=== PATIENT | female | born 1990 | race Caucasian/White ===

== ENCOUNTER 2021-10-12 09:59 | Outpatient (CLI) | payer OTHER, SELFPAY ==
[2021-10-12 11:13] LABS: Hematocrit 37.7 % (37.0-47.0); Hemoglobin 12.8 g/dL (12.0-15.0); Mean Corpuscular Hemoglobin 32.7 pg (26-34); Mean Corpuscular Volume 96.2 fl (80-100); Mean Platelet Volume 9.7 fl (7.4-10.4); Platelet Count Result 154 k/mm3 (150-375); Red Blood Count 3.92 M/mm3 (4.2-5.4); Red Cell Distribution Width 12.6 % (11.5-14.5); White Blood Count 10.6 K/mm3 (4.5-10.0)
[2021-10-12 11:22] LABS: Glucose 1 Hour PP 50gm Dose 87 mg/dL
[2021-10-12 12:03] LABS: HIV 1/2 Ab P24 Ag Result Negative (Negative)
== END 2021-10-12 10:00 | disposition home or self-care (01) ==
LOC: ANHLAB 10:01
PROVIDERS: Visit Provider Obstetrics & Gynecology
DX: Z34.90 Encounter for supervision of normal pregnancy, unspecified, unspecified trimester (principal); Z3A.00 Weeks of gestation of pregnancy not specified
CPT/HCPCS: 36415; 82947; 85027; 86703; G0432

== ENCOUNTER 2021-11-11 14:39 | Observation (INO) | payer OTHER, SELFPAY ==
--- NOTE | 2021-11-11 15:07 | OBADM ---
This patient, Alicia Ochoa, admitted to the OB room OB Post 116 for observation. Patient/family oriented to hospital policies and general routines including ID bracelet, bed and alarms, visiting hours, pain management, procedures, bathroom and other care routines, personal items, smoking policy, room service/diet, and visiting hours. Patient/Family are encouraged to report perceived risks to care and to ask questions if they do not understand what they are told or what they should do.
[2021-11-11 15:16] VITALS: BP 112/82; PULSE 81
[2021-11-11 15:31] VITALS: BP 114/76; PULSE 83
--- NOTE | 2021-11-11 15:47 | PM.OBTRLD ---
OB - Triage/Final Diagnosis Visit Information Reason for evaluation: other ( vaginal spotting yesterday. This has resolved.) Comments/Additional reasons for admission: I have assessed the risk for this patient, Aliciarodrigo Ochoa, and determined that she would benefit from observation care. Evaluation Vital signs: Vital Signs - 24 hr 11/11/21 15:16 11/11/21 15:31 Pulse Rate 81 83 Blood Pressure 112/82 114/76
--- NOTE | 2021-11-11 16:51 | PC.NURSE ---
1536- Spoke with DONNA Tamayo and symptoms reviewed. Orders to discharge to home.
== END 2021-11-11 16:05 | disposition home or self-care (01) ==
PROVIDERS: Admitting Provider Obstetrics & Gynecology; PCP Internal Medicine; Visit Provider Obstetrics & Gynecology
DX: O26.853 Spotting complicating pregnancy, third trimester (principal); Z3A.32 32 weeks gestation of pregnancy
CPT/HCPCS: G0378; G0379

== ENCOUNTER 2021-11-20 21:07 | Observation (INO) | payer OTHER, SELFPAY ==
[2021-11-20 21:31] VITALS: BP 125/86; PULSE 92
[2021-11-20 22:00] VITALS: BMI 25.2
[2021-11-20 22:02] LABS: Add Urine Microscopic? NO; Appearance Urine Clear (Clear); Bilirubin Urine Negative (Negative); Blood Urine Negative (Negative); Color Urine Colorless (Yellow); Glucose Urine UA Negative (Negative); Ketones Urine Negative (Negative); Leukocyte Esterase Ur Negative LEU/UL (NEGATIVE); Nitrate Urine Negative (Negative); Protein Urine Negative (Negative); Urobilinogen Urine Negative mg/dL (<2.0)
--- NOTE | 2021-11-21 12:21 | PM.OBTRLD ---
OB - Triage/Final Diagnosis Visit Information Comments/Additional reasons for admission: I have assessed the risk for this patient, Alicia Ochoa, and determined that she would benefit from observation care. Evaluation Laboratory results: Laboratory Tests 11/20/21 21:37 Urine Color Colorless Urine Appearance Clear Urine pH 7.0 Ur Specific [place] 1.000 L Urine Protein Negative Urine Glucose (UA) Negative Urine Ketones Negative Ur Blood (Man) Negative Urine Nitrate Negative Urine Bilirubin Negative Urine Urobilinogen Negative Ur Leukocyte Esterase Negative Vital signs: Vital Signs - 24 hr 11/20/21 21:31 Pulse Rate 92 Blood Pressure 125/86 Final Diagnosis (1) Abdominal pain affecting : Code(s): O26.899 - Other specified related conditions, unspecified trimester; R10.9 - Unspecified abdominal pain Status: Acute
== END 2021-11-20 22:55 | disposition home or self-care (01) ==
PROVIDERS: Admitting Provider Obstetrics & Gynecology; PCP Internal Medicine; Visit Provider Obstetrics & Gynecology
DX: O26.893 Other specified pregnancy related conditions, third trimester (principal); R10.9 Unspecified abdominal pain; Z3A.33 33 weeks gestation of pregnancy
CPT/HCPCS: 81003; 87086; G0378; G0379

== ENCOUNTER → 2021-11-25 13:18 | Outpatient (CLI) | payer OTHER, SELFPAY ==
--- NOTE | ~2021-11-25 | US_ITS ---
US OB follow up DATE: 11/25/2021 14:02 INDICATION: Vaginal bleeding, spotting 2 weeks ago TECHNIQUE: Real-time imaging via transabdominal approach COMPARISON: None FINDINGS: Live cordero intrauterine gestation with fetus in vertex presentation. heart rate of 125 bpm. Anterior placenta, no evidence of previa. OR[place]O measures 7.9 cm, slightly below 5th percentile ORLANOD of 8.1 cm. 95th percentile [place] is 24.8 cm. Biparietal diameter measures 8.53 cm; 34 weeks 3 days Head circumference 31.11 centimeters; 34 weeks 6 days Abdominal circumference 29.76 cm; 33 weeks 5 days Femur length 6.47 cm; 33 weeks 3 days Composite age by Hadlock formula is 34 weeks 1 day +/- 2 weeks 3 days with NESOTR of 01/05/2022, same as d etermined by LMP. Estimated weight is 2279 +/- 341.9 g. Estimated weight-GP: 33.6% Femur length/BPD 75.84, within normal range of 71.0-87.0 Head circumference/abdominal circumference 1.05, within normal range of 0.94-1.11 Femur length/abdominal circumference 21.73, within normal range of 20.00-24.00 Femur length/head circumference 20.79, within normal range of 19.50-21.87 IMPRESSION: Borderline oligohydramnios, with OR[place]O of 7.9 (5th percentile [place]O: 8.1 cm Estimated gestational age of 34 weeks 1 day +/- 2 weeks 3 days with NESTOR of 01/05/2022 Estimated weight is 2279 +/- 341.9 g Reviewed, dictated and finalized at [facility]. Reviewed, dictated and finalized at location A. IMPRESSION: Borderline oligohydramnios, with OR[place]O of 7.9 (5th percentile OLRANDO: 8. 1 cm Estimated gestational age of 34 weeks 1 day +/- 2 weeks 3 days with NESTOR of 2021 Estimated weight is 2279 +/- 341.9 g
== END ==
PROVIDERS: Visit Provider Obstetrics & Gynecology
DX: O26.853 Spotting complicating pregnancy, third trimester (principal); Z3A.34 34 weeks gestation of pregnancy
CPT/HCPCS: 76816

== ENCOUNTER 2021-12-04 18:20 | Observation (INO) | payer OTHER, SELFPAY ==
--- NOTE | 2021-12-04 18:20 | OBADM ---
This patient, Alicia Ochoa, admitted to the OB room OB Post 115 for observation. Patient/family oriented to hospital policies and general routines including ID bracelet, bed and alarms, visiting hours, pain management, procedures, bathroom and other care routines, personal items, smoking policy, room service/diet, and visiting hours. Patient/Family are encouraged to report perceived risks to care and to ask questions if they do not understand what they are told or what they should do.
[2021-12-04 18:30] VITALS: BMI 25.2
[2021-12-04 18:32] VITALS: BP 149/75; PULSE 78
[2021-12-04 18:45] VITALS: BP 137/77; PULSE 75
[2021-12-04 19:00] VITALS: BP 136/86; PULSE 73
[2021-12-04 19:15] VITALS: BP 128/78; PULSE 71
--- NOTE | 2021-12-04 21:49 | PM.OBTRLD ---
OB - Triage/Final Diagnosis Visit Information Comments/Additional reasons for admission: I have assessed the risk for this patient, Alicia Ochoa, and determined that she would benefit from observation care. Evaluation Vital signs: Vital Signs - 24 hr 12/04/21 18:32 12/04/21 18:45 12/04/21 19:00 Pulse Rate 78 75 73 Blood Pressure 149/75 H 137/77 136/86 12/04/21 19:15 Pulse Rate 71 Blood Pressure 128/78 Final Diagnosis (1) Vaginal bleeding during : Code(s): O46.90 - Antepartum hemorrhage, unspecified, unspecified trimester Status: Acute Plan: after in office cervical exam no further bleeding and reassuring heart tones noted; pt discharged home with strict return precautions
== END 2021-12-04 20:55 | disposition home or self-care (01) ==
PROVIDERS: Admitting Provider Obstetrics & Gynecology; Visit Provider Obstetrics & Gynecology
DX: O46.93 Antepartum hemorrhage, unspecified, third trimester (principal); Z3A.35 35 weeks gestation of pregnancy
CPT/HCPCS: G0378; G0379

== ENCOUNTER 2021-12-21 20:49 | Outpatient (CLI) | payer OTHER, SELFPAY | END 2021-12-21 21:45 | disposition home or self-care (01) | PROVIDERS: Visit Provider Obstetrics & Gynecology | DX: O41.8X90 Other specified disorders of amniotic fluid and membranes, unspecified trimester, not applicable or unspecified (principal) | CPT/HCPCS: 59025; 84112 ==

== ENCOUNTER 2022-01-02 07:54 | Outpatient (RCR) | payer OTHER, SELFPAY ==
--- NOTE | 2021-12-02 17:03 | PC.NURSE ---
BPP 04/07. labor precautions reviewed with patient. NST faxed to Dr. Flores.
[2021-12-05 16:24] VITALS: BP 120/72; PULSE 72
[2021-12-09 16:34] VITALS: BP 124/79; PULSE 95
[2021-12-12 17:00] VITALS: BP 119/72; PULSE 67
[2021-12-16 17:25] VITALS: BP 136/71; PULSE 80
[2021-12-19 16:54] VITALS: BP 125/79; PULSE 79
[2021-12-23 17:25] VITALS: BP 120/77; PULSE 80
[2021-12-26 16:21] VITALS: BP 129/75; PULSE 75
[2021-12-30 18:30] VITALS: BP 126/77; PULSE 79
--- NOTE | ~2022-01-02 | US_ITS ---
EXAMINATION: US OB limited w BPP DATE: 12/23/2021 17:10 INDICATION: History of oligohydramnios TECHNIQUE: Real-time pelvic ultrasound was performed. The interpreting radiologist was not present fo r the study. COMPARISON: 12/16/2021 FINDINGS: There is a single living fetus in vertex presentation. The placenta is anterior. heart rate is 113 beats per minute (bpm). The amniotic fluid index is 13.4 cm which is normal (normal range: 7.3 cm to 23.9 cm). Biophysical profile performed by the technologist: breathing (30 sec sustained breathing in 30 minutes): 2 out of 2 movement (3 gross body movements in 30 minutes): 2 out of 2 tone (one episode of thrrvea-emlhcinfm-worgotp limb movement): 2 out of 2 Amniotic fluid pocket (2 cm): 2 out of 2 Total score: 8 out of 8 IMPRESSION: 1. Single living fetus in vertex presentation. 2. Biophysical profile 8 out of 8. Reviewed, dictated and finalized at location F.
--- NOTE | ~2022-01-02 | US_ITS ---
EXAMINATION: US OB limited w BPP DATE: 12/02/2021 16:53 INDICATION: Oligohydramnios. TECHNIQUE: Real-time ultrasound of the pelvis was performed. COMPARISON: 11/27/2021. FINDINGS: There is a single living fetus in vertex presentation. The placenta is anterior. heart rate is 154 beats per minute (bpm). The amniotic fluid index is [7.92 cm, which is borderline low.] macro biometrics Biophysical profile performed by the technologist: breathing (30 sec sustained breathing in 30 minutes): 2 out of 2 movement (3 gross body movements in 30 minutes: 2 out of 2 tone (one episode of jtuxcyg-rtpznxckb-yudhfcc limb movement): 2 out of 2 Amniotic fluid pocket (2 cm): 2 out of 2 Total score: 8 out of 8 IMPRESSION: 1. Single living fetus in [vertex presentation.] 2. Borderline low [place]O (7.92 cm). 3. Biophysical profile 8 out of 8. Reviewed, dictated and finalized at location K.
--- NOTE | ~2022-01-02 | US_ITS ---
EXAMINATION: US OB limited w BPP DATE: 12/16/2021 17:11 INDICATION: Assess biophysical profile and amniotic fluid index during third trimester . TECHNIQUE: Real-time pelvic ultrasound was performed. The interpreting radiologist was not present fo r the study. COMPARISON: 12/09/2021 FINDINGS: There is a single living fetus in vertex presentation. The placenta is anterior. heart rate is 136 beats per minute (bpm). Normal amniotic fluid index of 11.4 cm (5th%-95%: 7.5-24.4 cm at 37 week s estimated gestational age) Biophysical profile performed by the technologist: breathing (30 sec sustained breathing in 30 minutes): 2 out of 2 movement (3 gross body movements in 30 minutes): 2 out of 2 tone (one episode of eskfmgv-zxjakzqsg-owroxnw limb movement): 2 out of 2 Amniotic fluid pocket (2 cm): 2 out of 2 Total score: 8 out of 8 IMPRESSION: 1. Single living fetus in vertex presentation with heart rate of 136 bpm. 2. Biophysical profile 8 out of 8. 3. Normal amniotic fluid index of 11.4 cm. Reviewed, dictated and finalized at location A.
--- NOTE | ~2022-01-02 | US_ITS ---
EXAMINATION: US OB BPP wo non-stress DATE: 11/27/2021 16:47 INDICATION: Oligohydramnios. Third trimester. TECHNIQUE: Real-time pelvic ultrasound was performed. COMPARISON: Ultrasound 11/25/2021 FINDINGS: There is a single living fetus in vertex presentation. The placenta is anterior. heart rate is 111 beats per minute (bpm). Biophysical profile performed by the technologist: breathing (30 sec sustained breathing in 30 minutes): 2 out of 2 movement (3 gross body movements in 30 minutes): 2 out of 2 tone (one episode of hdmvekc-necqysjsf-zgosyol limb movement): 2 out of 2 Amniotic fluid pocket (2 cm): 2 out of 2 Total score: 8 out of 8 IMPRESSION: 1. Single living fetus in vertex presentation. 2. Biophysical profile 8 out of 8. Reviewed, dictated and finalized at location A.
--- NOTE | ~2022-01-02 | US_ITS ---
EXAMINATION: US OB limited w BPP DATE: 12/09/2021 17:55 INDICATION: Small for gestational age, evaluate of physical profile and OR[place]O. TECHNIQUE: Real-time ultrasound of the pelvis was performed. COMPARISON: 12/02/2021 FINDINGS: There is a single living fetus in vertex presentation. The placenta is anterior. heart rate is 132 beats per minute (bpm). The amniotic fluid index is 8.97[ cm, which is low-normal. (5th to 95th percentile is 7.7 cm 24.9 cm)] Biophysical profile performed by the technologist: breathing (30 sec sustained breathing in 30 minutes): 2 out of 2 movement (3 gross body movements in 30 minutes: 2 out of 2 tone (one episode of zkcahgn-ozplaqkhp-jazbras limb movement): 2 out of 2 Amniotic fluid pocket (2 cm): 2 out of 2 Total score: 8 out of 8 IMPRESSION: 1. Single living fetus in vertex[ presentation.] 2. Normal placenta. 3. Biophysical profile 8 out of 8. 4. Calculated [place] of 8.97 cm, at the lower end of the normal range. Reviewed, dictated and finalized at location K.
--- NOTE | ~2022-01-02 | US_ITS ---
EXAMINATION: US OB BPP wo non-stress DATE: 12/30/2021 17:58 INDICATION: BPP and OR[place]O TECHNIQUE: Real-time ultrasound of the pelvis was performed. COMPARISON: 12/23/21. FINDINGS: There is a single living fetus in vertex presentation. The placenta is anterior . heart rate i s 125 beats per minute (bpm). The amniotic fluid index is 11.6 cm, which is normal (normal range 7.2 - 22.6). Biophysical profile performed by the technologist: breathing (30 sec sustained breathing in 30 minutes): 2 out of 2 movement (3 gross body movements in 30 minutes: 2 out of 2 tone (one episode of acytzji-mvoahgjaq-uomwahq limb movement): 2 out of 2 Amniotic fluid pocket (2 cm): 2 out of 2 Total score: 8 out of 8 IMPRESSION: 1. Single living fetus in [vertex presentation.] 2. [place]O 11.6 cm. 3. Biophysical profile 8 out of 8. Reviewed, dictated and finalized at location K. IMPRESSION: 1. Single living fetus in [vertex presentation.] 2. ORLANOD 11.6 cm. 3. Biophysical profile 8 out of 8.
== END 2022-01-08 02:47 | disposition home or self-care (01) ==
LOC: ANHOBOP 07:54
PROVIDERS: Visit Provider Obstetrics & Gynecology
DX: O41.03X0 Oligohydramnios, third trimester, not applicable or unspecified (principal); Z3A.34 34 weeks gestation of pregnancy; Z3A.35 35 weeks gestation of pregnancy; Z3A.36 36 weeks gestation of pregnancy; Z3A.37 37 weeks gestation of pregnancy; Z3A.38 38 weeks gestation of pregnancy; O36.8130 Decreased fetal movements, third trimester, not applicable or unspecified; Z3A.39 39 weeks gestation of pregnancy
CPT/HCPCS: 59025; 76815; 76819

== ENCOUNTER 2022-01-04 18:08 | Inpatient (IN) | payer OTHER, SELFPAY ==
[2022-01-04] VITALS (57 sets, daily range): BP systolic 103–162; BP diastolic 51–110; PULSE 54–132; TEMP 37.2–37.3; O2SAT 97–99; BMI 26.3
--- NOTE | 2022-01-04 18:08 | LDADM ---
This patient, Alicia Ochoa, was admitted to Labor/Delivery/Recovery 106 on 01/04/22 at 18:08. Plans for labor, pain management and were discussed with patient. Patient/family oriented to hospital policies and general routines including ID bracelet, bed and alarms, visiting hours, pain management, procedures, bathroom and other care routines, personal items, smoking policy, room service/diet and guest tray routines, infant security routines, and visiting hours. Patient/Family are encouraged to report perceived risks to care and to ask questions if they do not understand what they are told or what they should do. See OBIX for further documentation.
[2022-01-04 18:53] LABS: Basophils Percent Auto 0.3 % (0.2-1.2); Eosinophils Percent Auto 0.2 % (0-4.4); Hematocrit 42.6 % (37.0-47.0); Hemoglobin 14.4 g/dL (12.0-15.0); Immature Granulocyte Absolute 0.06 K/mm3 (0.00-0.031); Immature Granulocyte Percent A 0.4 % (0-0.5); Lymphocytes Absolute Auto 1.79 K/mm3 (0.9-3.2); Lymphocytes Percent Auto 11.8 % (18.3-44.2); Mean Corpuscular HGB Conc 33.8 g/dl (32-36); Mean Corpuscular Hemoglobin 31.6 pg (26-34); Mean Corpuscular Volume 93.6 fl (80-100); Mean Platelet Volume 10.3 fl (7.4-10.4); Monocytes Absolute Auto 0.7 K/mm3 (0.1-0.6); Monocytes Percent Auto 4.6 % (2.6-8.5); Neutrophils Absolute Auto 12.5 K/mm3 (1.3-6.7); Neutrophils Percent Auto 82.7 % (45.5-73.1); Platelet Count Result 158 k/mm3 (150-375); Red Blood Count 4.55 M/mm3 (4.2-5.4); Red Cell Distribution Width 12.9 % (11.5-14.5); White Blood Count 15.1 K/mm3 (4.5-10.0)
[2022-01-04] MEDS: OXYTOCIN 30 UNITS/NS 500 ML 30 UNITS/500 ML BAG 125 UNITS IV CONT (19:33)
[2022-01-04] MEDS: LACTATED RINGERS 1,000 ML 125 ML IV CONT ×2 (19:33→21:34)
--- NOTE | 2022-01-04 20:13 | PM.IMHP ---
H&P: HPI History of Present Illness Date/Time: 01/04/22 20:13 Alicia is a 31yo @ 38.6wks (NESTOR 01/05/22) who presented for induction but was found to be russ and was 3cm dilated (was closed on 01/01/22). She has had some bloody show/spotting on and off. No LOF. Good movement. 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 - possible connective tissue disorder Chief Complaint: contractions Review of Systems Review of Systems: All systems reviewed & are unremarkable except as noted in HPI and below (HPI) [facility] Past Medical History Medical History Anxiety Surgical History Surgical History H/O nasal septoplasty Family History Family History Grandparent Diabetes mellitus Grandparent Dementia Grandparent Heart disease Grandparent Family history of cancer Grandparent Carcinoma of colon Father Hypertension Grandparent Leukemia Glaucoma Social History Social History Smoking status: Never smoker Alcohol intake: never Substance use: never Gender identity (if verbalized by the patient): Female Sexual Orientation (if Verbalized by the Patient): Straight or Heterosexual Spiritual care concerns: No Meds Home Medications and Allergies Home Medications Medication Instructions Recorded Confirmed Type prenat.vits,zaki,nau-stlv-qvjgy 1 tablet PO DAILY 09/11/21 01/04/22 History Allergies Allergy/AdvReac Type Severity Reaction Status Date / Time formaldehyde Allergy Intermediate Rash Verified 01/04/22 18:21 nickel Allergy Intermediate Rash Verified 01/04/22 18:21 Vital Signs Vital Signs - 24 hr 01/04/22 19:00 01/04/22 19:25 01/04/22 19:33 Temperature 99.1 F 99.1 F Pulse Rate 77 Blood Pressure 137/81 01/04/22 19:46 01/04/22 20:01 Temperature Pulse Rate 84 85 Blood Pressure 131/84 143/85 H Exam Const: General: cooperative, healthy appearing, comfortable and no acute distress Resp: Effort & Inspection: normal respiratory effort Cardio: Rate: regular rate : Other: FHT's:130's/ mod indra/ + accels/ no decels - cat 1 TOCO: ctx's q 2-3min Cervix: 4/70/-1 Membranes: AROM, clear 2024 Presentation: cephalic Skin: General skin exam: normal color Neuro: General: patient oriented x3 Extrem: General: normal to inspection Psych: Appearance: grossly normal Affect: normal affect Attitude: cooperative H&P: Results Labs Labs: Short CBC 01/04/22 Range/Units 18:48 WBC 15.1 H (4.5-10.0) K/mm3 Hgb 14.4 (12.0-15.0) g/dL Hct 42.6 (37.0-47.0) % Plt Count 158 (150-375) k/mm3 Assessment and Plan Assessment and plan (1) : Qualifiers: Weeks of gestation: 39 weeks Qualified Code(s): Z3A.39 - 39 weeks gestation of Code(s): Z34.90 - Encounter for supervision of normal , unspecified, unspecified trimester Status: Acute Additional Plan - Admitted to L&D and found to be russ with favorable cervix - Will augment with pitocin; s/p AROM, clear - Continuous monitoring; currently reassuring - GBS negative - Anesthesia consult PRN pain
--- NOTE | 2022-01-04 20:28 | WPDANESEPP ---
Anes - Eval Pre Procedure Date/Time: 01/04/22 20:28 Pre Op Diagnosis: IOL Patient Data Age: 31 Gender: F Height: 1.83 m Weight: 88 kg Last Vital Signs Temp 37.3 C 01/04/22 19:25 Pulse 83 01/04/22 20:27 BP 138/94 H 01/04/22 20:27 Allergies Allergy/AdvReac Type Severity Reaction Status Date / Time formaldehyde Allergy Intermediate Rash Verified 01/04/22 18:21 nickel Allergy Intermediate Rash Verified 01/04/22 18:21 Home Medications Medication Instructions Recorded Confirmed Type prenat.vits,zaki,zun-ehzl-jjbyl 1 tablet PO DAILY 09/11/21 01/04/22 History Laboratory Tests 01/04/22 01/04/22 01/04/22 18:48 18:48 18:48 WBC 15.1 K/mm3 H K/mm3 (4.5-10.0) RBC 4.55 M/mm3 M/mm3 (4.2-5.4) Hgb 14.4 g/dL g/dL (12.0-15.0) Hct 42.6 % % (37.0-47.0) MCV 93.6 fl fl (80-100) MCH 31.6 pg pg (26-34) MCHC 33.8 g/dl g/dl (32-36) RDW 12.9 % % (11.5-14.5) Plt Count 158 k/mm3 k/mm3 (150-375) MPV 10.3 fl fl (7.4-10.4) Immature Gran % (Auto) 0.4 % % (0-0.5) Neut % (Auto) 82.7 % H % (45.5-73.1) Lymph % (Auto) 11.8 % L % (18.3-44.2) [place] % (Auto) 4.6 % % (2.6-8.5) Eos % (Auto) 0.2 % % (0-4.4) Baso % (Auto) 0.3 % % (0.2-1.2) Lymph # (Auto) 1.79 K/mm3 K/mm3 (0.9-3.2) [place] # (Auto) 0.7 K/mm3 H K/mm3 (0.1-0.6) Eos # (Auto) 0.0 K/mm3 K/mm3 (0-0.3) Baso # (Auto) 0.0 K/mm3 K/mm3 (0.0-0.1) Abs Immat Gran (auto) 0.06 K/mm3 H K/mm3 (0.00-0.031) Absolute Neuts (auto) 12.5 K/mm3 H K/mm3 (1.3-6.7) Absolute Nucleated RBC 0.0 K/mm3 K/mm3 (0.0-0.012) Nucleated RBC % 0.0 % % (0.0-0.2) RPR Pending Blood Type A Positive Antibody Screen Negative Patient hx anesthesia problems: none Family hx anesthesia problems: none Results Review: All pre-operative results and documents have been reviewed as part of the pre-operative evaluation. [facility] Past Medical History Medical History Anxiety Surgical History Surgical History H/O nasal septoplasty Family History Family History Grandparent Diabetes mellitus Grandparent Dementia Grandparent Heart disease Grandparent Family history of cancer Grandparent Carcinoma of colon Father Hypertension Grandparent Leukemia Glaucoma Social History Social History Smoking status: Never smoker Alcohol intake: never Substance use: never Gender identity (if verbalized by the patient): Female Sexual Orientation (if Verbalized by the Patient): Straight or Heterosexual Spiritual care concerns: No Exam Day of Procedure 01/04/22 20:28 Patient weight: normal Heart: regular rate and rhythm Lungs: normal air movement Airway: Mallampati scale class II Neurological: alert and oriented
[2022-01-05] VITALS (27 sets, daily range): BP systolic 104–144; BP diastolic 49–96; PULSE 54–219; RESP 16–18; TEMP 36.2–37.3; O2SAT 98
--- NOTE | 2022-01-05 03:19 | PM.OBPRVD ---
OB - Delivery Note Procedure Delivery date: 01/05/22 Events: Other (Labor augmentation) Delivery augmentation: Rupture of Membranes and Pitocin Delivery monitor: External FHT and External Uterine Route of delivery: Laceration Description: Labial (right) Delivery repair: vicryl Specimen: No Quantitative Blood Loss (ml): 100 Anesthesia type: Epidural Disposition: Floor [place] Baby Date of : 01/05/22 Time of : 02:54 Weeks of gestation at delivery: 40 gender: Female presentation: vertex position: Right Occiput Anterior Placenta delivery description: Expressed Cord Vessel Description: 3 Vessels, Nuchal Cord, Loose and Clamped/Cut score one minute: 9 score five minutes: 9 Narrative: Alicia progressed to complete dilation with strong desire to push. She pushed for approximately 40 minutes with good maternal effort. She delivered the head over intact perineum. Nuchal cord was noted but loose and delivered through. She easily delivered the infant's shoulders and body without complication. The was immediately placed skin to skin and had spontaneous cry. Delayed cord clamping was performed. The umbilical cord was then clamped and cut. A segment of the cord was collected for cord gases. The remaining cord blood was collected for typing. With Pitocin running and gentle downward traction on the cord, the placenta delivered without complications. Minimal bleeding and the fundus was found to be firm. Patient was examined and a right labial laceration was noted. It was repaired using 3-0 Vicryl in the normal fashion. Good hemostasis was noted. Uterus remained firm. Sponge, lap, instrument, and needle counts were correct at the end the procedure. Mom and baby were left bonding in the birthing suite in a stable condition. [facility] Delivery Billing Delivery Delivery: Delivery Charge
[2022-01-05] MEDS: OXYTOCIN 30 UNITS/NS 500 ML 30 UNITS/500 ML BAG 125 UNITS IV CONT (03:20)
[2022-01-05] MEDS: WITCH HAZEL 40 PADS 1 PAD TOPICAL (05:51)
[2022-01-05] MEDS: BENZOCAINE 20% AER SPR (*SP) 56 GM CAN 1 SPRAY TOPICAL (05:51)
[2022-01-05] MEDS: DOCUSATE SODIUM 100 MG CAPSULE PO ×2 (09:02→17:17)
[2022-01-05] MEDS: MULTIVIT/MIN/PREN/FOL AC/IRON TABLET 1 TAB PO (09:02)
--- NOTE | 2022-01-05 09:12 | OBPPTRN ---
0641-Patient transferred to post room #290 via wheelchair. Support person present. Oriented to unit, room, information board, rooming in, admission packet and security measures. Patient verbalizes understanding.
[2022-01-05] MEDS: LANOLIN (LANSINOH) 7.5 GM CREAM 1 APPLIC TOPICAL (10:17)
[2022-01-05] MEDS: IBUPROFEN 600 MG TABLET PO ×3 (10:17→23:32)
[2022-01-06] VITALS: BP 124/79; PULSE 65; RESP 16; TEMP 36.6
--- NOTE | 2022-01-06 07:33 | P.PNOB_ITS ---
OB - PN: Subj Subjective Date/time seen: 01/06/22 07:09 Narrative: PPD#1 Alicia reports doing well today. 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 Her pain is controlled. She is tolerating regular diet, voiding, passing gas, and ambulating without issues. She is breast feeding w/o issue. She would like to go home. OB - PN: Obj Data Labs CBC & Chem 7: 01/06/22 04:56 Labs: Laboratory Results - last 24 hr 01/06/22 04:56 Hgb 12.0 Hct 37.0 OB - PN A/P Assessment and Plan (1) Normal vaginal delivery of first : Code(s): O80 - Encounter for full-term uncomplicated delivery Status: Acute Plan day: 1 Plan: routine care and discharge home Comments: - Pelvic rest; take meds as prescribed - ER return precautions: fever, n/v/abd pain, bleeding, HTN Time Spent With Patient Time: Total time spent is greater than 50% in coordination of care (as documented) at patient's floor/unit and/or counseling patient: Review of Systems Constitutional: Constitutional: Denies chills, Denies fever(s) and Denies headache(s) Eyes: Eyes: Denies change in vision ENT: Denies dizziness and Denies headache(s) Cardiovascular: Cardiovascular: Denies chest pain, Denies palpitations and Denies dyspnea Respiratory: Respiratory: Denies cough and Denies dyspnea Gastrointestinal: Gastrointestinal: Denies nausea and Denies vomiting Neurologic: Denies dizziness and Denies headache(s) Endocrine: Endocrine: Denies palpitations Exam Const: General: cooperative, comfortable and no acute distress Orientation/consciousness: patient oriented x3 Resp: Effort & Inspection: normal respiratory effort Auscultation: clear to auscultation bilaterally Cardio: Rate: regular rate GI: Inspection: non-distended GI Palp: No abdominal tenderness and Yes Soft to palpation Auscultation: normal bowel sounds : Other: fundus firm Skin: General skin exam: normal color Neuro: General: patient oriented x3 Extrem: General: normal to inspection Psych: Appearance: grossly normal Affect: normal affect Attitude: cooperative
[2022-01-06 08:10] VITALS: BP 120/76; PULSE 59; RESP 18; TEMP 37.6; O2SAT 98
[2022-01-06] MEDS: MULTIVIT/MIN/PREN/FOL AC/IRON TABLET 1 TAB PO (08:12)
[2022-01-06] MEDS: BENZOCAINE 20% AER SPR (*SP) 56 GM CAN 1 SPRAY TOPICAL (08:12)
[2022-01-06] MEDS: DOCUSATE SODIUM 100 MG CAPSULE PO (08:12)
[2022-01-06] MEDS: IBUPROFEN 600 MG TABLET PO (08:12)
[2022-01-06] MEDS: LANOLIN (LANSINOH) 7.5 GM CREAM 1 APPLIC TOPICAL (08:12)
[2022-01-06] MEDS: WITCH HAZEL 40 PADS 1 PAD TOPICAL (08:13)
[2022-01-06 08:20] LABS: Rapid Plasma Reagin Non-Reactive (NonReactive)
[2022-01-06 08:29] VITALS: PULSE 65; RESP 16; O2SAT 98
--- NOTE | 2022-01-06 08:56 | WPDANLDPN2 ---
Anes-Prog Note L&D Date/Time: 01/06/22 08:56 Comfortable throughout: labor and delivery Neuraxial method: epidural Epidural/Spinal procedure site: clean & non-tender Neuro status: Neuro function grossly intact. Cardiovascular status: normal Respiratory status: normal Airway patency: baseline Mental status: baseline Post-Op hydration status: normal Vital Signs: Last Vital Signs Temp 37.6 C 01/06/22 08:10 Pulse 65 01/06/22 08:29 Resp 16 01/06/22 08:29 BP 120/76 01/06/22 08:10 Pulse Ox 98 01/06/22 08:29 Pain score (VAS): 0 I/O: Intake & Output 01/05/22 01/06/22 01/06/22 23:59 07:59 15:59 Intake Total 500 240 Balance 500 240 Post-procedural complaints: none Patient feedback: Patient satisfied with anesthetic care.
--- NOTE | 2022-01-06 12:10 | PC.NURSE ---
Teaching and assessment done at 1205. Mother led conversation with her experience with feeding baby so far. Patient had latched to right breast in side lying position. Mother works well with her with encouragement. Primary RN states mom had blistering on nipples. Mom had previously connected with Sherry Jordan a medical social consultant and had watched videos and got info from her on improving latch. While assessing the feeding was in good alignment, in close to the breast, lips flanged out, good jaw movement was noted and was sucking and swallowing. Mom states she is sore so it is hard to tell if she is getting a better latch. Mom states this feeding was less painful than previous feedings. Discussed ways to get a deep latch each time. Reviewed working with , breast, nipples and how to protect the nipples with an optimal deep latch, good positioning, and good hand washing. Encouraged understanding the benefits of skin to skin, responding to feeding cues, frequencies of feeding 8-12 times in 24 hours, duration of feedings, milk production, intake/output feeding sheet and signs of adequate intake encouraging swallowing at the breast. Reviewed positioning and alignment, supporting breast, off-centered (asymmetrical latch) and leading with the chin with big open wide gape.Education given to mother of how to visualize suck/swallow ratios and drinking at the breast. Infant was able to maintain latch with some discomfort to mother. Nipple care reviewed with optimal latch and good positioning, comfort, then leave open to air-dry, colostrum may be left on nipples to dry but have clean hands when touching the nipple/breast as needed. Mother voiced understanding of the education shared, calling for assistance if the infant does not latch or if there is discomfort with . Post feeding right nipple was noted to have blisters across center. Nipple shape was noted to be normal post feed. Left nipple noted to have an abrasion across the center. No bleeding noted on either breast. Mother states she had spoke with Sherry the healthcare risk control consultant about hand expressing for next feed. Mother encouraged to call out for help if needed and to pump for stimulation if not putting infant to breast. Encouraged patient to keep in touch with provider. Reported to the primary RN.
[2022-01-06] MEDS: MEASLES,MUMPS,RUBELLA VACCINE 0.5 ML VIAL SUB-Q (16:31)
[2022-01-07 10:43] VITALS: BP 133/75; PULSE 75; RESP 16; TEMP 37.2; O2SAT 99
--- NOTE | 2022-01-13 14:14 | PM.OBDSVD ---
DS: Admitting Diagnosis Discharge Date 01/06/22 Admitting Diagnosis Labor augmentation DS: Discharge Diagnosis Discharge Diagnosis (1) Normal vaginal delivery of first : Code(s): O80 - Encounter for full-term uncomplicated delivery Status: Acute OB - DS: Summary OB Procedures : NST and Ultrasound OB Procedures Intrapartum: Spontaneous Vag Delivery OB Procedures: : None Peripartum Data Infant Delivery Method: Natural Vaginal Laceration Description: Labial complications: none 1: Gender: Female Disposition of : home Status at Discharge Functional status at discharge: independent ambulation Overall status at discharge: patient is back to baseline Time Spent with Patient Time attestation: Total time spent providing and/or coordinating discharge services: Time spent: Less than 30 minutes Exam Const: General: cooperative, comfortable and no acute distress Orientation/consciousness: patient oriented x3 Resp: Effort & Inspection: normal respiratory effort Auscultation: clear to auscultation bilaterally Cardio: Rate: regular rate GI: Inspection: non-distended GI Palp: No abdominal tenderness and Yes Soft to palpation Auscultation: normal bowel sounds : Other: fundus firm Skin: General skin exam: normal color Neuro: General: patient oriented x3 Extrem: General: normal to inspection Psych: Appearance: grossly normal Affect: normal affect Attitude: cooperative Discharge Plan Discharge Attending physician on discharge: Sade Flores Consulting providers: Ayesha Ybarra ; Yane Sung Discharging Clinician: Sade Flores Anticipated Discharge Date/Time: 01/06/22 16:00 Patient Disposition: Home, Self-Care Activity: may shower and pelvic rest Diet: regular Discharge Instructions: Education: Mom and Baby Guide Given to: Mother Follow-Up: Call your delivering provider's office for an appointment to be seen in: 1 Week Mom and baby should come to the [facility] for the follow-up appointment. Appointment Date/Time: January 07, 2022 at 10:00 am What to expect at your follow-up visit: Blood Pressure Check Physical Assessment Call [phone] if you are unable to keep your appointment time. BREAST CARE: * Wear a snug supportive bra. * For engorgement discomfort: Breast Feeding: * Apply warm moist washcloths * Express milk as needed to relieve engorgement * Wear loose clothing * For sore nipples: * Identify correct latch-on * Apply warm moist washcloths before and after nursing * Air dry nipples after nursing * May apply Lansinoh cream to nipples EPISIOTOMY/PERINEAL CARE: * Until bleeding stops, use your sergio bottle after urinating * Change your pad frequently throughout the day * You may take sitz baths several times a day (fill your bathtub with warm water and soak for 20 minutes.) Do NOT bathe in the water * No tub baths until seen by your physician - You may shower ACTIVITY: * Rest as much as possible. * Do not exercise or lift anything heavier than your baby (such as laundry or other children.) * Avoid stairs or driving as much as possible. * Do not put anything into the vagina. No douching, tampons, or sexual activity until seen by physician. NOTIFY PHYSICIAN IF YOU HAVE ANY QUESTIONS OR IF ANY OF THE FOLLOWING SYMPTOMS OCCUR: * If your vaginal area becomes red, swollen, or more painful than what you have experienced in the hospital. * If your vaginal bleeding becomes foul smelling. * If your vaginal bleeding becomes more heavy than a period or if your bleeding changes from the color it is now to bright red. However, you may pass an occasional walnut-sized clot once or twice for the first week . * If you experience a sharp, shooting pain in your calves. * If you discover a hard, reddened ar
== END 2022-01-06 17:24 | disposition home or self-care (01) | DRG 807 ==
LOC: ANHLDR 18:13 → ANHOB2 01-05 07:21
PROVIDERS: Admitting Provider Obstetrics & Gynecology; Visit Provider Obstetrics & Gynecology
DX: O99.344 Other mental disorders complicating childbirth (principal); Z37.0 Single live birth; F41.9 Anxiety disorder, unspecified; O70.0 First degree perineal laceration during delivery; Z3A.40 40 weeks gestation of pregnancy
CPT/HCPCS: 36415; 85014; 85018; 85025; 86592; 86850; 86900; 86901; 90710; A9270; J2590; J2795; J7120

== ENCOUNTER 2022-10-01 15:24 | Outpatient (CLI) | payer OTHER, SELFPAY ==
[2022-10-01 19:50] LABS: Alanine Aminotransferase 17 U/L (6-35); Albumin Level 4.4 g/dL (3.5-5.1); Alkaline Phosphatase 66 U/L (38-126); Anion Gap 5 mmol/L (8-16); Aspartate Amino Transferase 35 U/L (14-36); Bilirubin,Total 0.5 mg/dL (0.2-1.3); Blood Urea Nitrogen 9 mg/dL (7-17); Calcium 8.6 mg/dL (8.4-10.2); Carbon Dioxide 29 mmol/L (22-30); Chloride 105 mmol/L (98-107); Cholesterol 140 mg/dL (0-200); Estimated Glomerular Filt Rate > 60; Glucose 95 mg/dL (65-110); HDL Direct 74 mg/dL; Potassium 3.8 mmol/L (3.4-5.0); Sodium 139 mmol/L (137-145); Triglycerides 62 mg/dL (<150)
[2022-10-01 20:02] LABS: LDL Cholesterol Direct 43 mg/dL
[2022-10-01 20:42] LABS: Basophils Absolute Auto 0.1 K/mm3 (0.0-0.1); Basophils Percent Auto 0.6 % (0.2-1.2); Eosinophils Absolute Auto 0.1 K/mm3 (0-0.3); Eosinophils Percent Auto 1.3 % (0-4.4); Hematocrit 42.9 % (37.0-47.0); Hemoglobin 14.3 g/dL (12.0-15.0); Immature Granulocyte Absolute 0.02 K/mm3 (0.00-0.031); Immature Granulocyte Percent A 0.3 % (0-0.5); Lymphocytes Absolute Auto 1.91 K/mm3 (0.9-3.2); Lymphocytes Percent Auto 24.1 % (18.3-44.2); Mean Corpuscular HGB Conc 33.3 g/dl (32-36); Mean Corpuscular Hemoglobin 30.8 pg (26-34); Mean Corpuscular Volume 92.5 fl (80-100); Mean Platelet Volume 10.7 fl (7.4-10.4); Monocytes Absolute Auto 0.5 K/mm3 (0.1-0.6); Monocytes Percent Auto 5.8 % (2.6-8.5); Neutrophils Absolute Auto 5.4 K/mm3 (1.3-6.7); Neutrophils Percent Auto 67.9 % (45.5-73.1); Platelet Count Result 217 k/mm3 (150-375); Red Blood Count 4.64 M/mm3 (4.2-5.4); Red Cell Distribution Width 12.4 % (11.5-14.5); White Blood Count 7.9 K/mm3 (4.5-10.0)
[2022-10-01 21:11] LABS: Ferritin 9.67 ng/mL (6.24-137)
== END 2022-10-01 15:25 | disposition home or self-care (01) ==
LOC: ANHGOSHLAB 15:26
PROVIDERS: PCP Family Medicine; Visit Provider Family Medicine
DX: R53.83 Other fatigue (principal)
CPT/HCPCS: 36415; 80053; 80061; 82607; 82728; 84443; 85025

== ENCOUNTER 2023-08-13 11:14 | Outpatient (CLI) | payer OTHER, SELFPAY ==
[2023-08-13 20:00] LABS: Basophils Percent Auto 0.4 % (0.2-1.2); Eosinophils Absolute Auto 0.1 K/mm3 (0-0.3); Eosinophils Percent Auto 0.9 % (0-4.4); Hematocrit 41.1 % (37.0-47.0); Hemoglobin 13.8 g/dL (12.0-15.0); Immature Granulocyte Absolute 0.02 K/mm3 (0.00-0.031); Immature Granulocyte Percent A 0.2 % (0-0.5); Lymphocytes Absolute Auto 1.49 K/mm3 (0.9-3.2); Lymphocytes Percent Auto 18.6 % (18.3-44.2); Mean Corpuscular HGB Conc 33.6 g/dl (32-36); Mean Corpuscular Hemoglobin 30.2 pg (26-34); Mean Corpuscular Volume 89.9 fl (80-100); Monocytes Absolute Auto 0.5 K/mm3 (0.1-0.6); Monocytes Percent Auto 6.6 % (2.6-8.5); Neutrophils Absolute Auto 5.9 K/mm3 (1.3-6.7); Neutrophils Percent Auto 73.3 % (45.5-73.1); Platelet Count Result 176 k/mm3 (150-375); Red Blood Count 4.57 M/mm3 (4.2-5.4); Red Cell Distribution Width 12.2 % (11.5-14.5)
[2023-08-13 21:19] LABS: Iron 152 ug/dL (37-170)
[2023-08-13 21:29] LABS: Percent Iron Saturation 41 % (20-50)
[2023-08-13 21:56] LABS: Ferritin 6.23 ng/mL (6.24-137)
[2023-08-18 14:52] LABS: Prolactin 2.3 ng/mL (***)
== END 2023-08-13 11:15 | disposition home or self-care (01) ==
LOC: ANHGOSHLAB 11:15
PROVIDERS: PCP Family Medicine; Visit Provider Obstetrics & Gynecology
DX: N92.0 Excessive and frequent menstruation with regular cycle (principal)
CPT/HCPCS: 36415; 82728; 83540; 83550; 84146; 84443; 85025

== ENCOUNTER 2024-03-23 12:47 | Outpatient (CLI) | payer OTHER, SELFPAY ==
--- NOTE | ~2024-03-23 | US_ITS ---
EXAMINATION: US OB <=14 wk fetus w TV DATE: 03/23/2024 13:28 INDICATION: Antepartum hemorrhage during first trimester TECHNIQUE: Real-time pelvic ultrasound utilizing both a transvaginal and transabdominal probe was pe rformed. The interpreting radiologist was not present for the study. COMPARISON: None. FINDINGS: The uterus measures 12.4 x 6.6 x 8.9 cm. There is an intrauterine gestational sac. A yolk sac and fe latoya pole are identified. The crown rump length measures 3.5 cm, which correlates with an estimated ge stational age of 10 weeks and 3 days. heart motion is identified measuring 177 beats per minute (bpm) by M-mode Doppler. No evident subchorionic hematoma. The right ovary measures 2.3 x 1.6 x 2.4 cm. The left ovary measures 3.1 x 3.2 x 3.0 cm. 2.2 cm hypoe choic likely corpus luteum cyst in the left ovary. There is no free fluid in the pelvis. IMPRESSION: 1. Single living fetus with heart rate of 177 bpm. No evident subchorionic hematoma. 2. Gestational age by ultrasound of 10 weeks 3 day(s) +/- 7 day(s) with ultrasound estimated date of delivery ([facility]) of 10/16/2024. Reviewed, dictated and finalized at location A. IMPRESSION: 1. Single living fetus with heart rate of 177 bpm. No evident subchorioni c hematoma. 2. Gestational age by ultrasound of 10 weeks 3 day(s) +/- 7 day(s) with ultras ound estimated date of delivery ([facility]) of 10/16/2024.
== END 2024-03-23 12:48 ==
PROVIDERS: PCP Family Medicine; Visit Provider Obstetrics & Gynecology
DX: O46.91 Antepartum hemorrhage, unspecified, first trimester (principal); Z3A.10 10 weeks gestation of pregnancy
CPT/HCPCS: 76801; 76817

== ENCOUNTER 2024-03-29 15:26 | Outpatient (CLI) | payer OTHER, SELFPAY ==
[2024-03-29 18:38] LABS: Basophils Percent Auto 0.2 % (0.2-1.2); Eosinophils Absolute Auto 0.1 K/mm3 (0-0.3); Hematocrit 41.6 % (37.0-47.0); Hemoglobin 15.3 g/dL (12.0-15.0); Immature Granulocyte Absolute 0.04 K/mm3 (0.00-0.031); Immature Granulocyte Percent A 0.4 % (0-0.5); Lymphocytes Absolute Auto 1.74 K/mm3 (0.9-3.2); Lymphocytes Percent Auto 17.8 % (18.3-44.2); Mean Corpuscular HGB Conc 36.8 g/dl (32-36); Mean Corpuscular Hemoglobin 33.1 pg (26-34); Mean Platelet Volume 10.3 fl (7.4-10.4); Monocytes Absolute Auto 0.4 K/mm3 (0.1-0.6); Monocytes Percent Auto 3.6 % (2.6-8.5); Neutrophils Absolute Auto 7.5 K/mm3 (1.3-6.7); Platelet Count Result 200 k/mm3 (150-375); Red Blood Count 4.62 M/mm3 (4.2-5.4); Red Cell Distribution Width 13.1 % (11.5-14.5); White Blood Count 9.8 K/mm3 (4.5-10.0)
[2024-03-29 19:24] LABS: HIV 1/2 Ab P24 Ag Result Negative (Negative)
[2024-03-29 19:54] LABS: Hepatitis B Surface Antigen Negative (Negative); Rubella IgG Antibody 52.4 IU/ML
[2024-03-30 06:16] LABS: Rapid Plasma Reagin Non-Reactive (NonReactive)
[2024-03-30 12:52] LABS: CMV IgG Antibody <0.60 U/mL
[2024-04-07 13:38] LABS: SMA 2.0 RISK VARIANT NOT DETECTED
[2024-04-11 15:26] LABS: CF Result NEGATIVE (NEGATIVE)
== END 2024-03-29 15:27 | disposition home or self-care (01) ==
LOC: ANHGOSHLAB 15:28
PROVIDERS: PCP Family Medicine; Visit Provider Obstetrics & Gynecology
DX: Z34.90 Encounter for supervision of normal pregnancy, unspecified, unspecified trimester (principal); Z3A.00 Weeks of gestation of pregnancy not specified
CPT/HCPCS: 36415; 81220; 81329; 84702; 85025; 86592; 86644; 86703; 86747; 86762; 86787; 86850; 86900; 86901; 87086; 87088; 87340; G0432

== ENCOUNTER 2024-05-18 16:02 | Outpatient (CLI) | payer OTHER, SELFPAY | END 2024-05-18 16:03 | disposition home or self-care (01) | LOC: ANHGOSHLAB 16:03 | PROVIDERS: PCP Family Medicine; Visit Provider Obstetrics & Gynecology | DX: R32 Unspecified urinary incontinence (principal) | CPT/HCPCS: 87086 ==

== ENCOUNTER 2024-06-20 16:04 | Emergency (ER) | payer OTHER, SELFPAY ==
[2024-06-20 16:11] VITALS: BP 124/74; PULSE 82; RESP 16; TEMP 36.8; O2SAT 99
--- NOTE | 2024-06-20 16:27 | ED.EAR ---
HPI - Ear Problem General Chief complaint: Ear Stated complaint: Ear Pain Time Seen by Provider: 06/20/24 16:27 Source: patient Mode of arrival: ambulatory Limitations: no limitations History of Present Illness HPI Narrative: 34-year-old female presents with complaint bilateral ear pressure, worse to left ear for the past 2 days. Patient reports that her seasonal allergies have been acting, has had a lot congestion, sinus pressure. Patient is 22 weeks and does not want to take any antihistamines or nasal sprays to treat those symptoms. Afebrile. Concern for infection today. All Systems reviewed and negative except as noted above. Related Data Home Medications Medication Instructions Recorded Confirmed aspirin 81 mg chewable tablet 81 mg PO DAILY 05/17/24 06/20/24 Allergies Allergy/AdvReac Type Severity Reaction Status Date / Time formaldehyde Allergy Intermediate Rash Verified 06/20/24 16:15 nickel Allergy Intermediate Rash Verified 06/20/24 16:15 Review of Systems Review of Systems: CONSTITUTIONAL: Denies fever, chills, or sweats. EYES: Denies visual changes, redness, or discharge. ENT: Reports rhinorrhea, congestion. Denies sore throat. Reports bilateral ear pressure. CARDIOVASCULAR: Denies chest pain, palpitations, or edema. RESPIRATORY: Denies cough or dyspnea. GASTROINTESTINAL: Denies abdominal pain, nausea, vomiting, or diarrhea. GENITOURINARY: Denies dysuria or hematuria. SKIN: Denies rash or itching. MUSCULOSKELETAL: Denies back pain, joint pain, or myalgia. NEUROLOGIC: Denies headache, numbness, or weakness. PSYCHIATRIC: Denies anxiety or depression. All other systems reviewed are negative, except as documented in HPI. [facility] Past Medical History Medical History Anxiety Encounter for removal of skin lesion Headache, migraine Surgical History Surgical History H/O nasal septoplasty 2019 Family History Family History Grandparent Diabetes mellitus Grandparent Dementia Grandparent Heart disease Grandparent Family history of cancer Grandparent Carcinoma of colon Father Hypertension Grandparent Leukemia Glaucoma Mother Retinal disease Social History Social History Smoking status: Never smoker Alcohol intake: current Alcohol use details: minimal Substance use: never Substance use type: does not use Lack of Transportation: No Lack of Food: Never True Current Housing: I Have Housing Concerned About Future Housing: No Difficulty Paying Gas/Electric Bills: No Difficulty Paying for Meds: No Currently Unemployed: No Education: Master's Degree or Higher Difficulty w/ Childcare or Family Care: No Living arrangements: with family 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 There is no relevant family history pertinent to the presenting complaint. Exam Narrative: GENERAL: This is a well-nourished, well-developed patient, in no apparent distress. HEAD: normocephalic, atraumatic. EYES: PERRL. Sclera clear/white. Vision is grossly intact. EARS: External ears normal, auditory canals clear and without drainage, yellow fluid bilateral TMs, opaque, dull light reflex without perforation. Hearing grossly intact. NOSE: External nose normal with clear nasal drainage, mild congestion, THROAT: Mucous membranes moist, clear postnasal drainage NECK: Neck supple, non-tender wi
== END 2024-06-20 16:39 | disposition home or self-care (01) ==
PROVIDERS: Emergency Provider Nurse Practitioner Family
DX: O99.891 Other specified diseases and conditions complicating pregnancy (principal); Z3A.22 22 weeks gestation of pregnancy; H65.03 Acute serous otitis media, bilateral; Z79.82 Long term (current) use of aspirin
CPT/HCPCS: 99213; G0463

== ENCOUNTER 2024-07-25 09:02 | Emergency (ER) | payer OTHER, SELFPAY ==
[2024-07-25 09:39] VITALS: BP 146/83; PULSE 110; RESP 16; TEMP 37.6; O2SAT 100
--- NOTE | 2024-07-25 10:00 | ED_ITS ---
HPI - URI/Sore Throat General Chief Complaint: Upper Respiratory Infection Stated Complaint: [place]/COUGH/VOMITING Time Seen by Provider: 07/25/24 09:45 Source: patient Mode of arrival: ambulatory Limitations: no limitations History of Present Illness HPI Narrative: 34-year-old female presents with complaint of nasal congestion, cough, sore throat, fatigue, body aches, chills for 2-3 days. Patient is approximately 27 weeks . Taking any [id number] medications to treat her symptoms. Has had low-grade fever. All systems reviewed and negative except as noted above. Related Data Home Medications Medication Instructions Recorded Confirmed aspirin 81 mg chewable tablet 81 mg PO DAILY 05/17/24 07/25/24 loratadine 5 mg/5 mL oral solution 5 ml PO ONCE 07/13/24 07/25/24 (Claritin) Allergies Allergy/AdvReac Type Severity Reaction Status Date / Time formaldehyde Allergy Intermediate Rash Verified 07/25/24 09:50 nickel Allergy Intermediate Rash Verified 07/25/24 09:50 Review of Systems Review of Systems: CONSTITUTIONAL: Reports fever, chills, or sweats. EYES: Denies visual changes, redness, or discharge. ENT: Reports rhinorrhea, congestion, sore throat. Denies otalgia. CARDIOVASCULAR: Denies chest pain, palpitations, or edema. RESPIRATORY: Reports cough. Denies dyspnea. GASTROINTESTINAL: Denies abdominal pain, nausea, vomiting, or diarrhea. GENITOURINARY: Denies dysuria or hematuria. SKIN: Denies rash or itching. MUSCULOSKELETAL: Denies back pain, joint pain, or myalgia. NEUROLOGIC: Denies headache, numbness, or weakness. PSYCHIATRIC: Denies anxiety or depression. All other systems reviewed are negative, except as documented in HPI. [facility] Past Medical History Medical History Anxiety Encounter for removal of skin lesion Headache, migraine Surgical History Surgical History H/O nasal septoplasty 2019 Family History Family History Grandparent Diabetes mellitus Grandparent Dementia Grandparent Heart disease Grandparent Family history of cancer Grandparent Carcinoma of colon Father Hypertension Grandparent Leukemia Glaucoma Mother Retinal disease Social History Social History Smoking status: Never smoker Alcohol intake: current Alcohol use details: minimal Substance use: never Substance use type: does not use Lack of Transportation: No Lack of Food: Never True Current Housing: Decline to Answer Concerned About Future Housing: Decline to Answer Difficulty Paying Gas/Electric Bills: Decline to Answer Difficulty Paying for Meds: Decline to Answer Currently Unemployed: Decline to Answer Education: Decline to Answer Difficulty w/ Childcare or Family Care: Decline to Answer Living arrangements: with family 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 There is no relevant family history pertinent to the presenting complaint. Exam Narrative: GENERAL: This is a well-nourished, well-developed patient, in no apparent distress. HEAD: normocephalic, atraumatic. EYES: PERRL. Sclera clear/white. Vision is grossly intact. EARS: External ears normal, auditory canals clear and without drainage, TMs normal without perforation. Hearing grossly intact. NOSE: External nose normal with mild congestion, clear nasal drainage THROAT: Mucous membranes moist, mild erythema postnasal drainage NECK: Neck supple, non-tender without lymphadenopathy, masses or thyromegaly. CARDIOVASCULAR: Regular rate and rhythm without murmurs, gallops, or rubs. RESPIRATORY: Clear to auscultation. Breath sounds equal bilaterally. No wheezes, rales, or rhonchi. SKIN: warm, Dry, intact with no suspicious lesions or rash, good texture and turgor. NEURO: awake, alert, and oriented to person, place and time. There were no obvious focal neurologic abnormalities. EXTREMITIES: No joint tenderness, effusion, or edema noted. Course Course Level of Care: Express Care Visit Vital Signs Vital signs: Vital Signs Temperature 37.6 C H 07/25/24 09:39 Pulse Rate 110 H 07/25/24 09:39 Respiratory Rate 16 07/25/24 09:39 Blood Pressure 146/83 H 07/25/24 09:39 Pulse Oximetry 100 07/25/24 09:39 Oxygen Delivery Room Air 07/25/24 09:39 Temperature 37.6 C H 07/25/24 09:39 Pulse Rate 110 H 07/25/24 09:39 Respiratory Rate 16 07/25/24 09:39 Blood Pressure 146/83 H 07/25/24 09:39 Pulse Oximetry 100 07/25/24 09:39 Oxygen Delivery Room Air 07/25/24 09:39 Reviewed MDM - URI/Sore Throat MDM Narrative Medical decision making narrative: Positive influenza A. Discuss results with patient. Discussed medications are safe to take when . Patient is well-appearing, nontoxic. Patient is aware of diagnosis, understands and agrees to treatment plan. Anticipatory guidance given. Patient agrees to follow-up as directed and is aware of reasons to seek care at the emergency department. Portions of this record may have been created with voice recognition software Differential Diagnosis Differential diagnosis: Likely upper respiratory infection, sinusitis, viral infection, influenza and pharyngitis Discharge Plan Discharge Clinical Impression: Influenza A Patient Disposition: Home, Self-Care Condition: Stable Instructions: Influenza (ED) Additional Instructions: You were positive for influenza A, Influenza is a virus and symptoms may last 10-14 days. Take [id number] medications to treat her symptoms such as Flonase, Tylenol, Robitussin. These medications are safe with . Drink at least 64 oz of water a day. Follow-up with your primary care physician as needed. Prescriptions: No Action fluticasone propionate [Flonase Allergy Relief] 50 mcg/actuation spray,susp ension 1 spray intranasal BID Qty: 16 0RF Rx Instructions: administer into each nostril loratadine [Claritin] 5 mg/5 mL solution 5 ml PO ONCE aspirin 81 mg tablet,chewable 81 mg PO DAILY prenat.vits,zaki,nam-cptv-rqkkg Tablet 1 tablet PO DAILY 90 Days Qty: 90 3RF Follow-up/Referrals: Sade Flores MD [Primary Care Provider] - Time of Disposition: 09:58
[2024-07-25 10:21] LABS: EDINFLUASCREEN Positive (Negative); EDINFLUBSCREEN Negative (Negative); EDSTREPNEGPOS1 Negative (Negative)
== END 2024-07-25 10:00 | disposition home or self-care (01) ==
PROVIDERS: Emergency Provider Nurse Practitioner Family; PCP Obstetrics & Gynecology
DX: O99.512 Diseases of the respiratory system complicating pregnancy, second trimester (principal); Z3A.27 27 weeks gestation of pregnancy; J10.1 Influenza due to other identified influenza virus with other respiratory manifestations; Z79.82 Long term (current) use of aspirin
CPT/HCPCS: 87081; 87804; 87880; 99213; G0463

== ENCOUNTER 2024-08-02 08:58 | Observation (INO) | payer OTHER, SELFPAY ==
[2024-08-02] VITALS (9 sets, daily range): BP systolic 128–132; BP diastolic 72–80; PULSE 90–107; RESP 18; O2SAT 97–99
--- NOTE | ~2024-08-02 | XR_ITS ---
Clinical Indication: Shortness of breath PA and lateral views of the chest: Comparison: None Findings: The lungs are clear, without evidence of focal consolidation or pleural effusion. Cardiome diastinal silhouette is within normal limits. Bones and soft tissues are unremarkable. Impression: Normal chest. Reviewed, dictated and finalized at [facility]. [employer]GER Impression: Normal chest.
--- NOTE | 2024-08-02 08:58 | OBADM ---
This patient, Alicia Ochoa, admitted to the OB room OB Post 113 for observation. Patient/family oriented to hospital policies and general routines including ID bracelet, bed and alarms, visiting hours, pain management, procedures, bathroom and other care routines, personal items, smoking policy, room service/diet, and visiting hours. Patient/Family are encouraged to report perceived risks to care and to ask questions if they do not understand what they are told or what they should do.
--- NOTE | 2024-08-02 09:28 | PC.NURSE ---
pt report feeling over all crummy since 07/23/24. Pt states she had body aches, chills and fever. Pt went to urgent care on 07/25/24 and tested positive for influenze A. Pt states she continues to have nausea, cough and states she feels like she cant get a full breath. Pt concerned that her belly is smaller than normal and is concerned about baby. Pt does feel baby movement.
[2024-08-02] MEDS: IPRATROPIUM 0.5 MG/ALBUTEROL SULFATE 2.5 MG AMPUL.NEB 3 ML INHALATION (10:00)
[2024-08-02] MEDS: DEXTROSE 5%/LACTATED RINGERS 1,000 ML 999 ML XX (10:21)
--- NOTE | 2024-08-02 10:27 | PC.NURSE ---
pt does not feel she needs the zofran and pepcid at this time. Pt states she wants to wait and see how she feels after the bolus.
[2024-08-02 10:31] LABS: Basophils Percent Auto 0.3 % (0.2-1.2); Eosinophils Percent Auto 0.2 % (0-4.4); Hemoglobin 13.3 g/dL (12.0-15.0); Immature Granulocyte Absolute 0.11 K/mm3 (0.00-0.031); Immature Granulocyte Percent A 0.9 % (0-0.5); Lymphocytes Absolute Auto 0.86 K/mm3 (0.9-3.2); Lymphocytes Percent Auto 7.2 % (18.3-44.2); Mean Corpuscular Volume 91.6 fl (80-100); Mean Platelet Volume 9.9 fl (7.4-10.4); Monocytes Absolute Auto 0.6 K/mm3 (0.1-0.6); Monocytes Percent Auto 4.9 % (2.6-8.5); Neutrophils Absolute Auto 10.4 K/mm3 (1.3-6.7); Neutrophils Percent Auto 86.5 % (45.5-73.1); Platelet Count Result 145 k/mm3 (150-375); Red Blood Count 4.15 M/mm3 (4.2-5.4); Red Cell Distribution Width 12.7 % (11.5-14.5)
[2024-08-02 10:41] LABS: Alanine Aminotransferase 30 U/L (6-35); Alkaline Phosphatase 98 U/L (38-126); Anion Gap 6 mmol/L (4-12); Aspartate Amino Transferase 27 U/L (14-36); Bilirubin,Total 0.9 mg/dL (0.2-1.3); Blood Urea Nitrogen 5 mg/dL (7-17); Carbon Dioxide 22 mmol/L (22-30); Chloride 107 mmol/L (98-107); Estimated Glomerular Filt Rate > 60; Glucose 103 mg/dL (65-110); Magnesium 1.9 mg/dL (1.6-2.3); Potassium 3.7 mmol/L (3.4-5.0); Sodium 135 mmol/L (137-145)
[2024-08-02] MEDS: ONDANSETRON INJ 4 MG/2 ML VIAL IV PUSH (11:06)
[2024-08-02] MEDS: DEXTROSE 5%/LACTATED RINGERS 1,000 ML 125 ML IV CONT (11:35)
--- NOTE | 2024-08-02 12:01 | PC.NURSE ---
Dr. Flores updated with labs, chest xray and pt condition. Pt states she is feeling better since she had the breathing treatment. Pt okay with going home. Dr. Flores okay with pt discharging.
--- NOTE | 2024-08-02 12:42 | PM.OBTRLD ---
OB - Triage/Final Diagnosis Visit Information Comments/Additional reasons for admission: I have assessed the risk for this patient, Alicia Ochoa, and determined that she would benefit from observation care. Evaluation Laboratory results: Laboratory Tests 08/02/24 09:45 WBC 12.0 H RBC 4.15 L Hgb 13.3 Hct 38.0 MCV 91.6 MCH 32.0 MCHC 35.0 RDW 12.7 Plt Count 145 L MPV 9.9 Immature Gran % (Auto) 0.9 H Neut % (Auto) 86.5 H Lymph % (Auto) 7.2 L [place] % (Auto) 4.9 Eos % (Auto) 0.2 Baso % (Auto) 0.3 Lymph # (Auto) 0.86 L [place] # (Auto) 0.6 Eos # (Auto) 0.0 Baso # (Auto) 0.0 Abs Immat Gran (auto) 0.11 H Absolute Neuts (auto) 10.4 H Absolute Nucleated RBC 0.000 Nucleated RBC % 0.0 Sodium 135 L Potassium 3.7 Chloride 107 Carbon Dioxide 22 Anion Gap 6 BUN 5 L Creatinine 0.30 L Estim Creat Clear Calc Not Reportable Estimated GFR > 60 Glucose 103 Calcium 9.0 Magnesium 1.9 Total Bilirubin 0.9 AST 27 ALT 30 Alkaline Phosphatase 98 Total Protein 8.0 Albumin 4.0 Vital signs: Vital Signs - 24 hr 08/02/24 09:20 08/02/24 09:25 08/02/24 09:28 Pulse Rate 104 H Respiratory Rate Blood Pressure 132/77 Blood Pressure [Right Arm] Pulse Oximetry 97 99 Oxygen Delivery 08/02/24 09:30 08/02/24 09:35 08/02/24 09:40 Pulse Rate 96 Respiratory Rate Blood Pressure 128/72 Blood Pressure [Right Arm] Pulse Oximetry 98 98 97 Oxygen Delivery 08/02/24 09:45 08/02/24 10:00 08/02/24 10:10 Pulse Rate 90 96 94 Respiratory Rate 18 18 Blood Pressure 129/80 Blood Pressure [Right Arm] Pulse Oximetry 98 Oxygen Delivery 08/02/24 09:28 08/02/24 10:40 08/02/24 10:00 Pulse Rate 93 Respiratory Rate Blood Pressure Blood Pressure [Right Arm] 129/80 Pulse Oximetry Oxygen Delivery Room Air Room Air Final Diagnosis (1) Cough: Code(s): R05.9 - Cough, unspecified Status: Acute (2) Nausea and vomiting: Code(s): R11.2 - Nausea with vomiting, unspecified Status: Acute
== END 2024-08-02 12:29 | disposition home or self-care (01) ==
PROVIDERS: Admitting Provider Obstetrics & Gynecology; Visit Provider Obstetrics & Gynecology
DX: O99.891 Other specified diseases and conditions complicating pregnancy (principal); R05.9 Cough, unspecified; O21.9 Vomiting of pregnancy, unspecified; Z3A.29 29 weeks gestation of pregnancy
CPT/HCPCS: 36415; 59025; 71046; 80053; 83735; 85025; 94640; 96374; G0378; G0379; J2405; J7121

== ENCOUNTER 2024-08-17 09:45 | Outpatient (CLI) | payer OTHER, SELFPAY ==
[2024-08-17 11:00] LABS: Basophils Percent Auto 0.2 % (0.2-1.2); Eosinophils Absolute Auto 0.1 K/mm3 (0-0.3); Eosinophils Percent Auto 0.5 % (0-4.4); Hematocrit 39.6 % (37.0-47.0); Hemoglobin 13.3 g/dL (12.0-15.0); Immature Granulocyte Absolute 0.21 K/mm3 (0.00-0.031); Immature Granulocyte Percent A 1.3 % (0-0.5); Lymphocytes Absolute Auto 1.32 K/mm3 (0.9-3.2); Lymphocytes Percent Auto 8.5 % (18.3-44.2); Mean Corpuscular HGB Conc 33.6 g/dl (32-36); Mean Corpuscular Volume 95.4 fl (80-100); Monocytes Absolute Auto 0.6 K/mm3 (0.1-0.6); Monocytes Percent Auto 3.7 % (2.6-8.5); Neutrophils Absolute Auto 13.4 K/mm3 (1.3-6.7); Neutrophils Percent Auto 85.8 % (45.5-73.1); Platelet Count Result 211 k/mm3 (150-375); Red Blood Count 4.15 M/mm3 (4.2-5.4); Red Cell Distribution Width 13.1 % (11.5-14.5); White Blood Count 15.6 K/mm3 (4.5-10.0)
[2024-08-17 11:09] LABS: Glucose 1 Hour PP 50gm Dose 110 mg/dL
[2024-08-17 12:35] LABS: HIV 1/2 Ab P24 Ag Result Negative (Negative)
[2024-08-17 14:09] LABS: Rapid Plasma Reagin Non-Reactive (NonReactive)
== END 2024-08-17 09:46 | disposition home or self-care (01) ==
LOC: ANHLAB 09:46
PROVIDERS: PCP Family Medicine; Visit Provider Obstetrics & Gynecology
DX: Z34.90 Encounter for supervision of normal pregnancy, unspecified, unspecified trimester (principal); Z3A.00 Weeks of gestation of pregnancy not specified
CPT/HCPCS: 36415; 82947; 85025; 86592; 86703; G0432

== ENCOUNTER 2024-09-14 14:44 | Outpatient (CLI) | payer OTHER, SELFPAY | END 2024-09-14 14:45 | disposition home or self-care (01) | LOC: ANHGOSHLAB 14:45 | PROVIDERS: PCP Family Medicine; Visit Provider Obstetrics & Gynecology | DX: R10.9 Unspecified abdominal pain (principal) | CPT/HCPCS: 87086 ==

== ENCOUNTER 2024-09-28 12:59 | Outpatient (CLI) | payer OTHER, SELFPAY ==
[2024-09-28 13:48] VITALS: BP 128/83; PULSE 90
[2024-09-28 14:20] LABS: OBXCEM ROM Plus Negative (Negative)
--- OUTSIDE RECORDS SUMMARY | 2024-09-28 14:53 | XMS_ITS | Encounter Summary ---
Author Organization [facility] Address [address] [place] [address] Care Team Providers Care Moving Worker Name Role Phone Unknown, Provider Primary Care Provider Unavaila ble Reason for Referral * (Routine) - Open Specialty Diagnoses / Procedures Referred By Contac t Referred To Contact Diagnoses Encounter for ultrasound to assess growth (HCC) 36 weeks gestation of (HCC) Amniotic fluid index borderline low Procedures SONOGRAM - COMPLETE Sade Flores MD [address] [place] [address] Referral ID Status Reason Start Date Expiration Date Visits Re quested Visits Authorized [id number] Open 09/20/2024 09/20/2025 1 1 GER RESTAURANT * (Routine) - Open Specialty Diagnoses / Procedures Referred By Contac t Referred To Contact Diagnoses Encounter for ultrasound to assess growth (HCC) 36 weeks gestation of (HCC) Amniotic fluid index borderline low Procedures SONOGRAM - COMPLETE Sade Flores MD [address] [place] [address] Referral ID Status Reason Start Date Expiration Date Visits Re quested Visits Authorized [id number] Open 09/20/2024 09/20/2025 1 1 GER RESTAURANT Reason for Visit * Reason Comments Ultrasound Encounter Details Date Type Department Care Team (Latest Contact Info) Description 09/26/2024 3:15 PM MANAGER RESTAURANT - 09/26/2024 11:59 PM MANAGER RESTAURANT Hospital Encounter [facility] [address] [place] [phone] Javier Simpson MD [address] [facility] [address] [place] [address] Discharge Disposition: Home or Self Care Social History Tobacco Use Types Packs/Day Years Used Date Smoking Tobacco: Never Smokeless Tobacco: Never Alcohol Use Standard Drinks/Week Comments Yes 0 (1 standard drink = 0.6 oz pur e alcohol) 2 drinks per month Estimated Date of Delivery Comme nts Yes 10/18/2024 Based on last me nstrual period of 01/12/2024 Sex and Gender Information Value Date Recorded Sex Assigned at Not on file Gender Identity Not on file Sexual Orientation Not on file documented as of this encounter Medications at Time of Discharge Medication Sig Dispensed Refills Start Date End Date cetirizine (ZYRTEC) 10 MG chew tablet Take 10 mg by mouth once daily hyoscyamine 0.125 MG tabletIndications:Genera lized abdominal pain,Bloating,Fatigue associated with anemia Take 1 tablet by mouth every 6 hours as needed for Spasms 60 tablet 2 05/06/2018 triamcinolone acetonide (KENALOG) 0.1 % ointmentIndications:Rash Apply to affected areas on face twice daily as needed. 30 days supply. 15 g 1 01/14/2018 documented as of this encounter Plan of Treatment Upcoming Encounters Date Type Department Care Team (Late st Contact Info) Description 10/03/2024 3:15 PM MANAGER RESTAURANT Hospital Encounter [facility] [address] [place] [address] 10/10/2024 3:15 PM MANAGER RESTAURANT Hospital Encounter [facility] [address] [place] [address] 10/17/2024 3:15 PM MANAGER RESTAURANT Appointment [facility] [address] [place] [phone] documented as of this encounter Goals Goal Patient Goal Type Associated Problems Recent Progress Patient-Stated? Author Medication Management General On track( 018 2:56 PM CDT) Jimena Jaramillo RN Note: Expected end date: ongoing Interventions: Take all medications as prescribed Let your doctor know right away about any changes in your medications Make sure to request a refill of your medication at least one week prior to your last dose documented as of this encounter Procedures Procedure Name Priority Date/Time Associated Diagnosis Comments SONOGRAM - COMPLETE Routine 09/26/2024 3 :25 PM MANAGER RESTAURANT Encounter for ultrasound to assess growth (HCC) 36 weeks gestation of (HCC) Amniotic fluid index borderline low documented in this encounter Results * SONOGRAM - COMPLETE (09/26/2024 3:25 PM MANAGER RESTAURANT) Linked Results Indication ======== Small for gestational age fetus on outside ultrasound - normal growth on 09/19/24 Subjectively low amniotic fluid Incomplete anatomy survey History of oligohydramnios in G1 History ====== OB History ? 2. Para 1 Maternal Assessment Physical Exam ??Height 191 cm, 6 ft 3 in. Weight 91 kg, 200 lb. Initial weight 75 kg, 166 lb. BMI 25.00 kg/m?. Initial BMI 20.75 kg/m?. Weight gain 15 ? kg, 34 lb Method ====== Transabdominal ultrasound. View: Sufficient ========= [place] . Number of fetuses: 1 Dating ====== ? Date ?Details ? Gest. age ? NESTOR LMP ?01/12/2024 ? 36 w + 6 d ?10/18/2024 Stated NESTOR ? 36 w + 6 d ?10/18/2024 Assigned dating based on the LMP, selected on 08/29/2024 ?36 w + 6 d ? 10/18/2024 General Evaluation Cardiac activity present. FHR 153 bpm. Presentation: cephalic Placenta: Placental site: anterior Amniotic fluid: Amount of AF: subjectively low. MVP 3.5 cm. ORLANDO 9.4 cm. Q1 3.5 cm, Q2 1.8 cm, Q3 3.3 cm, Q4 0.9 cm. one 2 x 3 cm pocket visualized Anatomy The following structures appear normal: Abdomen ?Stomach. Bladder. Impression ========= Single, live, intrauterine at 36w 6d Amniotic fluid volume: 9.4 cm - subjectively low, there is a 2 x 3 cm pocket Follow-up ======== Follow up ultrasound in 1 week for serial ORLANDO checks / BPP due to subjectively low fluid and history of oligohydramnios Coding ====== Procedures ? 64762: US Uterus Limited TriPlay PACS Anatomical Region Laterality Modality Other 09/26/2024 3:25 PM MANAGER RESTAURANT Sade Flores MD [facility] ORDERABLES documented in this encounter Visit Diagnoses Diagnosis SGA (small for gestational age) (HCC)- Primary Wqrwo-dsn-lhgio without mention of malnutrition, unspecified (weight) Encounter for ultrasound to assess growth (HCC) 36 weeks gestation of (HCC) state, incidental Amniotic fluid index borderline low Nonspecific abnormal finding in amniotic fluid SGA (small for gestational age) ([facility])- Primary Hivkx-nfa-sqisg without mention of malnutrition, unspecified (weight) Encounter for ultrasound to assess growth ([facility]) 37 weeks gestation of ([facility]) state, incidental Amniotic fluid index borderline low Nonspecific abnormal finding in amniotic fluid SGA (small for gestational age) ([facility])- Primary Hkbss-vzi-gohkm without mention of malnutrition, unspecified (weight) 38 weeks gestation of ([facility]) state, incidental Encounter for ultrasound to assess growth ([facility]) Amniotic fluid index borderline low Nonspecific abnormal finding in amniotic fluid documented in this encounter Care Teams Moving Worker Relationship Specialty Start Date End Date Unknown, Provider PCP - General 01/12/18 documented as of this encounter
--- OUTSIDE RECORDS SUMMARY | 2024-09-28 14:53 | XMS_ITS | Patient Health Summary ---
Author Organization [facility] Address [address] [facility] [place] [address] Care Team Providers Care Cold Food Packer Name Role Phone Unknown, Provider Primary Care Provider Unavaila ble Note from [facility],non-owned Affiliates and Associated Physician Practices is amultiple site organization consisting of ambulatory clinics and hospital sitesin [place], [place], [place] and [place]. This disclosure is being madepursuant to the Care Everywhere program and may not contain all information available regarding this patient. Last updated 18.[facility] Allergies * Formaldehyde(Unknown) * Nickel(Unknown) * Silicone(Eye Itching) Medications * Be aware that medications may not be up to date on this document. Alwaysverify current medications with the patient. * triamcinolone acetonide (KENALOG) 0.1 % ointment(Started 01/14/2018) Apply to affected areas on face twice daily as needed. 30 days supply. 1 refill remaining * cetirizine (ZYRTEC) 10 MG chew tablet Take 10 mg by mouth once daily * hyoscyamine 0.125 MG tablet(Started 05/06/2018) Take 1 tablet by mouth every 6 hours as needed for Spasms 2 refills remaining Active Problems Problem Noted Date Diagnosed Date Generalized abdominal pain 05/06/2018 Acne vulgaris 05/19/2017 Social History Tobacco Use Types Packs/Day Years [...] on file Sexual Orientation Not on file Last Filed Vital Signs Vital Sign Reading Time Taken Comments Blood Pressure 130/82 05/06/2018 2:56 PM CDT Pulse 75 05/06/2018 2:56 PM CDT Temperature 36.7 ??C (98.1 ??F) 05/06/2018 2:56 PM CD T Respiratory Rate 18 05/06/2018 2:56 PM CDT Oxygen Saturation 99% 05/06/2018 2:56 PM CDT Inhaled Oxygen Concentration - - Weight 69.9 kg (154 lb) 05/06/2018 2:56 PM CDT Height 182.9 cm (6') 05/06/2018 2:56 PM CDT Body Mass Index 20.89 05/06/2018 2:56 PM CDT Procedures * SONOGRAM - COMPLETE(Performed 09/26/2024) Performed for Encounter for ultrasound to assess growth ([facility]), 36 weeks gestation of ([facility]), Amniotic fluid index borderline low * SONOGRAM - COMPLETE(Performed 09/19/2024) Performed for SGA (small for gestational age) ([facility]), Encounter for ultrasound to assess growth ([facility]), 36 weeks gestation of ([facility]) * SONOGRAM - COMPLETE(Performed 08/29/2024) Performed for SGA (small for gestational age) ([facility]), Encounter for anatomic survey ([facility]), Encounter for ultrasound to assess growth ([facility]), 32 weeks gestation of ([facility]) * LAB MISC TEST(Performed 08/30/2018) * TISSUE TRANSGLUTAMINASE AB IGA(Performed 08/27/2018) * VITAMIN B12(Performed 08/27/2018) * FOLATE(Performed 08/27/2018) * TSH(Performed 08/27/2018) * T4 FREE(Performed 08/27/2018) * CBC W AUTO DIFFERENTIAL(Performed 08/27/2018) * IRON + TRANSFERRIN PANEL(Performed 08/27/2018) Performed for Generalized abdominal pain, Bloating, Fatigue associated with anemia * SKIN TEST PPD - POINT OF CARE(Performed 11/16/2017) Performed for PPD screening test * SKIN TEST PPD - POINT OF CARE(Performed 11/10/2017) Performed for PPD screening test * PAP IG LB CT+NG+TV RFLX HPV ASCU(Performed 06/11/2017) Performed for Well female exam with routine gynecological exam, Screening examination for venereal disease * SKIN TEST PPD - POINT OF CARE(Performed 04/09/2017) Performed for Screening examination for pulmonary tuberculosis Results * SONOGRAM - COMPLETE (09/26/2024 3:25 PM DRYWALL INSTALLER) Only the most recent of3 resultswithin the time period is included. Linked Results Indication ======== Small for gestational [...] Method ====== Transabdominal ultrasound. View: Sufficient ========= [place] . Number of fetuses: 1 Dating ====== [...] history of oligohydramnios Coding ====== Procedures ? 67596: US Uterus Limited Asurvest PACS Anatomical Region Laterality Modality Other 09/26/2024 3:25 PM DRYWALL INSTALLER Sade Flores MD [facility] ORDERABLES * LAB MISC TEST (08/30/2018) Blood BLOOD SPECIMEN / Unknown Erasmo Doherty MD LAB SEND OUT * TISSUE TRANSGLUTAMINASE AB IGA (08/27/2018 3:47 PM DRYWALL INSTALLER) TTG Antibody IgA <2 0 - 3 U/mL [facility] INSURANCE BILL Comment: ? Negative ?0 - ??3 ? Weak Positive ?? 4 - 10 ? Positive ? >10 ?. ?Tissue Transglutaminase (tTG) has been identified ?as the endomysial antigen. ??Studies have demonstr- ?ated that endomysial IgA antibodies have over 99% ?specificity for gluten sensitive enteropathy. 08/27/2018 3:47 PM DRYWALL INSTALLER 08/27/2018 Narrative Resulting Agency Comment [facility] [address] ??Formerly [facility] [phone] Erasmo Doherty MD LAB - SEROLOGY ORDER EDWIN [facility] INSURANCE BILL [address] [place] [address] * CBC WITH DIFFERENTIAL (08/27/2018 3:47 PM DRYWALL INSTALLER) WBC 5.5 3.4 - 10.8 x10E3/uL [facility] INSURANCE BILL RBC 4.64 3.77 - 5.28 x10E6/uL [facility] INSURANCE BILL Hemoglobin 12.5 11.1 - 15.9 g/dL [facility] INSURANCE BILL Hematocrit 36.8 34.0 - 46.6 % [facility] INSURANCE BILL MCV 79 79 - 97 fL [facility] INSURANCE BILL MCH 26.9 26.6 - 33.0 pg [facility] INSURANCE BILL MCHC 34.0 31.5 - 35.7 g/dL [facility] INSURANCE BILL RDW 14.8 12.3 - 15.4 % [facility] INSURANCE BILL Platelet Count 180 150 - 379 x10E3/uL [facility] INSURANCE BILL Granulocytes % 60 Not Estab. % [facility] INSURANCE BILL Lymphocytes % 32 Not Estab. % [facility] INSURANCE BILL Monocytes % 6 Not Estab. % [facility] INSURANCE BILL Eosinophils % 1 Not Estab. % [facility] INSURANCE BILL Basophils % 1 Not Estab. % [facility] INSURANCE BILL Immature Cells NOT NEEDED [facility] INSURANCE BILL Comment:Ancillary determined the test is not needed Granulocytes Absolute 3.3 1.4 - 7.0 x10E3/uL [facility] INSURANCE BILL Lymphocytes Absolute 1.8 0.7 - 3.1 x10E3/uL [facility] INSURANCE BILL Monocytes Absolute 0.3 0.1 - 0.9 x10E3/uL [facility] INSURANCE BILL Eosinophils Absolute 0.1 0.0 - 0.4 x10E3/uL [facility] INSURANCE BILL Basophils Absolute 0.0 0.0 - 0.2 x10E3/uL [facility] INSURANCE BILL Immature Granulocytes 0 Not Estab. % [facility] INSURANCE BILL Immature Granulocytes Absolute 0.0 0.0 - 0.1 x10E3/uL [facility] INSURANCE BILL nRBC NOT NEEDED [facility] INSURANCE BILL Comment:Ancillary determined the test is not needed Comment Hematology NOT NEEDED [facility] INSURANCE BILL Comment:Ancillary determined the test is not needed 08/27/2018 3:47 PM DRYWALL INSTALLER 08/27/2018 Narrative Resulting Agency Comment [facility] [address] [facility] ??Formerly [facility] [phone] Erasmo Doherty MD LAB - HEMATOLOGY ORD ERABLES [facility] INSURANCE BILL [address] [place] [address] * FOLATE (08/27/2018 3:47 PM DRYWALL INSTALLER) [facility] Folate 8.2 >3.0 ng/mL [facility] INSURANCE BILL Comment: A serum folate concentration of less than 3.1 ng/mL is considered to represent clinical deficiency. 08/27/2018 3:47 PM DRYWALL INSTALLER 08/27/2018 Narrative Resulting Agency Comment [facility] [address] ??[facility]ly [facility] [phone] Erasmo Doherty MD LAB - CHEMISTRY SHANNAN CABRERA [facility] INSURANCE BILL [address] [place] [address] * VITAMIN B12 (08/27/2018 3:47 PM DRYWALL INSTALLER) Vitamin B12 608 232 - 1,245 pg/mL [facility] INSURANCE BILL 08/27/2018 3:47 PM DRYWALL INSTALLER 08/27/2018 Narrative Resulting Agency Comment [facility] [address] ??[facility]ly [facility] [phone] Erasmo Doherty MD LAB - CHEMISTRY SHANNAN CABRERA Performing Organization Address City/[facility]/ZIP Co de Phone Number [facility] INSURANCE BILL [address] [place] [address] * TSH (08/27/2018 3:47 PM DRYWALL INSTALLER) TSH 1.370 0.450 - 4.500 uIU/mL [facility] INSURANCE BILL 08/27/2018 3:47 PM DRYWALL INSTALLER 08/27/2018 Narrative Resulting Agency Comment [facility] [address] ??[facility]ly [facility] [phone] Erasmo Doherty MD LAB - CHEMISTRY SHANNAN CABRERA [facility] INSURANCE BILL [address] [place] [address] * T4 FREE (08/27/2018 3:47 PM DRYWALL INSTALLER) T4 Free 1.31 0.82 - 1.77 ng/dL [facility] INSURANCE BILL 08/27/2018 3:47 PM DRYWALL INSTALLER 08/27/2018 Narrative Resulting Agency Comment [facility] [address] ??[facility]ly [facility] [phone] Erasmo Doherty MD LAB - CHEMISTRY SHANNAN CABRERA [facility] INSURANCE BILL [address] [place] [address] * IRON + TRANSFERRIN PANEL (08/27/2018 3:47 PM DRYWALL INSTALLER) Iron 92 27 - 159 ug/dL [facility] INSURANCE BILL Transferrin 328 200 - 370 mg/dL [facility] INSURANCE BILL Blood BLOOD SPECIMEN / Unknown 08/27/2018 3:47 PM DRYWALL INSTALLER 08/27/2018 Narrative Resulting Agency Comment [facility] [address] ??[facility]ly [facility] [phone] Erasmo Doherty MD LAB - CHEMISTRY SHANNAN CABRERA [facility] INSURANCE BILL [address] [place] [address] * SKIN TEST PPD - POINT OF CARE (11/16/2017) Only the most recent of3 resultswithin the time period is included. PPD 0 induration Other MISCELLANEOUS SAMPLE S / Unknown 11/16/2017 Inna Rivera ADJUSTER AND INSPECTOR-VENEER STOCK GRADER LAB - POINT O F CARE ORDERABLES * PAP IG LB CT+NG+TV RFLX HPV ASCU (06/11/2017 5:04 PM CDT) Diagnosis [facility] ACCOUNT BILL Comment:NEGATIVE FOR INTRAEP ITHELIAL LESION AND MALIGNANCY. Specimen Adequacy [facility] ACCOUNT BILL Comment: Satisfactory for evaluation. ??Endocervical and/or squamous metaplastic cells (endocervical component) are present. Clinician Provided ICD10 [facility] ACCOUNT BILL Comment: Z01.419 Z11.3 Performed by [facility] ACCOUNT BILL Comment:Connie Neal chnologist (ASCP) Comment . [facility] ACCOUNT BILL Note [facility] ACCOUNT BILL Comment: The Pap smear is a screening test designed to aid in the detection of premalignant and malignant conditions of the uterine cervix. ??It is not a diagnostic procedure and should not be used as the sole means of detecting cervical cancer. ??Both false-positive and false-negative reports do occur. ? . IGLBP CPT Code Automation [facility] ACCOUNT BILL Comment: This liquid based ThinPrep(R) pap test was screened with the use of an image guided system. Note [facility] ACCOUNT BILL Comment: The HPV DNA reflex criteria were not met with this specimen result therefore, no HPV testing was performed. ? . Chlamydia trachomatis BLAYNE Negative Negative [facility] ACCOUNT BILL GC BLAYNE Negative Negative [facility] ACCOUNT BILL Trichomonas vaginalis by BLAYNE Negative Negative [facility] ACCOUNT BILL PART OF UTERINE CERVIX / Unknown 06/11/2017 5:04 PM CDT 06/11/2017 Narrative [facility] ACCOUNT BILL - 06/16/2017 11:15 AM CDT Source.............Cervix;Endocervix LMP / Prev Treat...[id number] No. of containers..01 ThinPrep Vial Resulting Agency Comment [facility] [address] [facility] [place] [phone] Marlyn Sam MD LAB - PATHOLOGY/CYTO LOGY ORDERABLES [facility] ACCOUNT BILL [address] [place] [address] Care Teams Cold Food Packer Relationship Specialty Start Date End Date Unknown, Provider PCP - General 01/12/18
--- OUTSIDE RECORDS SUMMARY | 2024-09-28 14:53 | XMS_ITS | Referral Summary ---
Author Organization [facility] Address [address] [facility] [place] [address] Care Team Providers Care Paper Finisher Name Role Phone Unknown, Provider Primary Care Provider Unavaila ble Source Comments [facility],non-owned Affiliates and Associated Physician Practices is amultiple site organization consisting of ambulatory clinics and hospital sitesin [place], [place], [place] and [place]. This disclosure is being madepursuant to the Care Everywhere program and may not contain all information available regarding this patient. Last updated 18.[facility] Encounters Date Type Department Care Team Description 09/26/2024 3:15 PM METALLOGRAPHY TEACHER - 09/26/2024 11:59 PM METALLOGRAPHY TEACHER Hospital Encounter [facility] [address] [place] [address] Javier Simpson MD Discharge Disposition: Home or Self Care 09/19/2024 11:15 AM METALLOGRAPHY TEACHER - 09/19/2024 11:59 PM METALLOGRAPHY TEACHER Hospital Encounter [facility] [address] [place] [address] Head, Hollie Gibbs MD Discharge Disposition: Home or Self Care 08/29/2024 7:30 AM METALLOGRAPHY TEACHER - 08/29/2024 11:59 PM METALLOGRAPHY TEACHER Hospital Encounter [facility] [address] [place] [address] Mohini, Delphine A, MD Forte, Corenthian J, MD Discharge Disposition: Home or Self Care from Last 3 Months Allergies Active Allergy Reactions Criticality Noted Date Comments Formaldehyde Unknown 08/22/2024 Nickel Unknown 08/22/2024 Silicone Eye Itching 04/09/2017 Eye swelling, eye pain Medications * Be aware that medications may not be up to date on this document. Alwaysverify current medications with the patient. Medication Sig Dispensed Refills Start Date End Date Status triamcinolone acetonide (KENALOG) 0.1 % ointmentIndications: Rash Apply to affected areas on face twice daily as needed. 30 days supply. 15 g 1 01/14/2018 Active cetirizine (ZYRTEC) 10 MG chew tablet Take 10 mg by mouth once daily Active hyoscyamine 0.125 MG tabletIndications:Ge neralized abdominal pain,Bloating,Fatigu e associated with anemia Take 1 tablet by mouth every 6 hours as needed for Spasms 60 tablet 2 05/06/2018 Active Active Problems Problem Noted Date Diagnosed Date Generalized abdominal pain 05/06/2018 Acne vulgaris 05/19/2017 Estimated Date of Delivery Comme nts Yes 10/18/2024 Based on last me nstrual period of 01/12/2024 Social History Tobacco Use Types Packs/Day Years [...] Mass Index 20.89 05/06/2018 2:56 PM CDT Plan of Treatment Upcoming Encounters Date Type Department Care Team (Late st Contact Info) Description 10/03/2024 3:15 PM METALLOGRAPHY TEACHER Hospital Encounter [facility] [address] [place] [address] 10/10/2024 3:15 PM METALLOGRAPHY TEACHER Hospital Encounter [facility] [address] [place] [address] 10/17/2024 3:15 PM METALLOGRAPHY TEACHER Appointment [facility] [address] [place] [address] Goals Goal Patient Goal Type Associated Problems Recent Progress Patient-Stated? Author Medication Management General On track( 018 2:56 PM CDT) Jimena Jaramillo, RN Note: Expected end date: ongoing Interventions: Take all medications as prescribed Let your doctor know right away about any changes in your medications Make sure to request a refill of your medication at least one week prior to your last dose Procedures Procedure Name Priority Date/Time Associated Diagnosis Comments SONOGRAM - COMPLETE Routine 09/26/2024 3:25 PM METALLOGRAPHY TEACHER Encounter for ultrasound to assess growth (HCC) 36 weeks gestation of (HCC) Amniotic fluid index borderline low SONOGRAM - COMPLETE Routine 09/19/2024 11:20 AM METALLOGRAPHY TEACHER SGA (small for gestational age) (HCC) Encounter for ultrasound to assess growth (HCC) 36 weeks gestation of (HCC) SONOGRAM - COMPLETE Routine 08/29/2024 7:40 AM METALLOGRAPHY TEACHER SGA (small for gestational age) (HCC) Encounter for anatomic survey ([facility]) Encounter for ultrasound to assess growth (HCC) 32 weeks gestation of (HCC) PAP IG LB CT+NG+TV RFLX HPV ASCU Routine 06/11/2017 5:04 PM CDT Well female exam with routine gynecological exam Screening examination for venereal disease from Last 3 Months or Most Recently Relevant to Health Maintenance Results * SONOGRAM - COMPLETE (09/26/2024 3:25 PM METALLOGRAPHY TEACHER) Only the most recent of3 resultswithin the [...] history of oligohydramnios Coding ====== Procedures ? 73711: US Uterus Limited Tehchnosolutions PACS Anatomical Region Laterality Modality Other 09/26/2024 3:25 PM METALLOGRAPHY TEACHER Sade Flores MD [facility] ORDERABLES * PAP IG LB CT+NG+TV RFLX [...] 11:15 AM CDT Source.............Cervix;Endocervix LMP / Prev Treat...[id number] No. of containers..01 ThinPrep Vial Resulting Agency Comment [facility] [address] [facility] ??[place] [phone] Marlyn Sam MD LAB - PATHOLOGY/CYTO LOGY ORDERABLES [facility] ACCOUNT BILL [address] [place] [address] from Last 3 Months or Most Recently Relevant to Health Maintenance Administered Medications Care Teams Paper Finisher Relationship Specialty Start Date End Date Unknown, Provider PCP - General 01/12/18
--- OUTSIDE RECORDS SUMMARY | 2024-09-28 14:53 | XMS_ITS | Clinical Summary ---
Author Organization [facility] Address [address] [place] [address] Care Team Providers Care Bus Or Truck Garage Mechanic Name Role Phone Unknown, Provider Primary Care Provider Unavaila ble Source Comments [facility],non-owned Affiliates and Associated Physician Practices is amultiple site organization consisting of ambulatory clinics and hospital sitesin [place], [place], [place] and [place]. This disclosure is being madepursuant to the Care Everywhere program and may not contain all information available regarding this patient. Last updated 18.[facility] Paddle8 Allergies Active Allergy Reactions Criticality Noted Date [...] Comme nts Yes 10/18/2024 Based on last ny nstrual period of 01/12/2024 Encounters Date Type Department Care Team Description 09/26/2024 3:15 PM ELECTRONICS SUPERVISOR - 09/26/2024 11:59 PM ELECTRONICS SUPERVISOR Hospital Encounter [facility] [address] [place] [phone] Javier Simpson MD Discharge Disposition: Home or Self Care 09/19/2024 11:15 AM ELECTRONICS SUPERVISOR - 09/19/2024 11:59 PM ELECTRONICS SUPERVISOR Hospital Encounter [facility] [address] [place] [address] Head, Hollie Gibbs MD Discharge Disposition: Home or Self Care 08/29/2024 7:30 AM ELECTRONICS SUPERVISOR - 08/29/2024 11:59 PM ELECTRONICS SUPERVISOR Hospital Encounter [facility] [address] [place] [address] eDlphine Rajan MD Forte, Lacey Gibbons MD Discharge Disposition: Home or Self Care from Last 3 Months Family History Medical History Relation Name Comments Glaucoma Father Hyperlipidemia Father Diabetes - Type 2 Maternal Grandmother Cancer - Breast Paternal Aunt CAD (Coronary Artery Disease) Paternal Grandfather Relation Name Status Comments Father Maternal Grandmother Mother retinal problem Paternal Aunt Paternal Grandfather Social History Tobacco Use Types Packs/Day Years [...] st Contact Info) Description 10/03/2024 3:15 PM ELECTRONICS SUPERVISOR Hospital Encounter [facility] [address] [place] [phone] 10/10/2024 3:15 PM ELECTRONICS SUPERVISOR Hospital Encounter [facility] [address] [place] [address] 10/17/2024 3:15 PM ELECTRONICS SUPERVISOR Appointment [facility] [address] [place] [address] Health Maintenance Due Date Last Done Comments HIV SCREENING 02/27/2007 HEPATITIS C SCREENING 02/23/2010 DTAP/TDAP/TD VACCINES (1 - Tdap) 02/27/2011 HEPATITIS B VACCINE (1 of 3 - 19+ 3-dose series) 02/27/2011 PAP SMEAR 03/28/2023 03/28/2020, 06/11/2017 COVID-19 VACCINE ( season) 2024 07/01/2023, 05/21/2022, 07/21/2021, Additional history exists INFLUENZA VACCINE (#1) 2024 , 05/21/2022, 06/13/2021, Additional history exists OB-ONE HOUR GLUCOSE 07/12/2024 OB-TDAP CURRENT 07/19/2024 OB-RHOGAM INJECTION 07/26/2024 DEPRESSION SCREENING 08/31/2024 OB-GROUP B STREP SCREEN 09/13/2024 ZOSTER VACCINE (1 of 2) 02/27/2042 HIB VACCINE Aged Out No longer eligi ble based on patient's age to complete this topic HPV VACCINE Aged Out No longer eligi ble based on patient's age to complete this topic MENINGOCOCCAL (Group B) VACCINE Aged Out No longer eligible based on patient's age to complete this topic MENINGOCOCCAL VACCINE Aged Out No dallin sandi eligible based on patient's age to complete this topic PNEUMOCOCCAL VACCINE Aged Out No long er eligible based on patient's age to complete this topic Respiratory Syncytial Virus (RSV) Vaccine Pt: or over 60 yrs (No Doses Required) Completed Goals Goal Patient Goal Type Associated Problems [...] SONOGRAM - COMPLETE Routine 09/26/2024 3:25 PM ELECTRONICS SUPERVISOR Encounter for ultrasound to assess growth (HCC) 36 weeks gestation of (HCC) Amniotic fluid index borderline low SONOGRAM - COMPLETE Routine 09/19/2024 11:20 AM ELECTRONICS SUPERVISOR SGA (small for gestational age) (HCC) Encounter for ultrasound to assess growth (HCC) 36 weeks gestation of (HCC) SONOGRAM - COMPLETE Routine 08/29/2024 7:40 AM ELECTRONICS SUPERVISOR SGA (small for gestational age) (HCC) Encounter for anatomic survey (HCC) Encounter for ultrasound to assess growth (HCC) 32 weeks gestation of (HCC) PAP IG LB CT+NG+TV RFLX HPV ASCU Routine 06/11/2017 5:04 PM CDT Well female exam with routine gynecological exam Screening examination for venereal disease from Last 3 Months or Most Recently Relevant to Health Maintenance Results * SONOGRAM - COMPLETE (09/26/2024 3:25 PM ELECTRONICS SUPERVISOR) Only the most recent of3 resultswithin the [...] history of oligohydramnios Coding ====== Procedures ? [id number]: US Uterus Limited [facility] [employer] PACS Anatomical Region Laterality Modality Other 09/26/2024 3:25 PM ELECTRONICS SUPERVISOR Sade Flores MD [facility] ORDERABLES * PAP IG LB CT+NG+TV RFLX HPV ASCU (06/11/2017 5:04 PM CDT) Diagnosis [facility] ACCOUNT BILL Comment:NEGATIVE FOR INTRAEP ITHELIAL LESION AND MALIGNANCY. Specimen Adequacy [facility] ACCOUNT BILL Comment: Satisfactory for evaluation. ??Endocervical and/or squamous metaplastic cells (endocervical component) are present. Clinician Provided ICD10 [facility] ACCOUNT BILL Comment: Z01.419 Z11.3 Performed by [facility] ACCOUNT BILL Comment:Blane Soto Cytocolette chnologist [facility] Comment . [facility] ACCOUNT BILL Note [facility] [...] 11:15 AM CDT Source.............Cervix;Endocervix LMP / Prev Treat...THA=[id number] No. of containers..01 ThinPrep Vial Resulting Agency Comment [facility] [address] [place] [address] ??Fede Booth [id number] Marlyn Sam MD LAB - PATHOLOGY/CYTO LOGY ORDERABLES [facility] ACCOUNT BILL [address] [place] [address] from Last 3 Months or Most Recently Relevant to Health Maintenance Care Teams Bus Or Truck Garage Mechanic Relationship Specialty Start Date End Date Unknown, Provider PCP - General 01/12/18
--- OUTSIDE RECORDS SUMMARY | 2024-09-28 14:53 | XMS_ITS | Data Portability ---
Author Organization [place] [id number] Address [address] [place] [address] Care Team Providers Care Vertical Borer Name Role Phone LEIGH ANN KATZ Primary Care Provider Assessment No assessment recorded. Plan of Treatment Reminders Order Date Submit Date Provider Last Modified By Organization Details Last Modified Time Details Appointments None record ed. Lab None record ed. Referral None record ed. Procedures None record ed. Surgeries None record ed. Imaging None record ed. Medication Orders None record ed. Patient TargetsNo targets recorded. Patient Instructions Encounter Date Encounter Id Patient Instructions Last Modified By Organization Details Last Modified Time 11/16/2020 [id number] 1) Discussed difference between heritable and acquired connective tissue disorders. 2) Discussed lack of specific features to have diagnosis of Marfan, Salma-Danlos syndromes, etc. 3) May want to see rheumatology to rule out undifferentiated connective tissue disorder given the likely errant diagnosis in the past 4) Discussed any potential concerns for joint issues are addressed personally by better postural mechanics, activity, and may want to consult physical therapy to address particular areas of concerns (weakness in the upper back). 5) Discussed any concern for a child would be self-limited to joint and biomechanics. Best healthy practices apply such as good hydration and nutrition; activity; and good sleep. 6) Would not suggest any alterations in management for these non-specific concerns 7) Couple's concern about vaginal tearing should be addressed by OB 8) Discussed if so desired, couple can look at pre-conception genetic counseling for a myriad of genetic disorders. 9) Return to clinic as needed I spent 60 minutes with the patient, review of the medical chart, review of literature or databases as appropriate, and coordination of care. [email or web address] Not available 11/16/2020 09:28:34 Reason for Referral None Reported. Problems Name Problem SNOMED Code Status Onset Date Resolution Date Notes Provider Name and Address Organization Details Recorded Time Postural dizziness 502615255 Active 021 Barry Santiago MD [address], [place], [address], [place] - [facility] 1 09:19:38 Shoulder pain 45988939 Active 021 Barry Santiago MD [address], [address], [place], [address], [place] [facility] [place] 09:19:38 Problem Notes None recorded. Procedures Surgical History Date Name Laterality Status Provider Name and Address Organization Details Recorded Time Fall Risk Assessment ADULT completed Job Ellis LPN [facility] 11/16/2020 08:14:00 Imaging Results None recorded. Procedure Notes None recorded. Medical Equipment None Reported. Allergies No known drug allergies Medications Name Sig Start Date Stop Date Status Note LastModified by Organization Details LastModified Time trazodone 50 mg tablet 11/16 completed Not Available Not Available Not Available Claritin 10 mg tablet Take 1 tablet every day by oral route. active Not Available Not Available No t Available pimecrolimu s 1 % topical cream 11/16 completed Not Available Not Available Not Available doxycycline monohydrate 100 mg capsule 11/16 completed Not Available Not Available Not Available triamcinolo ne acetonide 0.1 % topical ointment PRN active Not Available Not Available Not Available fluticasone propionate 50 mcg/actuati on nasal spray,suspe nsion PRN active Not Available Not Available Not Available multivitami n active Not Available Not Available Not Available drospirenon e 3 mg-ethinyl estradiol 0.02 mg tablet 11/16 completed Not Available Not Available Not Available Lo Loestrin Fe 1 mg-10 mcg (24)/10 mcg (2) tablet 11/16 completed Not Available Not Available Not Available Lotemax 0.5 % eye gel drops PRN active Not Available Not Available Not Available Flucelvax Quad (PF) 60 mcg (15 mcg x 4)/0.5 mL IM syringe [facility] 11/16 completed Not Available Not Available Not Available Vitals Date Recorded Heart rate Provider Name an d Address Organization Details Last Updated DateTime 11/16/2020 76 /min Job Ellis LPN [facility] 11/16/2020 08:12:36 Date Recorded Body height Provider Name an d Address Organization Details Last Updated DateTime 11/16/2020 185.9 cm Job Ellis LPN [facility] 11/16/2020 08:12:43 Date Recorded Body mass index (BMI) Body weight Provider Name and Address Organization Details Last Updated DateTime 11/16/2020 21.5 kg/m2 83246 g Job Ellis LPN [facility] 11/16/2020 08:12:48 Date Recorded Systolic blood pressure Diastolic blood pressure Provider Name and Address Organization Details Last Updated DateTime 11/16/2020 138 mm[Hg] 82 mm[Hg] Job Ellis LPN [facility] 11/16/2020 08:12:32 Social History Question Answer Notes LastModified by Organizat ion Details LastModified Time Tobacco Smoking Status Never Smoker Job Ellis LPN null, [facility] 11/16/2020 08:09:15 Do You Or Have You Ever Used E-cigarettes Or Vape? Never Used Electronic Cigarettes Information not available 11/16/2020 Physical Therapy No Informat ion not available 11/16/2020 Speech Therapy No Informatio n not available 11/16/2020 Occupational Therapy No Information not available 11/16/2020 Special Diet Vegetarian Information not available 11/16/2020 Have You Had A Fever And/or Symptoms Of A Lower Respiratory Illness (cough, Difficulty Breathing, Etc)? No Information not available 11/16/2020 Have You Had Any Of These Symptoms: Chills ,Headache, Fatigue, Muscle Or Body Aches , Sore Throat, New Loss Of Taste Or Smell, Nausea Or Vomiting, Or Diarrhea? No Information not available 11/16/2020 How Much Tobacco Do You Smoke? No Information not available 11/16/2020 Sex: Female Functional Status None recorded. Mental Status None recorded. Family History Nothing Reported. Medical History No medical history recorded. Gynecological HistoryNo gynecological history recorded. Obstetrics History GPAL:G 0 P 0 0 0 0 Past Encounters Encounter ID Performer Location Encounter Start Date Encounter Closed Date Diagnosis/Indication Diagnosis SNOMED-CT Code Diagnosis ICD10 Code Diagnosis Note [id number] Barry Santiago MD IND_PED_D GH_DOC [address] [facility] [address] [place] [address] 11/16/2020 07:57:35 11/16/2020 08:57:07 Shoulder pain 71881732 M25.519 Postural dizziness 81467 7008 R42 Health Concerns Section Related Observation LastModified by Organization Detai ls LastModified Time None Recorded Concern Status LastModified by Organization Details LastModified Time None Recorded Advance Directives Directive None Recorded Payers Encounter Date Sequence Insurance Name Policy Number Policy Sarkar Covered Member ID Sarkar Member ID Guarantor Name 11/16/2020 1 [facility] [id number] Alicia Don [id number] Alicia Ochoa Notes Date Note Type Note Provider Name and Address Organization Details Recorded Time 11/16/2020 text/html Alicia is a 30yo with a previous diagnosis of undifferentiated connective tissue disorder who is seen to discuss concerns around family planning. She is accompanied by her .Alicia reports being seen by [facility] due to tall stature, myopia, and joint hypermobility. She underwent an echocardiogram which was reported as normal. Alicia reports she is followed by ophthalmology for her moderate to severe myopia but has no other ocular concerns such as retinal detachment or dislocated lenses. She reports no family history of Marfan syndrome but many relatives of tall stature. Apparently, she was not diagnosed with Marfan but felt to have a connective tissue disorder not specified which was translated into undifferentiated connective tissue disorder . Alicia reports no concerns for an autoimmune disease, no joint welling or redness, and has not seen a life skills educator. Alicia does report intermittent joint pain primarily affecting her shoulders and occasionally hands. 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 She does try to keep physically active. Alicia and her spouse are seen due to wanting to start a family and concerned if there is a disorder Alicia has, what is the chance of passing this down. Barry Santiago MD [address], [address], [place], [address], [place] [facility] [place] 11/16/2020 09:28:46 OBGyn Episode No OBEpisode recorded.
--- OUTSIDE RECORDS SUMMARY | 2024-09-28 14:53 | XMS_ITS | Clinical Summary ---
Author Organization [facility] Address [address] [place] [address] Care Team Providers Care Marketing Ambassador Name Role Phone No, Physician Primary Care Provider [phone] Allergies No known active allergies Medications multivitamin-Ca- iron-minerals tablet Take 1 tablet by mouth daily Active loratadine (CLARITIN) 10 mg tablet Take 10 mg by mouth daily Active Active Problems Problem Noted Date Diagnosed Date Refractive error 09/03/2020 Assessment & Plan (09/03/2020 4:19 PM AFTER SCHOOL TEACHER): New SRx PRN, released new CLRx. 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 Advised urgent evaluation with any new onset. Family History Medical History Relation Name Comments Glaucoma Father Retinal detachment Mother Partial R D Glaucoma Paternal Grandfather Cataracts Paternal Grandmother Glaucoma Paternal Grandmother Macular degeneration Neg Hx Strabismus Neg Hx Relation Name Status Comments Father Mother Paternal Grandfather Paternal Grandmother Social History Tobacco Use Types Packs/Day Years Used Date Smoking Tobacco: Never Smokeless Tobacco: Never Personal Safety Answer Date Recorded Getting School Help Needed Not on file 10/30 Comments Unknown Sex and Gender Information Value Date Recorded Sex Assigned at Not on file Legal Sex Female 3:14 PM AFTER SCHOOL TEACHER Gender Identity Not on file Sexual Orientation Not on file Obstetrics History Last Filed Vital Signs Vital Sign Reading Time Taken Comments Blood Pressure 123/81 11/06/2017 3:07 PM AFTER SCHOOL TEACHER Pulse 81 11/06/2017 3:07 PM AFTER SCHOOL TEACHER Temperature - - Respiratory Rate - - Oxygen Saturation - - Inhaled Oxygen Concentration - - Weight 71.7 kg (158 lb 0.1 oz) 11/06/2017 3:07 P M AFTER SCHOOL TEACHER Height - - Body Mass Index - - Plan of Treatment Health Maintenance Due Date Last Done Comments Cervical Cancer Screening 1992 Depression Screening 1992 Hepatitis C Screening 1992 Varicella Vaccines (1 of 2 - 13+ 2-dose series) 02/27/2005 Hepatitis B Screening 02/27/2010 Regular Well Visit/Exam 18-64 02/27/2010 Covid-19 Vaccine ( season) 2024 05/21/2022, 07/21/2021, 11/08/2020, Additional history exists Influenza Vaccine (#1) 2024 , 06/13/2021, 05/15/2020, Additional history exists DTaP/Tdap/Td Vaccine (2 - Td or Tdap) 11/15/2031 11/14/2021 HPV Vaccines Aged Out No longer eligi ble based on patient's age to complete this topic Pneumococcal vaccine <65 Aged Out No longer eligible based on patient's age to complete this topic Insurance [employer] COVENTRY HMO/POS Care Teams Marketing Ambassador Relationship Specialty Start Date End Date No, Physician PCP - General 08/22/20
--- OUTSIDE RECORDS SUMMARY | 2024-09-28 14:53 | XMS_ITS | Clinical Summary ---
Author Organization [facility] Address [address] [place] [address] Care Team Providers Care Nail Making Machine Setter Name Role Phone Mckenna Copeland MD Primary Care Provider + Allergies Active Allergy Reactions Criticality Noted Date Comments Formaldehyde Rash,Swelling Low 04/26/2019 Nickel Rash Low 04/26/2019 Silicones Swelling Low 07/29/2018 Medications loratadine (CLARITIN) 10 mg tabletIndication s:Chronic sinusitis, unspecified location Take 10 mg by mouth daily. Active multivit with calcium,iron,min (WOMEN'S MULTIPLE VITAMINS ORAL) Take 1 Tablet by mouth daily. Active fluticasone propionate (FLONASE) 50 mcg/spray [place], Suspension nasal inhalerIndicatio ns:Allergic rhinitis, unspecified seasonality, unspecified trigger Administer 2 Sprays in each nostril daily. 16 Gram 2 0 Active Active Problems Problem Noted Date Diagnosed Date Migraine without aura and wi thout status migrainosus, not intractable 03/28/2020 Allergic contact dermatitis due to metals 2018 Overview (01/06/2019): nickel, formaldehyde, formaldehyde resin Chronic allergic rhinitis due to animal hair and dander 12/23/2018 Allergic rhinitis due to house dust mite 019 Chronic seasonal allergic rhinitis due to pollen 12/23/2018 Allergic rhinitis due to mold 12/23/2018 Allergic contact dermatitis due to cosmetics Generalized anxiety disorder 07/29/2018 Immunizations Immunization Administration Dates Next Due INFLUENZA VACCINE QUADRIVALE NT 6 MOS UP CELL DERIVED IM 07/29/2018 INFLUENZA VACCINE QUADRIVALE NT 6 MOS UP CELL DERIVED PF IM 05/15/2020,08/28/2019 Family History Medical History Relation Name Comments Glaucoma Father Hypertension Father Cancer Maternal Grandfather Heart Disease Maternal Grandfather Arthritis-rheumatoid Maternal Grandmother Diabetes Maternal Grandmother Leukemia Maternal Grandmother No Known Problems Mother Cancer Paternal Grandfather Glaucoma Paternal Grandmother Hypertension Paternal Grandmother Allergic Rhinitis Sister Relation Name Status Comments Father Alive Maternal Grandfather Maternal Grandmother Alive Mother Alive Paternal Grandfather Paternal Grandmother Alive Sister Alive Social History Tobacco Use Types Packs/Day Years Used Date Smoking Tobacco: Never Smokeless Tobacco: Never Alcohol Use Standard Drinks/Week Comments Yes 0 (1 standard drink = 0.6 oz pur e alcohol) social - weekends Comments No Sex and Gender Information Value Date Recorded Sex Assigned at Not on file Legal Sex Female 9:37 AM GOLF COURSE LABORER Gender Identity Not on file Sexual Orientation Not on file Last Filed Vital Signs Vital Sign Reading Time Taken Comments Blood Pressure 129/83 01/04/2021 4:45 PM CDT Pulse 73 01/04/2021 4:45 PM CDT Temperature 36.7 ??C (98.1 ??F) 01/04/2021 4:45 PM CD T Respiratory Rate 18 07/09/2020 1:02 PM GOLF COURSE LABORER Oxygen Saturation 100% 01/04/2021 4:45 PM CDT Inhaled Oxygen Concentration - - Weight 76.2 kg (168 lb) 01/04/2021 4:45 PM CDT Height 182.9 cm (6') 01/04/2021 4:45 PM CDT Body Mass Index 22.78 01/04/2021 4:45 PM CDT Plan of Treatment Health Maintenance Due Date Last Done Comments DTAP/TDAP/TD VACCINES (1 - Tdap) 02/27/2011 HEPATITIS B VACCINES (1 of 3 - 19+ 3-dose series) 02/27/2011 CERVICAL CANCER SCREENING 03/28/2023 03/28/2020, 07/2019 INFLUENZA VACCINE (#1) 2024 0, 08/28/2019, 07/29/2018 Preventative Visit- Commercial 08/31/2024 06/18/2020, 03/28/2020, 11/08/2018, Additional history exists HPV VACCINES Aged Out No longer eligi ble based on patient's age to complete this topic Procedures Procedure Name Priority Date/Time Associated Diagnosis Comments CERV/VAG CYTO SCREEN PAP RLFX HPV Routine 03/28/2020 12:47 PM CDT Well woman exam with routine gynecological exam from Last 3 Months or Most Recently Relevant to Health Maintenance Results * CERV/VAG CYTO SCREEN PAP RLFX HPV (03/28/2020 12:47 PM CDT) CLINICAL INFORMATION Information not provided 03/31/2020 9:15 AM CDT [facility] LAST MENSTRUAL PERIOD INFORMATION NOT PROVIDED 03/31/2020 9:15 AM CDT [facility] PREV PAP: INFORMATION NOT PROVIDED 03/31/2020 9:15 AM CDT [facility] PREV BX: INFORMATION NOT PROVIDED 03/31/2020 9:15 AM CDT [facility] SOURCE Endocervix 03/31/2020 9:15 AM CDT [facility] ADEQUACY: SEE COMMENT 03/31/2020 9:15 AM CDT [facility] Comment: Satisfactory for evaluation. Endocervical/transformation zone component present. Age and/or menstrual status not provided PAP INTERP Negative for intraepithelial lesion or malignancy. 03/31/2020 9:15 AM CDT [facility] COMMENT This Pap test has been evaluated with computer assisted technology. 03/31/2020 9:15 AM CDT [facility] INTERNAL GRINDER TENDER: SEE COMMENT 2019 9:15 AM CDT [email or web address] Comment: DHARA CT(ASCP) CT screening location: [place] [address] [place] [address] EXPLANATORY NOTE SEE COMMENT 020 9:15 AM CDT [facility] Comment: EXPLANATORY NOTE: The Pap is a screening test for cervical cancer. It is not a diagnostic test and is subject to false negative and false positive results. It is most reliable when a satisfactory sample, regularly obtained, is submitted with relevant clinical findings and history, and when the Pap result is evaluated along with historic and current clinical information. Genital SWAB OF ENDOCERVIX / Unknown Collection / Unknown 03/28/2020 12:47 PM CDT 03/28/2020 12:47 PM CDT Narrative [facility] - 03/31/2020 9:15 AM CDT Performing Organization Information: ?Site ID: [id number] ?Name: [facility] ?Address: [facility] [address] [place] [address] ?Director: Sofia Munson Maite Manriquez HOUSEHOLD PERSONAL ASSISTANT PATHOLOGY/CYTOLOGY ORDERABLES Final Result [facility] [phone] from Last 3 Months or Most Recently Relevant to Health Maintenance Insurance [facility] [employer] [place] [phone] [place] [address] CHOICE Care Teams Nail Making Machine Setter Relationship Specialty Start Date End Date Mckenna Copeland MD [address] [place] [address] PCP - General Internal Medicine 07/29/18
--- OUTSIDE RECORDS SUMMARY | 2024-09-28 14:53 | XMS_ITS | Referral Summary ---
Author Organization [facility] Address [address] [place] [phone] Care Team Providers Care Sales Order Coordinator Name Role Phone No, Physician Primary Care Provider [phone] Allergies No known active allergies Medications multivitamin-Ca- iron-minerals tablet Take 1 tablet by mouth daily Active loratadine (CLARITIN) 10 mg tablet Take 10 mg by mouth daily Active Active Problems Problem Noted Date Diagnosed Date Refractive error 09/03/2020 Assessment & Plan (09/03/2020 4:19 PM STORE MANAGEMENT TRAINEE): New SRx PRN, released new CLRx. 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 Advised urgent evaluation with any new onset. Social History Tobacco Use Types Packs/Day Years Used Date Smoking Tobacco: Never Smokeless Tobacco: Never Personal Safety Answer Date Recorded Getting School Help Needed Not on file 10/30 Comments Unknown Sex and Gender Information Value Date Recorded Sex Assigned at Not on file Legal Sex Female 3:14 PM STORE MANAGEMENT TRAINEE Gender Identity Not on file Sexual Orientation Not on file Last Filed Vital Signs Vital Sign Reading Time Taken Comments Blood Pressure 123/81 11/06/2017 3:07 PM STORE MANAGEMENT TRAINEE Pulse 81 11/06/2017 3:07 PM STORE MANAGEMENT TRAINEE Temperature - - Respiratory Rate - - Oxygen Saturation - - Inhaled Oxygen Concentration - - Weight 71.7 kg (158 lb 0.1 oz) 11/06/2017 3:07 P M STORE MANAGEMENT TRAINEE Height - - Body Mass Index - - Plan of Treatment Not on file Insurance [employer] COVENTRY HMO/POS Care Teams Sales Order Coordinator Relationship Specialty Start Date End Date No, Physician PCP - General 08/22/20
== END 2024-09-28 14:05 | disposition home or self-care (01) ==
LOC: ANHOBOP 14:01 → ANHLDR 14:03
PROVIDERS: PCP Family Medicine; Visit Provider Obstetrics & Gynecology
DX: O41.8X90 Other specified disorders of amniotic fluid and membranes, unspecified trimester, not applicable or unspecified (principal); Z3A.00 Weeks of gestation of pregnancy not specified
CPT/HCPCS: 59025; 84112; 99199

== ENCOUNTER 2024-10-11 13:07 | Outpatient (CLI) | payer OTHER, SELFPAY ==
[2024-10-11 13:23] VITALS: BP 136/86; PULSE 80
[2024-10-11 13:24] VITALS: TEMP 36.5
[2024-10-11 13:29] VITALS: BP 128/79; PULSE 84
[2024-10-11 13:44] VITALS: BP 129/87; PULSE 84
[2024-10-11 13:57] VITALS: BP 129/87; PULSE 76
[2024-10-11 14:04] LABS: OBXCEM ROM Plus Negative (Negative)
--- OUTSIDE RECORDS SUMMARY | 2024-10-11 14:40 | XMS_ITS | Referral Summary ---
Author Organization [facility] Address [address] [place] [phone] Care Team Providers Care Checker Stocker Name Role Phone No, Physician Primary Care Provider [phone] Allergies No known active allergies Medications multivitamin-Ca- iron-minerals tablet Take 1 tablet by mouth daily Active loratadine (CLARITIN) 10 mg tablet Take 10 mg by mouth daily Active Active Problems Problem Noted Date Diagnosed Date Refractive error 09/03/2020 Assessment & Plan (09/03/2020 4:19 PM ANTITANK ASSAULT GUNNER): New SRx PRN, released new CLRx. OK to order PRN Dry eye syndrome of both eyes 09/03/2020 Assessment & Plan (09/03/2020 4:18 PM ANTITANK ASSAULT GUNNER): ATs PRN, consider changing to Oasys 1 day if continued issues Lattice degeneration of left retina 09/03/2020 Assessment & Plan (09/03/2020 4:19 PM ANTITANK ASSAULT GUNNER): No breaks noted 360, s/s of retinal [...] on file Legal Sex Female 3:14 PM ANTITANK ASSAULT GUNNER Gender Identity Not on file Sexual Orientation Not on file Last Filed Vital Signs Vital Sign Reading Time Taken Comments Blood Pressure 123/81 11/06/2017 3:07 PM ANTITANK ASSAULT GUNNER Pulse 81 11/06/2017 3:07 PM ANTITANK ASSAULT GUNNER Temperature - - Respiratory Rate - - Oxygen Saturation - - Inhaled Oxygen Concentration - - Weight 71.7 kg (158 lb 0.1 oz) 11/06/2017 3:07 P M ANTITANK ASSAULT GUNNER Height - - Body Mass Index - - Plan of Treatment Not on file Insurance [employer] COVENTRY HMO/POS Care Teams Checker Stocker Relationship Specialty Start Date End Date No, Physician PCP - General 08/22/20
--- OUTSIDE RECORDS SUMMARY | 2024-10-11 14:40 | XMS_ITS | Data Portability ---
Author Organization [place] [facility] [facility] [id number] Address [address] [place] [address] Care Team Providers Care Staff Radiation Therapist Name Role Phone LEIGH ANN KATZ Primary Care Provider [phone] Assessment No assessment recorded. Plan of Treatment [...] By Organization Details Last Modified Time 11/16/2020 [id number] 1) Discussed difference between heritable and acquired [...] Address Organization Details Recorded Time Postural dizziness [id number] Active 021 Barry Santiago MD [address], [place], [address], [place] - [facility] 1 09:19:38 Shoulder pain 71076039 Active 021 Barry Santiago MD [address], [address], [facility] [place], [address], [place] - [facility] [place] 09:19:38 Problem Notes None recorded. Procedures Surgical History Date Name Laterality Status Provider Name and Address Organization Details Recorded Time Fall Risk Assessment ADULT completed Job Ellis LPN [facility] 11/16/2020 08:14:00 Imaging Results None recorded. Procedure [...] x 4)/0.5 mL IM syringe PHARMACY ADMINISTE [facility] 11/16 completed Not Available Not Available Not Available Vitals Date Recorded Heart rate Body height Body mass index (BMI) Body weight Systolic blood pressure Diastolic blood pressure Provider Name and Address Organization Details Last Updated DateTime 76 /min 185.9 cm 21.5 kg/m2 95728 g 138 mm[Hg] 82 mm[Hg] Job Ellis LPN [facility] 08:12:32 Social History Question Answer Notes LastModified by Organizat ion Details LastModified Time Tobacco Smoking Status Never Smoker Job Ellis LPN null, [place] [facility] 11/16/2020 08:09:15 Do You Or Have You [...] SNOMED-CT Code Diagnosis ICD10 Code Diagnosis Note [id number] Barry Santiago MD IND_PED_D GH_DOC [address] [facility] [address] [place] [address] 11/16/2020 07:57:35 11/16/2020 08:57:07 Shoulder pain [id number] M25.519 Postural dizziness 49902 7008 R42 Health Concerns Section Related Observation LastModified by Organization Detai ls LastModified Time None Recorded Concern Status LastModified by Organization Details LastModified Time None Recorded Advance Directives Directive None Recorded Payers Encounter Date Sequence Insurance Name Policy Number Policy Sarkar Covered Member ID Sarkar Member ID Guarantor Name 11/16/2020 1 [facility] [id number] Alicia Ochoa [id number] Alicia Ochoa Notes Date Note Type Note Provider Name and Address Organization Details Recorded Time 11/16/2020 text/html Alicia is a 30yo with a previous diagnosis of undifferentiated connective tissue disorder who is seen to discuss concerns around family planning. She is accompanied by her .Alicia reports being seen by [facility] due to tall stature, myopia, and joint [...] or redness, and has not seen a leasing coordinator. Alicia does report intermittent joint pain primarily affecting her shoulders and occasionally hands. 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 She does try to keep physically active. Alicia and her spouse are seen due to wanting to start a family and concerned if there is a disorder Alicia has, what is the chance of passing this down. Barry Santiago MD [address], [address], [place], [address], [place] [facility] [facility] [place] 11/16/2020 09:28:46 OBGyn Episode No OBEpisode recorded.
--- OUTSIDE RECORDS SUMMARY | 2024-10-11 14:40 | XMS_ITS | Clinical Summary ---
Author Organization [facility] Address [address] [place] [address] Care Team Providers Care Media Reconciliation Specialist Name Role Phone Mckenna Copeland MD Primary [...] daily. Active fluticasone propionate (FLONASE) 50 mcg/spray [place], Suspension nasal inhalerIndicatio ns:Allergic rhinitis, unspecified seasonality, [...] on file Legal Sex Female 9:37 AM LOAN EXPEDITOR Gender Identity Not on file Sexual Orientation Not on file Last Filed Vital Signs Vital Sign Reading Time Taken Comments Blood Pressure 129/83 01/04/2021 4:45 PM CDT Pulse 73 01/04/2021 4:45 PM CDT Temperature 36.7 C (98.1 F) 01/04/2021 4:45 PM CDT Respiratory Rate 18 07/09/2020 1:02 PM LOAN EXPEDITOR Oxygen Saturation 100% 01/04/2021 4:45 PM CDT [...] 9:15 AM CDT [facility] POLICY ANALYST: SEE COMMENT 2019 9:15 AM CDT [facility] Comment: DHARA CT(ASCP) CT screening location: [place] [address] [place] [address] EXPLANATORY NOTE SEE COMMENT 020 9:15 AM CDT [facility] Comment: EXPLANATORY NOTE: The [...] 03/31/2020 9:15 AM CDT Performing Organization Information: Site ID: [facility] Address: [address] [place] [address] Director: Sofia Munson us Maite Manriquez PROSECUTING ATTORNEY PATHOLOGY/CYTOLOGY ORDERABLES Final Result [facility] [phone] from Last 3 Months or Most Recently Relevant to Health Maintenance Insurance [place] [id number] [facility] CHOICE Care Teams Media Reconciliation Specialist Relationship Specialty Start Date End Date Mckenna Copeland MD [address] [place] [phone] PCP - General Internal Medicine 07/29/18
--- OUTSIDE RECORDS SUMMARY | 2024-10-11 14:40 | XMS_ITS | Referral Summary ---
Author Organization [facility] Address [address] [place] [address] Care Team Providers Care Shotblaster Name Role Phone Unknown, Provider Primary Care Provider Unavaila ble Source Comments [facility],non-owned Affiliates and Associated Physician Practices is amultiple site organization consisting of ambulatory clinics and hospital sitesin [place], [place], [place] and [place]. This disclosure is being madepursuant to the Care Everywhere program and may not contain all information available regarding this patient. Last updated 18.[facility] Encounters Date Type Department Care Team Description 10/10/2024 3:12 PM VOCATIONAL TEACHER - 10/10/2024 11:59 PM VOCATIONAL TEACHER Hospital Encounter [facility] [address] [place] [phone] González, Hollie Gibbs MD Discharge Disposition: Home or Self Care 10/03/2024 3:15 PM VOCATIONAL TEACHER - 10/03/2024 11:59 PM VOCATIONAL TEACHER Hospital Encounter [facility] [address] [place] [phone] Delphine Rajan MD Grant, Jacqueline H, MD Discharge Disposition: Home or Self Care 09/26/2024 3:15 PM VOCATIONAL TEACHER - 09/26/2024 11:59 PM VOCATIONAL TEACHER Hospital Encounter [facility] [address] [place] [phone] Javier Simpson MD Discharge Disposition: Home or Self Care 09/19/2024 11:15 AM VOCATIONAL TEACHER - 09/19/2024 11:59 PM VOCATIONAL TEACHER Hospital Encounter [facility] [address] [place], [place] [phone] Hollie Claudio MD Discharge Disposition: Home or Self Care 08/29/2024 7:30 AM VOCATIONAL TEACHER - 08/29/2024 11:59 PM VOCATIONAL TEACHER Hospital Encounter [facility] [address] [place] [phone] Delphine Rajan MD Booker, Lacey Gibbons MD Discharge Disposition: Home or [...] 75 05/06/2018 2:56 PM CDT Temperature 36.7 C (98.1 F) 05/06/2018 2:56 PM CDT Respiratory Rate 18 05/06/2018 2:56 PM CDT Oxygen Saturation 99% 05/06/2018 2:56 PM CDT Inhaled Oxygen Concentration - - Weight 69.9 kg (154 lb) 05/06/2018 2:56 PM CDT Height 182.9 cm (6') 05/06/2018 2:56 PM CDT Body Mass Index 20.89 05/06/2018 2:56 PM CDT Plan of Treatment Not on file Goals Goal Patient Goal Type Associated Problems [...] Associated Diagnosis Comments SONOGRAM - COMPLETE Routine 10/10/2024 3 :14 PM VOCATIONAL TEACHER SGA (small for gestational age) (HCC) 38 weeks gestation of ([facility]) Amniotic fluid index borderline low BIOPHYSICAL PROFILE WO NST Routine 10/03/2024 3:20 PM VOCATIONAL TEACHER 37 weeks gestation of (HCC) Amniotic fluid index borderline low SONOGRAM - COMPLETE Routine 09/26/2024 3 :25 PM VOCATIONAL TEACHER Encounter for ultrasound to assess growth (HCC) 36 weeks gestation of ([facility]) Amniotic fluid index borderline low SONOGRAM - COMPLETE Routine 09/19/2024 1 1:20 AM VOCATIONAL TEACHER SGA (small for gestational age) ([facility]) Encounter for ultrasound to assess growth (HCC) 36 weeks gestation of ([facility]) SONOGRAM - COMPLETE Routine 08/29/2024 7 :40 AM VOCATIONAL TEACHER SGA (small for gestational age) ([facility]) Encounter for anatomic survey (HCC) Encounter for ultrasound to assess growth ([facility]) 32 weeks gestation of ([facility]) PAP IG LB CT+NG+TV RFLX HPV ASCU Routine 06/11/2017 5:04 PM CDT Well female exam with routine gynecological exam Screening examination for venereal disease from Last 3 Months or Most Recently Relevant to Health Maintenance Results * SONOGRAM - COMPLETE (10/10/2024 3:14 PM VOCATIONAL TEACHER) Only the most recent of4 resultswithin the time period is included. Linked Results Indication ======== Small for gestational age fetus on outside ultrasound - normal growth on 09/19/24 Subjectively low amniotic fluid Incomplete anatomy survey History of oligohydramnios in G1 History ====== OB History 2. Para 1 Maternal Assessment Physical Exam Height 191 cm, 6 ft 3 in. Weight 92 kg, 202 lb. Initial weight 75 kg, 166 lb. BMI 25.25 kg/m . Initial BMI 20.75 kg/m . Weight gain 16 kg, 36 lb Method ====== Transabdominal ultrasound examination. View: Sufficient ========= [place] . Number of fetuses: 1 Dating ====== Date Details Gest. age NESTOR LMP 01/12/2024 38 w + 6 d 10/18/2024 Stated NESTOR 38 w + 6 d 10/18/2024 Assigned dating based on the LMP, selected on 08/29/2024 38 w + 6 d 10/18/2024 General Evaluation Cardiac activity present. FHR 160 bpm. Presentation: cephalic Placenta: Placental site: anterior Amniotic Fluid Assessment === Amount of AF: normal MVP 3.5 cm. [place]O 11.8 cm. Q1 3.3 cm, Q2 3.2 cm, Q3 3.5 cm, Q4 1.8 cm Biophysical Profile 2: breathing movements 2: Gross body movements 2: tone 2: Amniotic fluid volume 04/07 Biophysical profile score Growth Overview Exam date GA BPD (mm) HC (mm) AC (mm) FL (mm) HL (mm) EFW (g) 08/29/2024 32w 6d 80.5 28% 305.3 42% 276 18% 63.2 33% 56.3 57% 1937 25% 09/19/2024 35w 6d 86.3 28% 324.1 38% 306.1 23% 69 33% 61 55% 2578 29% Anatomy The following structures appear normal: Abdomen Stomach. Kidneys. Bladder. Impression ========= Single, live, intrauterine at 38w 6d Amniotic fluid volume: normal 8 point Biophysical profile: Follow-up ======== Continue weekly 8 point biophysical profiles with ORLANDO until delivery IOL scheduled 10/17/24 Coding ====== Procedures [id number]: [place] Uterus Limited 67230: Biophysical Profile W/O NST [place] PACS Anatomical Region Laterality Modality Other 10/10/2024 3:14 PM VOCATIONAL TEACHER Sade Flores MD [facility] ORDERABLES * BIOPHYSICAL PROFILE WO NST (10/03/2024 3:20 PM VOCATIONAL TEACHER) Linked Results Indication ======== Small for gestational age fetus on outside ultrasound - normal growth on 09/19/24 Subjectively low amniotic fluid Incomplete anatomy survey History of oligohydramnios in G1 History ====== OB History 2. Para 1 Maternal Assessment Physical Exam Height 191 cm, 6 ft 3 in. Weight 91 kg, 200 lb. Initial weight 75 kg, 166 lb. BMI 25.00 kg/m . Initial BMI 20.75 kg/m . Weight gain 15 kg, 34 lb Method ====== Transabdominal ultrasound examination. View: Sufficient ========= [place] . Number of fetuses: 1 Dating ====== Date Details Gest. age NESTOR LMP 01/12/2024 37 w + 6 d 10/18/2024 Stated NESTOR 37 w + 6 d 10/18/2024 Assigned dating based on the LMP, selected on 08/29/2024 37 w + 6 d 10/18/2024 General Evaluation Cardiac activity present. FHR 144 bpm. Presentation: cephalic Placenta: Placental site: anterior Amniotic Fluid Assessment === Amount of AF: subjectively low MVP 3.0 cm. ORLANDO 8.6 cm. Q1 3.0 cm, Q2 1.6 cm, Q3 3.0 cm, Q4 1.1 cm Largest pocket of fluid measures 4.8 x 2.8 cm Biophysical Profile 2: breathing movements 2: Gross body movements 2: tone 2: Amniotic fluid volume 04/07 Biophysical profile score Growth Overview Exam date GA BPD (mm) HC (mm) AC (mm) FL (mm) HL (mm) EFW (g) 08/29/2024 32w 6d 80.5 28% 305.3 42% 276 18% 63.2 33% 56.3 57% 1937 25% 09/19/2024 35w 6d 86.3 28% 324.1 38% 306.1 23% 69 33% 61 55% 2578 29% Anatomy The following structures appear normal: Abdomen Stomach. Kidneys. Bladder. Impression ========= Single, live, intrauterine at 37w6d Amniotic fluid volume: subjectively low Biophysical profile: Follow-up ======== Continue weekly OR[place]O and BPP Coding ====== Procedures [id number]: [place] Uterus Limited 99932: Biophysical Profile W/O NST [facility] PACS Anatomical Region Laterality Modality Other 10/03/2024 3:20 PM VOCATIONAL TEACHER Delphine Rajan MD [facility] ORDERABLES * PAP IG LB CT+NG+TV RFLX HPV ASCU (06/11/2017 5:04 PM CDT) Diagnosis [facility] ACCOUNT BILL Comment:NEGATIVE FOR INTRAEP ITHELIAL LESION AND MALIGNANCY. Specimen Adequacy [facility] ACCOUNT BILL Comment: Satisfactory for evaluation. Endocervical and/or squamous metaplastic cells (endocervical component) are present. Clinician Provided ICD10 [facility] ACCOUNT BILL Comment: Z01.419 Z11.3 Performed by [facility] ACCOUNT BILL Comment:Connie Neal chnologist (ASCP) Comment . [facility] ACCOUNT BILL Note [facility] ACCOUNT BILL Comment: The Pap smear is a screening test designed to aid in the detection of premalignant and malignant conditions of the uterine cervix. It is not a diagnostic procedure and should not be used as the sole means of detecting cervical cancer. Both false-positive and false-negative reports do occur. . IGLBP CPT Code Automation [facility] ACCOUNT BILL Comment: This liquid based ThinPrep(R) pap test was screened with the use of an image guided system. Note [facility] ACCOUNT BILL Comment: The HPV DNA reflex criteria were not met with this specimen result therefore, no HPV testing was performed. . Chlamydia trachomatis BLAYNE Negative Negative [facility] ACCOUNT BILL GC BLAYNE Negative Negative [facility] ACCOUNT BILL Trichomonas vaginalis by BLAYNE Negative Negative [facility] ACCOUNT BILL PART OF UTERINE CERVIX / Unknown 06/11/2017 5:04 PM CDT 06/11/2017 Narrative [facility] ACCOUNT BILL - 06/16/2017 11:15 AM CDT Source.............Cervix;Endocervix LMP / Prev Treat...QZO=[id number] No. of containers..01 ThinPrep Vial Resulting Agency Comment [facility] [address] [id number] Marlyn Sam MD LAB - PATHOLOGY/CYTO LOGY ORDERABLES [facility] ACCOUNT BILL [address] [place] [address] from Last 3 Months or Most Recently Relevant to Health Maintenance Administered Medications Care Teams Shotblaster Relationship Specialty Start Date End Date Unknown, Provider PCP - General 01/12/18
--- OUTSIDE RECORDS SUMMARY | 2024-10-11 14:40 | XMS_ITS | Patient Health Summary ---
Author Organization [facility] Address [address] [place] [address] Care Team Providers Care Meteorology Professor Name Role Phone Unknown, Provider Primary Care Provider Unavaila ble Note from [facility],non-owned Affiliates and Associated Physician Practices is amultiple site organization consisting of ambulatory clinics and hospital sitesin [place], [place] and [place]. This disclosure is being madepursuant to the Care Everywhere program and may not contain all information available regarding this patient. Last updated 18.[facility] Allergies * Formaldehyde(Unknown) * Nickel(Unknown) * [...] Comme nts Yes 10/18/2024 Based on last ri nstrual period of 01/12/2024 Sex and Gender [...] PM CDT Procedures * SONOGRAM - COMPLETE(Performed 10/10/2024) Performed for SGA (small for gestational age) ([facility]), 38 weeks gestation of ([facility]), Amniotic fluid index borderline low * BIOPHYSICAL PROFILE WO NST(Performed 10/03/2024) Performed for 37 weeks gestation of ([facility]), Amniotic fluid index borderline low * SONOGRAM - COMPLETE(Performed 09/26/2024) Performed for Encounter for ultrasound to assess growth ([facility]), 36 weeks gestation of ([facility]), Amniotic fluid index borderline low * SONOGRAM - COMPLETE(Performed 09/19/2024) Performed for SGA (small for gestational age) ([facility]), Encounter for ultrasound to assess growth ([facility]), 36 weeks gestation of ([facility]) * SONOGRAM - COMPLETE(Performed 08/29/2024) Performed for SGA (small for gestational age) ([facility]), Encounter for anatomic survey ([facility]), Encounter for ultrasound to assess growth ([facility]), 32 weeks gestation of ([facility]) * LAB MISC TEST(Performed 08/30/2018) * TISSUE [...] pulmonary tuberculosis Results * SONOGRAM - COMPLETE (10/10/2024 3:14 PM READING TEACHER) Only the most recent of4 resultswithin [...] delivery IOL scheduled 10/17/24 Coding ====== Procedures [id number]: US Uterus Limited 09657: Biophysical Profile W/O NST [facility] [place] PACS Anatomical Region Laterality Modality Other 10/10/2024 3:14 PM READING TEACHER Sade Flores MD [facility] ORDERABLES * BIOPHYSICAL PROFILE WO NST (10/03/2024 3:20 PM READING TEACHER) Linked Results Indication ======== Small for [...] weekly [place] and BPP Coding ====== Procedures [id number]: US Uterus Limited 57129: Biophysical Profile W/O NST [place] PACS Anatomical Region Laterality Modality Other 10/03/2024 3:20 PM READING TEACHER Delphine Rajan MD [facility] ORDERABLES * LAB MISC TEST (08/30/2018) Blood BLOOD SPECIMEN / Unknown Erasmo Doherty MD LAB SEND OUT * TISSUE TRANSGLUTAMINASE AB IGA (08/27/2018 3:47 PM READING TEACHER) TTG Antibody IgA <2 0 - 3 U/mL [facility] INSURANCE BILL Comment: Negative 0 - 3 Weak Positive 4 - 10 Positive >10 . Tissue Transglutaminase (tTG) has been identified as the endomysial antigen. Studies have demonstr- ated that endomysial IgA antibodies have over 99% specificity for gluten sensitive enteropathy. 08/27/2018 3:47 PM READING TEACHER 08/27/2018 Narrative Resulting Agency Comment [facility] [place] [address] [facility] [id number] Erasmo Doherty MD LAB - SEROLOGY ORDER EDWIN [facility] INSURANCE BILL [address] [place] [address] * CBC WITH DIFFERENTIAL (08/27/2018 3:47 PM READING TEACHER) WBC 5.5 3.4 - 10.8 x10E3/uL [facility] [...] test is not needed 08/27/2018 3:47 PM READING TEACHER 08/27/2018 Narrative Resulting Agency Comment [facility] [place] [address] [facility] [phone] Erasmo Doherty MD LAB - HEMATOLOGY ORD ERABLES [facility] INSURANCE BILL [address] [place] [address] * FOLATE (08/27/2018 3:47 PM READING TEACHER) [facility] Signature Folate 8.2 >3.0 ng/mL [facility] INSURANCE BILL Comment: A serum folate concentration of less than 3.1 ng/mL is considered to represent clinical deficiency. 08/27/2018 3:47 PM READING TEACHER 08/27/2018 Narrative Resulting Agency Comment [facility] [place] [address] [facility] [phone] Erasmo Doherty MD LAB - CHEMISTRY SHANNAN CABRERA [facility] INSURANCE BILL [address] [place] [address] * VITAMIN B12 (08/27/2018 3:47 PM READING TEACHER) Vitamin B12 608 232 - 1,245 pg/mL [facility] INSURANCE BILL 08/27/2018 3:47 PM READING TEACHER 08/27/2018 Narrative Resulting Agency Comment [facility] [place] [address] [facility] [phone] Erasmo Doherty MD LAB - CHEMISTRY SHANNAN CABRERA Performing Organization Address City/[facility]/ZIP Co de Phone Number [facility] INSURANCE BILL [address] [place] [address] * TSH (08/27/2018 3:47 PM READING TEACHER) TSH 1.370 0.450 - 4.500 uIU/mL [facility] INSURANCE BILL 08/27/2018 3:47 PM READING TEACHER 08/27/2018 Narrative Resulting Agency Comment [facility] [place] [address] [facility] [phone] Erasmo Doherty MD LAB - CHEMISTRY SHANNAN CABRERA Performing Organization Address City/[facility]/ZIP Co de Phone Number [facility] INSURANCE BILL [address] [place] [address] * T4 FREE (08/27/2018 3:47 PM READING TEACHER) T4 Free 1.31 0.82 - 1.77 ng/dL [facility] INSURANCE BILL 08/27/2018 3:47 PM READING TEACHER 08/27/2018 Narrative Resulting Agency Comment [facility] [place] [address] [facility] [phone] Erasmo Doherty MD LAB - CHEMISTRY SHANNAN CABRERA [facility] INSURANCE BILL [address] [place] [address] * IRON + TRANSFERRIN PANEL (08/27/2018 3:47 PM READING TEACHER) Iron 92 27 - 159 ug/dL [facility] INSURANCE BILL Transferrin 328 200 - 370 mg/dL [facility] INSURANCE BILL Blood BLOOD SPECIMEN / Unknown 08/27/2018 3:47 PM READING TEACHER 08/27/2018 Narrative Resulting Agency Comment [facility] [place] [address] [facility] [phone] Erasmo Doherty MD LAB - CHEMISTRY SHANNAN CABRERA [facility] INSURANCE BILL [address] [place] [address] * SKIN TEST PPD - POINT OF CARE (11/16/2017) Only the most recent of3 resultswithin the time period is included. PPD 0 induration Other MISCELLANEOUS SAMPLE S / Unknown 11/16/2017 Inna Rivera PUMPER GAGER APPRENTICE-PULP ROLLER LAB - POINT O F CARE ORDERABLES [...] 11:15 AM CDT Source.............Cervix;Endocervix LMP / Prev Treat...[id number] No. of containers..01 ThinPrep Vial Resulting Agency Comment [facility] [address] [id number] Marlyn Sam MD LAB - PATHOLOGY/CYTO LOGY ORDERABLES [facility] ACCOUNT BILL [address] [place] [address] Care Teams Meteorology Professor Relationship Specialty Start Date End Date Unknown, Provider PCP - General 01/12/18
--- OUTSIDE RECORDS SUMMARY | 2024-10-11 14:40 | XMS_ITS | Encounter Summary ---
Author Organization [facility] Address [address] [facility] [place] [address] Care Team Providers Care Spline Rolling Machine Job Setter Name Role Phone Unknown, Provider Primary Care Provider Unavaila ble Reason for Referral * (Routine) - Open Specialty Diagnoses / Procedures Referred By Contac t Referred To Contact Diagnoses SGA (small for gestational age) (HCC) 38 weeks gestation of (HCC) Amniotic fluid index borderline low Procedures SONOGRAM - COMPLETE Sade Flores MD [address] [place] [address] Referral ID Status Reason Start Date Expiration Date Visits Re quested Visits Authorized [id number] Open 10/04/2024 10/04/2025 2 2 GER OF FINANCIAL PLANNING Reason for Visit * Reason Comments Ultrasound * (Routine) - Open Specialty Diagnoses / Procedures Referred By Contac t Referred To Contact Diagnoses SGA (small for gestational age) (HCC) 38 weeks gestation of (HCC) Amniotic fluid index borderline low Procedures SONOGRAM - COMPLETE Sade Flores MD [address] [place] [address] Referral ID Status Reason Start Date Expiration Date Visits Re quested Visits Authorized [id number] Open 10/04/2024 10/04/2025 2 2 Encounter Details Date Type Department Care Team (Latest Contact Info) Description 10/10/2024 3:12 PM MANAGER OF FINANCIAL PLANNING - 10/10/2024 11:59 PM MANAGER OF FINANCIAL PLANNING Hospital Encounter [facility] [address] [phone] Head, Hollie Gibbs MD [address] [facility] [address] [place] [address] Discharge Disposition: Home or Self Care Social [...] as of this encounter Plan of Treatment Not on file documented as of this encounter Goals Goal [...] - COMPLETE Routine 10/10/2024 3 :14 PM MANAGER OF FINANCIAL PLANNING SGA (small for gestational age) (HCC) 38 weeks gestation of (HCC) Amniotic fluid index borderline low documented in this encounter Results * SONOGRAM - COMPLETE (10/10/2024 3:14 PM MANAGER OF FINANCIAL PLANNING) Linked Results Indication ======== Small for gestational [...] delivery IOL scheduled 10/17/24 Coding ====== Procedures [id number]: US Uterus Limited 80807: Biophysical Profile W/O NST [place] PACS Anatomical Region Laterality Modality Other 10/10/2024 3:14 PM MANAGER OF FINANCIAL PLANNING Sade Flores MD [facility] ORDERABLES documented in this encounter Visit Diagnoses Diagnosis SGA (small for gestational age) (HCC)- Primary Bpukw-szv-uqkyv without mention of malnutrition, unspecified (weight) 38 weeks gestation of (HCC) state, incidental Encounter for ultrasound to assess growth ([facility]) Amniotic fluid index borderline low Nonspecific abnormal finding in amniotic fluid documented in this encounter Care Teams Spline Rolling Machine Job Setter Relationship Specialty Start Date End Date Unknown, Provider PCP - General 01/12/18 documented as of this encounter
--- OUTSIDE RECORDS SUMMARY | 2024-10-11 14:40 | XMS_ITS | Clinical Summary ---
Author Organization [facility] Address [address] [place] [phone] Care Team Providers Care Crm Technical Lead Name Role Phone No, Physician Primary Care Provider [phone] Allergies No known active allergies Medications multivitamin-Ca- iron-minerals tablet Take 1 tablet by mouth daily Active loratadine (CLARITIN) 10 mg tablet Take 10 mg by mouth daily Active Active Problems Problem Noted Date Diagnosed Date Refractive error 09/03/2020 Assessment & Plan (09/03/2020 4:19 PM CASH GRAIN GROWER): New SRx PRN, released new CLRx. 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 Assessment & Plan (09/03/2020 4:19 PM CASH GRAIN GROWER): No breaks noted 360, s/s of retinal [...] on file Legal Sex Female 3:14 PM CASH GRAIN GROWER Gender Identity Not on file Sexual Orientation Not on file Obstetrics History Last Filed Vital Signs Vital Sign Reading Time Taken Comments Blood Pressure 123/81 11/06/2017 3:07 PM CASH GRAIN GROWER Pulse 81 11/06/2017 3:07 PM CASH GRAIN GROWER Temperature - - Respiratory Rate - - Oxygen Saturation - - Inhaled Oxygen Concentration - - Weight 71.7 kg (158 lb 0.1 oz) 11/06/2017 3:07 P M CASH GRAIN GROWER Height - - Body Mass Index - [...] topic Insurance [employer] COVENTRY HMO/POS Care Teams Crm Technical Lead Relationship Specialty Start Date End Date No, Physician PCP - General 08/22/20
--- OUTSIDE RECORDS SUMMARY | 2024-10-11 14:40 | XMS_ITS | Clinical Summary ---
Author Organization [facility] Address [address] [place] [address] Care Team Providers Care Electric Container Tester Name Role Phone Unknown, Provider Primary Care Provider Unavaila ble Source Comments [facility],non-owned Affiliates and Associated Physician Practices is amultiple site organization consisting of ambulatory clinics and hospital sitesin [place], [place], [place] and [place]. This disclosure is being madepursuant to the Care Everywhere program and may not contain all information available regarding this patient. Last updated 18.[facility] Allergies Active Allergy Reactions Criticality Noted Date [...] on last me nstrual period of 01/12/2024 Encounters Date Type Department Care Team Description 10/10/2024 3:12 PM GRAIN CLEANER AND TRANSFER OPERATOR - 10/10/2024 11:59 PM GRAIN CLEANER AND TRANSFER OPERATOR Hospital Encounter [facility] [address] [place] [phone] Hollie Claudio MD Discharge Disposition: Home or Self Care 10/03/2024 3:15 PM GRAIN CLEANER AND TRANSFER OPERATOR - 10/03/2024 11:59 PM GRAIN CLEANER AND TRANSFER OPERATOR Hospital Encounter [facility] [address] [place] [phone] Delphine Rajan MD Grant, Jacqueline H, MD Discharge Disposition: Home or Self Care 09/26/2024 3:15 PM GRAIN CLEANER AND TRANSFER OPERATOR - 09/26/2024 11:59 PM GRAIN CLEANER AND TRANSFER OPERATOR Hospital Encounter [facility] [address] [place] [phone] Javier Simpson MD Discharge Disposition: Home or Self Care 09/19/2024 11:15 AM GRAIN CLEANER AND TRANSFER OPERATOR - 09/19/2024 11:59 PM GRAIN CLEANER AND TRANSFER OPERATOR Hospital Encounter [facility] [address] [place] [phone] Hollie Claudio MD Discharge Disposition: Home or Self Care 08/29/2024 7:30 AM GRAIN CLEANER AND TRANSFER OPERATOR - 08/29/2024 11:59 PM GRAIN CLEANER AND TRANSFER OPERATOR Hospital Encounter [facility] [address] [place] [phone] Delphine Rajan MD Booker, Corenthian J, MD Discharge Disposition: Home or [...] 05/06/2018 2:56 PM CDT Plan of Treatment Health Maintenance [...] - COMPLETE Routine 10/10/2024 3 :14 PM GRAIN CLEANER AND TRANSFER OPERATOR SGA (small for gestational age) (HCC) 38 weeks gestation of (HCC) Amniotic fluid index borderline low BIOPHYSICAL PROFILE WO NST Routine 10/03/2024 3:20 PM GRAIN CLEANER AND TRANSFER OPERATOR 37 weeks gestation of (HCC) Amniotic fluid index borderline low SONOGRAM - COMPLETE Routine 09/26/2024 3 :25 PM GRAIN CLEANER AND TRANSFER OPERATOR Encounter for ultrasound to assess growth (HCC) 36 weeks gestation of (HCC) Amniotic fluid index borderline low SONOGRAM - COMPLETE Routine 09/19/2024 1 1:20 AM GRAIN CLEANER AND TRANSFER OPERATOR SGA (small for gestational age) (HCC) Encounter for ultrasound to assess growth (HCC) 36 weeks gestation of (HCC) SONOGRAM - COMPLETE Routine 08/29/2024 7 :40 AM GRAIN CLEANER AND TRANSFER OPERATOR SGA (small for gestational age) (HCC) Encounter [...] * SONOGRAM - COMPLETE (10/10/2024 3:14 PM GRAIN CLEANER AND TRANSFER OPERATOR) Only the most recent of4 resultswithin the [...] delivery IOL scheduled 10/17/24 Coding ====== Procedures [id number]: US Uterus Limited 29372: Biophysical Profile W/O NST [place] PACS Anatomical Region Laterality Modality Other 10/10/2024 3:14 PM GRAIN CLEANER AND TRANSFER OPERATOR Sade Flores MD [facility] ORDERABLES * BIOPHYSICAL PROFILE WO NST (10/03/2024 3:20 PM GRAIN CLEANER AND TRANSFER OPERATOR) Linked Results Indication ======== Small for gestational [...] weekly [place] and BPP Coding ====== Procedures [id number]: US Uterus Limited 12033: Biophysical Profile W/O NST [place] PACS Anatomical Region Laterality Modality Other 10/03/2024 3:20 PM GRAIN CLEANER AND TRANSFER OPERATOR Delphine Rajan MD [facility] ORDERABLES * PAP IG LB CT+NG+TV [...] 11:15 AM CDT Source.............Cervix;Endocervix LMP / Prev Treat...[id number] No. of containers..01 ThinPrep Vial Resulting Agency Comment [facility] [address] [id number] Marlyn Sam MD LAB - PATHOLOGY/CYTO LOGY ORDERABLES [facility] ACCOUNT BILL [address] [place] [address] from Last 3 Months or Most Recently Relevant to Health Maintenance Care Teams Electric Container Tester Relationship Specialty Start Date End Date Unknown, Provider PCP - General 01/12/18
== END 2024-10-11 13:55 | disposition home or self-care (01) ==
LOC: ANHOBOP 13:48 → ANHLDR 13:50
PROVIDERS: PCP Family Medicine; Visit Provider Obstetrics & Gynecology
DX: O42.90 Premature rupture of membranes, unspecified as to length of time between rupture and onset of labor, unspecified weeks of gestation (principal); Z3A.00 Weeks of gestation of pregnancy not specified
CPT/HCPCS: 59025; 84112; 99199

== ENCOUNTER 2024-10-17 17:10 | Inpatient (IN) | payer OTHER, SELFPAY ==
[2024-10-17] VITALS (13 sets, daily range): BP systolic 128–151; BP diastolic 80–92; PULSE 62–87; TEMP 36.4–36.6; BMI 26.2
--- NOTE | 2024-10-17 17:55 | LDADM ---
This patient, Alicia Ochoa, was admitted to Labor/Delivery/Recovery 109 on 10/17/24 at 17:10. Plans for labor, pain management and were discussed with patient. Patient/family oriented to hospital policies and general routines including ID bracelet, bed and alarms, visiting hours, pain management, procedures, bathroom and other care routines, personal items, smoking policy, room service/diet and guest tray routines, infant security routines, and visiting hours. Patient/Family are encouraged to report perceived risks to care and to ask questions if they do not understand what they are told or what they should do. See OBIX for further documentation.
[2024-10-17 18:07] LABS: Basophils Percent Auto 0.3 % (0.2-1.2); Eosinophils Absolute Auto 0.1 K/mm3 (0-0.3); Eosinophils Percent Auto 0.8 % (0-4.4); Hematocrit 38.9 % (37.0-47.0); Hemoglobin 13.3 g/dL (12.0-15.0); Immature Granulocyte Absolute 0.05 K/mm3 (0.00-0.031); Immature Granulocyte Percent A 0.4 % (0-0.5); Lymphocytes Absolute Auto 1.91 K/mm3 (0.9-3.2); Lymphocytes Percent Auto 16.3 % (18.3-44.2); Mean Corpuscular HGB Conc 34.2 g/dl (32-36); Mean Corpuscular Hemoglobin 31.8 pg (26-34); Mean Corpuscular Volume 93.1 fl (80-100); Mean Platelet Volume 10.6 fl (7.4-10.4); Monocytes Absolute Auto 0.7 K/mm3 (0.1-0.6); Monocytes Percent Auto 6.1 % (2.6-8.5); Neutrophils Absolute Auto 8.9 K/mm3 (1.3-6.7); Neutrophils Percent Auto 76.1 % (45.5-73.1); Platelet Count Result 159 k/mm3 (150-375); Red Blood Count 4.18 M/mm3 (4.2-5.4); Red Cell Distribution Width 13.2 % (11.5-14.5); White Blood Count 11.7 K/mm3 (4.5-10.0)
--- OUTSIDE RECORDS SUMMARY | 2024-10-17 18:41 | XMS_ITS | Clinical Summary ---
Author Organization [facility] Address [address] [place] [address] Care Team Providers Care Corrective And Manual Arts Therapist Name Role Phone Unknown, Provider Primary Care Provider Unavaila ble Source Comments [facility],non-owned Affiliates and Associated Physician Practices is amultiple site organization consisting of ambulatory clinics and hospital sitesin [place], [place], [place] and [place]. This disclosure is being madepursuant to the Care Everywhere program and may not contain all information available regarding this patient. Last updated 18.[facility] [employer] Allergies Active Allergy Reactions Criticality Noted Date [...] Department Care Team Description 10/10/2024 3:12 PM WASHING MACHINE LOADER AND PULLER - 10/10/2024 11:59 PM WASHING MACHINE LOADER AND PULLER Hospital Encounter [facility] [address] [place] [phone] Hollie Claudio MD Discharge Disposition: Home or Self Care 10/03/2024 3:15 PM WASHING MACHINE LOADER AND PULLER - 10/03/2024 11:59 PM WASHING MACHINE LOADER AND PULLER Hospital Encounter [facility] [address] [place] [phone] Delphine Rajan MD Grant, Jacqueline H, MD Discharge Disposition: Home or Self Care 09/26/2024 3:15 PM WASHING MACHINE LOADER AND PULLER - 09/26/2024 11:59 PM WASHING MACHINE LOADER AND PULLER Hospital Encounter [facility] [address] [place] [phone] Javier Simpson MD Discharge Disposition: Home or Self Care 09/19/2024 11:15 AM WASHING MACHINE LOADER AND PULLER - 09/19/2024 11:59 PM WASHING MACHINE LOADER AND PULLER Hospital Encounter [facility] [address] [place] [phone] Hollie Claudio MD Discharge Disposition: Home or Self Care 08/29/2024 7:30 AM WASHING MACHINE LOADER AND PULLER - 08/29/2024 11:59 PM WASHING MACHINE LOADER AND PULLER Hospital Encounter [facility] [address] [place] [phone] Delphine Rajan MD Booker, Corenthian J, MD [...] - COMPLETE Routine 10/10/2024 3 :14 PM WASHING MACHINE LOADER AND PULLER SGA (small for gestational age) (HCC) 38 weeks gestation of (HCC) Amniotic fluid index borderline low BIOPHYSICAL PROFILE WO NST Routine 10/03/2024 3:20 PM WASHING MACHINE LOADER AND PULLER 37 weeks gestation of (HCC) Amniotic fluid index borderline low SONOGRAM - COMPLETE Routine 09/26/2024 3 :25 PM WASHING MACHINE LOADER AND PULLER Encounter for ultrasound to assess growth (HCC) 36 weeks gestation of (HCC) Amniotic fluid index borderline low SONOGRAM - COMPLETE Routine 09/19/2024 1 1:20 AM WASHING MACHINE LOADER AND PULLER SGA (small for gestational age) (HCC) Encounter for ultrasound to assess growth (HCC) 36 weeks gestation of (HCC) SONOGRAM - COMPLETE Routine 08/29/2024 7 :40 AM WASHING MACHINE LOADER AND PULLER SGA (small for gestational age) (HCC) Encounter [...] * SONOGRAM - COMPLETE (10/10/2024 3:14 PM WASHING MACHINE LOADER AND PULLER) Only the most recent of4 resultswithin the [...] delivery IOL scheduled 10/17/24 Coding ====== Procedures [id number]: US Uterus Limited 63869: Biophysical Profile W/O NST [place] PACS Anatomical Region Laterality Modality Other 10/10/2024 3:14 PM WASHING MACHINE LOADER AND PULLER Sade Flores MD [facility] ORDERABLES * BIOPHYSICAL PROFILE WO NST (10/03/2024 3:20 PM WASHING MACHINE LOADER AND PULLER) Linked Results Indication ======== Small for gestational [...] weekly [place] and BPP Coding ====== Procedures [id number]: US Uterus Limited 07620: Biophysical Profile W/O NST [place] PACS Anatomical Region Laterality Modality Other 10/03/2024 3:20 PM WASHING MACHINE LOADER AND PULLER Delphine Rajan MD [facility] ORDERABLES * PAP IG LB CT+NG+TV [...] 11:15 AM CDT Source.............Cervix;Endocervix LMP / Prev Treat...[id number] No. of containers..01 ThinPrep Vial Resulting Agency Comment [facility] [address] [phone] Marlyn Sam MD LAB - PATHOLOGY/CYTO LOGY ORDERABLES [facility] ACCOUNT BILL [address] [place] [address] from Last 3 Months or Most Recently Relevant to Health Maintenance Care Teams Corrective And Manual Arts Therapist Relationship Specialty Start Date End Date Unknown, Provider PCP - General 01/12/18
--- OUTSIDE RECORDS SUMMARY | 2024-10-17 18:41 | XMS_ITS | Patient Health Summary ---
Author Organization [facility] Address [address] [place] [address] Care Team Providers Care Heat Transfer Technician Name Role Phone Unknown, Provider Primary Care Provider Unavaila ble Note from [facility][note 3],non-owned Affiliates and Associated Physician Practices is amultiple site organization consisting of ambulatory clinics and hospital sitesin [place], [place], [place] and [place]. This disclosure is being madepursuant to the Care Everywhere program and may not contain all information available regarding this patient. Last updated 18.[facility] Allergies * Formaldehyde(Unknown) * Nickel(Unknown) * Silicone(Eye [...] Comme nts Yes 10/18/2024 Based on last nc nstrual period of 01/12/2024 Sex and Gender [...] Performed for SGA (small for gestational age) ([facility]), 38 weeks gestation of ([facility]), Amniotic fluid index borderline low * BIOPHYSICAL PROFILE WO NST(Performed 10/03/2024) Performed for 37 weeks gestation of ([facility]), Amniotic fluid index borderline low * SONOGRAM - COMPLETE(Performed 09/26/2024) Performed for Encounter for ultrasound to assess growth ([facility]), 36 weeks gestation of ([facility]), Amniotic fluid index borderline low * SONOGRAM - COMPLETE(Performed 09/19/2024) Performed for SGA (small for gestational age) ([facility]), Encounter for ultrasound to assess growth ([facility]), 36 weeks gestation of ([facility]) * SONOGRAM - COMPLETE(Performed 08/29/2024) Performed for SGA (small for gestational age) ([facility]), Encounter for anatomic survey ([facility]), Encounter for ultrasound to assess growth ([facility]), 32 weeks gestation of ([facility]) * LAB MISC TEST(Performed 08/30/2018) * TISSUE [...] * SONOGRAM - COMPLETE (10/10/2024 3:14 PM AIRFIELD OPERATIONS SPECIALIST) Only the most recent of4 resultswithin the [...] delivery IOL scheduled 10/17/24 Coding ====== Procedures [id number]: US Uterus Limited 13930: Biophysical Profile W/O NST ERN [facility] [place] PACS Anatomical Region Laterality Modality Other 10/10/2024 3:14 PM AIRFIELD OPERATIONS SPECIALIST Sade Flores MD [facility] ORDERABLES * BIOPHYSICAL PROFILE WO NST (10/03/2024 3:20 PM AIRFIELD OPERATIONS SPECIALIST) Linked Results Indication ======== Small for gestational [...] weekly [place] and BPP Coding ====== Procedures [id number]: US Uterus Limited 43142: Biophysical Profile W/O NST [place] PACS Anatomical Region Laterality Modality Other 10/03/2024 3:20 PM AIRFIELD OPERATIONS SPECIALIST Delphine Rajan MD [facility] ORDERABLES * LAB MISC TEST (08/30/2018) Blood BLOOD SPECIMEN / Unknown Erasmo Doherty MD LAB SEND OUT * TISSUE TRANSGLUTAMINASE AB IGA (08/27/2018 3:47 PM AIRFIELD OPERATIONS SPECIALIST) TTG Antibody IgA <2 0 - 3 U/mL [facility] INSURANCE BILL Comment: Negative 0 - 3 Weak Positive 4 - 10 Positive >10 . Tissue Transglutaminase (tTG) has been identified as the endomysial antigen. Studies have demonstr- ated that endomysial IgA antibodies have over 99% specificity for gluten sensitive enteropathy. 08/27/2018 3:47 PM AIRFIELD OPERATIONS SPECIALIST 08/27/2018 Narrative Resulting Agency Comment [facility] [place] [address] [facility] [phone] Erasmo Doherty MD LAB - SEROLOGY ORDER EDWIN [facility] INSURANCE BILL [address] [place] [address] * CBC WITH DIFFERENTIAL (08/27/2018 3:47 PM AIRFIELD OPERATIONS SPECIALIST) WBC 5.5 3.4 - 10.8 x10E3/uL [facility] [...] test is not needed 08/27/2018 3:47 PM AIRFIELD OPERATIONS SPECIALIST 08/27/2018 Narrative Resulting Agency Comment [facility] [place] [address] [facility] [phone] Erasmo Doherty MD LAB - HEMATOLOGY ORD ERABLES [facility] INSURANCE BILL [address] [place] [address] * FOLATE (08/27/2018 3:47 PM AIRFIELD OPERATIONS SPECIALIST) [facility] Signature Folate 8.2 >3.0 ng/mL [facility] INSURANCE BILL Comment: A serum folate concentration of less than 3.1 ng/mL is considered to represent clinical deficiency. 08/27/2018 3:47 PM AIRFIELD OPERATIONS SPECIALIST 08/27/2018 Narrative Resulting Agency Comment [facility] [place] [address] [facility] [phone] Erasmo Doherty MD LAB - CHEMISTRY SHANNAN CABRERA [facility] INSURANCE BILL [address] [place] [address] * VITAMIN B12 (08/27/2018 3:47 PM AIRFIELD OPERATIONS SPECIALIST) Vitamin B12 608 232 - 1,245 pg/mL [facility] INSURANCE BILL 08/27/2018 3:47 PM AIRFIELD OPERATIONS SPECIALIST 08/27/2018 Narrative Resulting Agency Comment [facility] [place] [address] [facility] [phone] Erasmo Doherty MD LAB - CHEMISTRY SHANNAN CABRERA Performing Organization Address City/[facility]/ZIP Co de Phone Number [facility] INSURANCE BILL [address] [place] [address] * TSH (08/27/2018 3:47 PM AIRFIELD OPERATIONS SPECIALIST) TSH 1.370 0.450 - 4.500 uIU/mL [facility] INSURANCE BILL 08/27/2018 3:47 PM AIRFIELD OPERATIONS SPECIALIST 08/27/2018 Narrative Resulting Agency Comment [facility] [place] [address] [facility] [phone] Erasmo Doherty MD LAB - CHEMISTRY SHANNAN CABRERA Performing Organization Address City/[facility]/ZIP Co de Phone Number [facility] INSURANCE BILL [address] [place] [address] * T4 FREE (08/27/2018 3:47 PM AIRFIELD OPERATIONS SPECIALIST) T4 Free 1.31 0.82 - 1.77 ng/dL [facility] INSURANCE BILL 08/27/2018 3:47 PM AIRFIELD OPERATIONS SPECIALIST 08/27/2018 Narrative Resulting Agency Comment [facility] [place] [address] [facility] [phone] Erasmo Doherty MD LAB - CHEMISTRY SHANNAN CABRERA [facility] INSURANCE BILL [address] [place] [address] * IRON + TRANSFERRIN PANEL (08/27/2018 3:47 PM AIRFIELD OPERATIONS SPECIALIST) Iron 92 27 - 159 ug/dL [facility] INSURANCE BILL Transferrin 328 200 - 370 mg/dL [facility] INSURANCE BILL Blood BLOOD SPECIMEN / Unknown 08/27/2018 3:47 PM AIRFIELD OPERATIONS SPECIALIST 08/27/2018 Narrative Resulting Agency Comment [facility] [place] [address] [facility] [phone] Erasmo Doherty MD LAB - CHEMISTRY SHANNAN CABRERA [facility] INSURANCE BILL [address] [place] [address] * SKIN TEST PPD - POINT OF CARE (11/16/2017) Only the most recent of3 resultswithin the time period is included. PPD 0 induration Other MISCELLANEOUS SAMPLE S / Unknown 11/16/2017 Inna Rivera CHEMICAL DEPENDENCY ATTENDANT-LEAD LAYING AND GLUING MACHINE OPERATOR LAB - POINT O F CARE ORDERABLES [...] 11:15 AM CDT Source.............Cervix;Endocervix LMP / Prev Treat...[id number] No. of containers..01 ThinPrep Vial Resulting Agency Comment [facility] [address] [phone] Marlyn Sam MD LAB - PATHOLOGY/CYTO LOGY ORDERABLES [facility] ACCOUNT BILL [address] [place] [address] Care Teams Heat Transfer Technician Relationship Specialty Start Date End Date Unknown, Provider PCP - General 01/12/18
--- OUTSIDE RECORDS SUMMARY | 2024-10-17 18:41 | XMS_ITS | Data Portability ---
Author Organization [place], [id number] Address [address] [place] [address] Care Team Providers Care Yarn Dry Room Worker Name Role Phone LEIGH ANN KATZ Primary Care Provider [phone] Assessment No assessment recorded. Plan of Treatment [...] By Organization Details Last Modified Time 11/16/2020 [id number] 1) Discussed difference between heritable and acquired [...] Address Organization Details Recorded Time Postural dizziness [id number] Active 021 Barry Santiago MD [address], [place], [address], [place] - [facility] 1 09:19:38 Shoulder pain [id number] Active 021 Barry Santiago MD [address], [address], [facility] [place], [address], [place] - [place] [facility] [place] 09:19:38 Problem Notes None recorded. Procedures Surgical History Date Name Laterality Status Provider Name and Address Organization Details Recorded Time Fall Risk Assessment ADULT completed Job Ellis LPN [facility] 11/16/2020 08:14:00 Imaging Results None recorded. [...] DateTime 76 /min 185.9 cm 21.5 kg/m2 62788 g 138 mm[Hg] 82 mm[Hg] Job Ellis LPN [facility] 08:12:32 Social History Question Answer Notes LastModified by Organizat ion Details LastModified Time Tobacco Smoking Status Never Smoker Job Ellis LPN null, [place] [facility] 11/16/2020 08:09:15 Do You Or Have [...] SNOMED-CT Code Diagnosis ICD10 Code Diagnosis Note [id number] Barry Santiago MD IND_PED_D GH_DOC [address] [facility] [address] [place] [address] 11/16/2020 07:57:35 11/16/2020 08:57:07 Shoulder pain [id number] M25.519 Postural dizziness 57449 7008 R42 Health Concerns Section Related Observation LastModified by Organization Detai ls LastModified Time None Recorded Concern Status LastModified by Organization Details LastModified Time None Recorded Advance Directives Directive None Recorded Payers Encounter Date Sequence Insurance Name Policy Number Policy Sarkar Covered Member ID Sarkar Member ID Guarantor Name 11/16/2020 1 [facility] [id number] Alicia Ochoa [id number] Alicia Ochoa Notes Date Note Type Note Provider Name and Address Organization Details Recorded Time 11/16/2020 text/html Alicia is a 30yo with a previous diagnosis of undifferentiated connective tissue disorder who is seen to discuss concerns around family planning. She is accompanied by her .Alicia reports being seen by [facility] due to tall stature, myopia, and joint [...] or redness, and has not seen a data steward. Alicia does report intermittent joint pain primarily affecting her shoulders and occasionally hands. 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 She does try to keep physically active. Alicia and her spouse are seen due to wanting to start a family and concerned if there is a disorder Alicia has, what is the chance of passing this down. Barry Santiago MD [address], [address], [place], [address], [place] 11/16/2020 09:28:46 OBGyn Episode No OBEpisode recorded.
--- OUTSIDE RECORDS SUMMARY | 2024-10-17 18:41 | XMS_ITS | Referral Summary ---
Author Organization [facility] Address [address] [facility] [place] [address] Care Team Providers Care Mainspring Winder Name Role Phone Unknown, Provider Primary Care Provider Unavaila ble Source Comments [facility],non-owned Affiliates and Associated Physician Practices is amultiple site organization consisting of ambulatory clinics and hospital sitesin [place], [place], [place] and [place]. This disclosure is being madepursuant to the Care Everywhere program and may not contain all information available regarding this patient. Last updated 18.[facility] Encounters Date Type Department Care Team Description 10/10/2024 3:12 PM HARD HAT DIVER - 10/10/2024 11:59 PM HARD HAT DIVER Hospital Encounter [facility] [address] [place] [address] González, Hollie Gibbs MD Discharge Disposition: Home or Self Care 10/03/2024 3:15 PM HARD HAT DIVER - 10/03/2024 11:59 PM HARD HAT DIVER Hospital Encounter [facility] [address] [place] [id number] Delphine Rajan MD Grant, Jacqueline H, MD Discharge Disposition: Home or Self Care 09/26/2024 3:15 PM HARD HAT DIVER - 09/26/2024 11:59 PM HARD HAT DIVER Hospital Encounter [facility] [address] [place] [address] Javier Simpson MD Discharge Disposition: Home or Self Care 09/19/2024 11:15 AM HARD HAT DIVER - 09/19/2024 11:59 PM HARD HAT DIVER Hospital Encounter Critical access hospital [facility] [address] [place], [place] [phone] Hollie Claudio MD Discharge Disposition: Home or Self Care 08/29/2024 7:30 AM HARD HAT DIVER - 08/29/2024 11:59 PM HARD HAT DIVER Hospital Encounter [facility] [address] [place] [address] Delphine Rajan MD Booker, Lacey Gibbons MD [...] - COMPLETE Routine 10/10/2024 3 :14 PM HARD HAT DIVER SGA (small for gestational age) (HCC) 38 weeks gestation of ([facility]) Amniotic fluid index borderline low BIOPHYSICAL PROFILE WO NST Routine 10/03/2024 3:20 PM HARD HAT DIVER 37 weeks gestation of (HCC) Amniotic fluid index borderline low SONOGRAM - COMPLETE Routine 09/26/2024 3 :25 PM HARD HAT DIVER Encounter for ultrasound to assess growth (HCC) 36 weeks gestation of ([facility]) Amniotic fluid index borderline low SONOGRAM - COMPLETE Routine 09/19/2024 1 1:20 AM HARD HAT DIVER SGA (small for gestational age) ([facility]) Encounter for ultrasound to assess growth (HCC) 36 weeks gestation of ([facility]) SONOGRAM - COMPLETE Routine 08/29/2024 7 :40 AM HARD HAT DIVER SGA (small for gestational age) ([facility]) Encounter for anatomic survey (HCC) Encounter for ultrasound to assess growth ([facility]) 32 weeks gestation of ([facility]) PAP IG LB CT+NG+TV RFLX HPV ASCU Routine 06/11/2017 5:04 PM CDT Well female exam with routine gynecological exam Screening examination for venereal disease from Last 3 Months or Most Recently Relevant to Health Maintenance Results * SONOGRAM - COMPLETE (10/10/2024 3:14 PM HARD HAT DIVER) Only the most recent of4 resultswithin the [...] delivery IOL scheduled 10/17/24 Coding ====== Procedures [id number]: US Uterus Limited 35537: Biophysical Profile W/O NST [place] PACS Anatomical Region Laterality Modality Other 10/10/2024 3:14 PM HARD HAT DIVER Sade Flores MD [facility] ORDERABLES * BIOPHYSICAL PROFILE WO NST (10/03/2024 3:20 PM HARD HAT DIVER) Linked Results Indication ======== Small for gestational [...] weekly [place] and BPP Coding ====== Procedures 87370: US Uterus Limited 48781: Biophysical Profile W/O NST [facility] PACS Anatomical Region Laterality Modality Other 10/03/2024 3:20 PM HARD HAT DIVER Delphine Rajan MD [facility] ORDERABLES * PAP IG LB [...] 11:15 AM CDT Source.............Cervix;Endocervix LMP / Prev Treat...[id number] No. of containers..01 ThinPrep Vial Resulting Agency Comment [facility] [address] [id number] Marlyn Sam MD LAB - PATHOLOGY/CYTO LOGY ORDERABLES [facility] ACCOUNT BILL [address] [place] [address] from Last 3 Months or Most Recently Relevant to Health Maintenance Administered Medications Care Teams Mainspring Winder Relationship Specialty Start Date End Date Unknown, Provider PCP - General 01/12/18
--- OUTSIDE RECORDS SUMMARY | 2024-10-17 18:41 | XMS_ITS | Referral Summary ---
Author Organization [facility] Address [address] [place] [address] Care Team Providers Care Motor Vehicle Technician Name Role Phone No, Physician Primary Care Provider Allergies No known active allergies Medications multivitamin-Ca- iron-minerals tablet Take 1 tablet by mouth daily Active loratadine (CLARITIN) 10 mg tablet Take 10 mg by mouth daily Active Active Problems Problem Noted Date Diagnosed Date Refractive error 09/03/2020 Assessment & Plan (09/03/2020 4:19 PM COMPOUND WORKER): New SRx PRN, released new CLRx. OK to order PRN Dry eye syndrome of both eyes 09/03/2020 Assessment & Plan (09/03/2020 4:18 PM COMPOUND WORKER): ATs PRN, consider changing to Oasys 1 day if continued issues Lattice degeneration of left retina 09/03/2020 Assessment & Plan (09/03/2020 4:19 PM COMPOUND WORKER): No breaks noted 360, s/s of retinal [...] on file Legal Sex Female 3:14 PM COMPOUND WORKER Gender Identity Not on file Sexual Orientation Not on file Last Filed Vital Signs Vital Sign Reading Time Taken Comments Blood Pressure 123/81 11/06/2017 3:07 PM COMPOUND WORKER Pulse 81 11/06/2017 3:07 PM COMPOUND WORKER Temperature - - Respiratory Rate - - Oxygen Saturation - - Inhaled Oxygen Concentration - - Weight 71.7 kg (158 lb 0.1 oz) 11/06/2017 3:07 P M COMPOUND WORKER Height - - Body Mass Index - - Plan of Treatment Not on file Insurance [employer] COVENTRY HMO/POS Care Teams Motor Vehicle Technician Relationship Specialty Start Date End Date No, Physician PCP - General 08/22/20
--- OUTSIDE RECORDS SUMMARY | 2024-10-17 18:41 | XMS_ITS | Clinical Summary ---
Author Organization [facility] Address [address] [place] [address] Care Team Providers Care Manager Science Name Role Phone Mckenna Copeland MD Primary [...] daily. Active fluticasone propionate (FLONASE) 50 mcg/spray [place], Suspension nasal inhalerIndicatio ns:Allergic rhinitis, unspecified seasonality, [...] on file Legal Sex Female 9:37 AM GRANTS AND CONTRACTS ASSISTANT Gender Identity Not on file Sexual Orientation Not on file Last Filed Vital Signs Vital Sign Reading Time Taken Comments Blood Pressure 129/83 01/04/2021 4:45 PM CDT Pulse 73 01/04/2021 4:45 PM CDT Temperature 36.7 C (98.1 F) 01/04/2021 4:45 PM CDT Respiratory Rate 18 07/09/2020 1:02 PM GRANTS AND CONTRACTS ASSISTANT Oxygen Saturation 100% 01/04/2021 4:45 PM CDT [...] 9:15 AM CDT [facility] SENIOR HR GENERALIST: SEE COMMENT 2019 9:15 AM CDT [facility] Comment: DHARA CT(ASCP) CT screening location: [place] [address] [place] [address] EXPLANATORY NOTE SEE COMMENT 020 9:15 AM CDT [facility] Comment: EXPLANATORY NOTE: The [...] Organization Information: Site ID: [facility] Address: [address] [place] [address] Director: Sofia Munson us Maite Manriquez CHICKEN FANCIER PATHOLOGY/CYTOLOGY ORDERABLES Final Result [facility] [phone] from Last 3 Months or Most Recently Relevant to Health Maintenance Insurance [place] [id number] [facility] [place] [address] Care Teams Manager Science Relationship Specialty Start Date End Date Mckenna Copeland MD [address] [place] [phone] PCP - General Internal Medicine 07/29/18
--- OUTSIDE RECORDS SUMMARY | 2024-10-17 18:41 | XMS_ITS | Clinical Summary ---
Author Organization [facility] Address [address] [place] [address] Care Team Providers Care Marble Setter Name Role Phone No, Physician Primary Care Provider Allergies No known active allergies Medications multivitamin-Ca- iron-minerals tablet Take 1 tablet by mouth daily Active loratadine (CLARITIN) 10 mg tablet Take 10 mg by mouth daily Active Active Problems Problem Noted Date Diagnosed Date Refractive error 09/03/2020 Assessment & Plan (09/03/2020 4:19 PM SEED CORE OPERATOR): New SRx PRN, released new CLRx. OK to order PRN Dry eye syndrome of both eyes 09/03/2020 Assessment & Plan (09/03/2020 4:18 PM SEED CORE OPERATOR): ATs PRN, consider changing to Oasys 1 day if continued issues Lattice degeneration of left retina 09/03/2020 Assessment & Plan (09/03/2020 4:19 PM SEED CORE OPERATOR): No breaks noted 360, s/s of retinal [...] on file Legal Sex Female 3:14 PM SEED CORE OPERATOR Gender Identity Not on file Sexual Orientation Not on file Obstetrics History Last Filed Vital Signs Vital Sign Reading Time Taken Comments Blood Pressure 123/81 11/06/2017 3:07 PM SEED CORE OPERATOR Pulse 81 11/06/2017 3:07 PM SEED CORE OPERATOR Temperature - - Respiratory Rate - - Oxygen Saturation - - Inhaled Oxygen Concentration - - Weight 71.7 kg (158 lb 0.1 oz) 11/06/2017 3:07 P M SEED CORE OPERATOR Height - - Body Mass Index - [...] topic Insurance [employer] COVENTRY HMO/POS Care Teams Marble Setter Relationship Specialty Start Date End Date No, Physician PCP - General 08/22/20
[2024-10-17 18:58] LABS: HIV 1/2 Ab P24 Ag Result Negative (Negative)
[2024-10-17] MEDS: DINOPROSTONE 10 MG VAG INSERT VAGINAL (19:11)
[2024-10-17 19:25] LABS: Syphilis IgG/IgM Antibody Negative (Negative)
--- NOTE | 2024-10-17 19:39 | WPDANESEPP ---
Anes - Eval Pre Procedure Procedure: Labor epidural Date/Time: 10/17/24 19:39 Surgeon: Mark Preop Diagnosis: Abdominal pain with contractions Pre Op Diagnosis: IOL Patient Data Age: 34 Gender: F Height: 1.85 m Weight: 90 kg Last Vital Signs Temp 97.6 F 10/17/24 18:13 Pulse 71 10/17/24 19:30 BP 135/92 H 10/17/24 19:30 Allergies Allergy/AdvReac Type Severity Reaction Status Date / Time formaldehyde Allergy Intermediate Rash Verified 10/17/24 17:51 nickel Allergy Intermediate Rash Verified 10/17/24 17:51 Home Medications ?Medication ?Instructions ?Recorded ?Confirmed ?Type prenat.vits,zaki,tic-vcte-nvwkk 1 tablet PO DAILY 90 days #90 tabs 01/06/22 10/17/24 Rx aspirin 81 mg chewable tablet 81 mg PO DAILY 05/17/24 10/17/24 History Laboratory Tests 10/17/24 17:54 WBC 11.7 H K/mm3 (4.5-10.0) RBC 4.18 L M/mm3 (4.2-5.4) Hgb 13.3 g/dL (12.0-15.0) Hct 38.9 % (37.0-47.0) MCV 93.1 fl (80-100) MCH 31.8 pg (26-34) MCHC 34.2 g/dl (32-36) RDW 13.2 % (11.5-14.5) Plt Count 159 k/mm3 (150-375) MPV 10.6 H fl (7.4-10.4) Immature Gran % (Auto) 0.4 % (0-0.5) Neut % (Auto) 76.1 H % (45.5-73.1) Lymph % (Auto) 16.3 L % (18.3-44.2) [place] % (Auto) 6.1 % (2.6-8.5) Eos % (Auto) 0.8 % (0-4.4) Baso % (Auto) 0.3 % (0.2-1.2) Lymph # (Auto) 1.91 K/mm3 (0.9-3.2) [place] # (Auto) 0.7 H K/mm3 (0.1-0.6) Eos # (Auto) 0.1 K/mm3 (0-0.3) Baso # (Auto) 0.0 K/mm3 (0.0-0.1) Abs Immat Gran (auto) 0.05 H K/mm3 (0.00-0.031) Absolute Neuts (auto) 8.9 H K/mm3 (1.3-6.7) Absolute Nucleated RBC 0.000 K/mm3 (0.0-0.012) Nucleated RBC % 0.0 % (0.0-0.2) Syphilis IgG/IgM Ab Negative (Negative) RPR Titer Cancelled RPR Cancelled RPR Titer Add Testing Cancelled T.pallidum Ab (FTA-ABS) Cancelled T.pall Ab(FTA-ABS)Reflex Cancelled HIV 1&2 Ab/P24 Ag 4thGn Negative (Negative) Blood Type A Positive Antibody Screen Negative : gestational age HCG: positive Patient hx anesthesia problems: none Family hx anesthesia problems: none Results Review: All pre-operative results and documents have been reviewed as part of the pre-operative evaluation. [facility] Past Medical History Medical History (Updated 10/17/24 @ 19:41 by Luigi Carlos Jr., CRNA) GERD (gastroesophageal reflux disease) History of seizures as a child Overweight (BMI 25.0-29.9) and not yet delivered Encounter for induction of labor Headache, migraine Encounter for removal of skin lesion Anxiety Surgical History Surgical History H/O nasal septoplasty 2019 Family History Family History Grandparent Diabetes mellitus Grandparent Dementia Grandparent Heart disease Grandparent Family history of cancer Grandparent Carcinoma of colon Father Hypertension Grandparent Leukemia Glaucoma Mother Retinal disease Social History Social History Smoking status: Former smoker Alcohol intake: former Alcohol use details: minimal Substance use: never Substance use type: does not use Do You Feel Safe in your Home?: Yes Lack of Transportation: No Lack of Food: Never True Current Housing: I Do Not Have Housing Concerned About Future Housing: No Difficulty Paying Gas/Electric Bills: No Difficulty Paying for Meds: No Currently Unemployed: No Education: Master's Degree or Higher Difficulty w/ Childcare or Family Care: No Living arrangements: with family 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
[2024-10-18] VITALS (88 sets, daily range): BP systolic 110–154; BP diastolic 29–120; PULSE 59–157; RESP 16; TEMP 36.4–36.8; O2SAT 94–100
--- NOTE | 2024-10-18 07:10 | PM.IMHP ---
H&P: HPI History of Present Illness Date/Time: 10/17/24 07:10 Chief Complaint: induction of labor Narrative: Alicia is a 34yo @ 40.0wks who presents for elective IOL. She has had regular care and co-management with [facility]; initially for concerns of IUGR, but her daughter has continued to have normal (but small) growth. Her fluid has also been low normal . She reports good movement. She has been having irregular contractions. No VB or LOF. She is s/p cervidil overnight. 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 - possible connective tissue disorder - Covid in first trimester; ASA 81mg, growths q4wk after 28wk - CMV non-immune - Influenza A @ 28wks - SGA?-- seeing MFM AC 18%ile, EFW 29%ile - low normal fluid levels; [place] 9-11cm Review of Systems Constitutional: Constitutional: Denies chills, Denies fever(s) and Denies headache(s) Eyes: Eyes: Denies change in vision ENT: Denies headache(s) Cardiovascular: Cardiovascular: Denies chest pain and Denies dyspnea Respiratory: Respiratory: Denies dyspnea Genitourinary: Genitourinary: Denies abnormal vaginal bleeding and Denies vaginal discharge Neurologic: Denies headache(s) Psychiatric: Psychiatric: Denies anxiety and Denies depression [facility] Past Medical History Medical History (Updated 10/17/24 @ 19:41 by Luigi Carlos Jr., [employer] HELPER) GERD (gastroesophageal reflux disease) History of seizures as a child Overweight (BMI 25.0-29.9) and not yet delivered Encounter for induction of labor Headache, migraine Encounter for removal of skin lesion Anxiety Surgical History Surgical History H/O nasal septoplasty 2019 Family History Family History Grandparent Diabetes mellitus Grandparent Dementia Grandparent Heart disease Grandparent Family history of cancer Grandparent Carcinoma of colon Father Hypertension Grandparent Leukemia Glaucoma Mother Retinal disease Social History Social History Smoking status: Former smoker Alcohol intake: former Alcohol use details: minimal Substance use: never Substance use type: does not use Do You Feel Safe in your Home?: Yes Lack of Transportation: No Lack of Food: Never True Current Housing: I Do Not Have Housing Concerned About Future Housing: No Difficulty Paying Gas/Electric Bills: No Difficulty Paying for Meds: No Currently Unemployed: No Education: Master's Degree or Higher Difficulty w/ Childcare or Family Care: No Living arrangements: with family 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/Education: 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 Gender identity (if verbalized by the patient): Female Sexual Orientation (if Verbalized by the Patient): Straight or Heterosexual Spiritual care concerns: No Agree to blood products: Yes Meds Home Medications and Allergies Home Medications ?Medication ?Instructions ?Recorded ?Confirmed ?Type prenat.vits,zaki,[id number] 1 tablet PO DAILY 90 days #90 tabs 01/06/22 10/17/24 Rx aspirin 81 mg chewable tablet 81 mg PO DAILY 05/17/24 10/17/24 History Allergies Allergy/AdvReac Type Severity Reaction Status Date / Time formaldehyde Allergy Intermediate Rash Verified 10/17/24 17:51 nickel Allergy Intermediate Rash Verified 10/17/24 17:51 Exam Const: General: cooperative, healthy appearing, comfortable and no acute distress Orientation/consciousness: patient oriented x3 Resp: Effort & Inspection: normal respiratory effort Cardio: Rate: regular rate GI: GI Palp: No abdominal tenderness : Other: FHT's: 150's/ mod indra/ + accels/ no decels - cat 1 TOCO: ctxs q3min Cervix: 5/80/-1 Membranes: AROM, clear 0715 Presentation: cephalic Skin: General skin exam: normal color Neuro: General: patient oriented x3 Extrem: General: normal to inspection Psych: Appearance: grossly normal Affect: normal affect Attitude: cooperative Assessment and Plan Assessment and plan (1) Encounter for induction of labor: Code(s): Z34.90 - Encounter for supervision of normal , unspecified, unspecified trimester Status: Acute Plan - Admitted for elective IOL - s/p cervidil overnight - Plan for low dose pitocin - AROM, clear 0715 - Continuous monitoring; currently reassuring - GBS negative - Anesthesia consult PRN pain
[2024-10-18] MEDS: LACTATED RINGERS 1,000 ML 125 ML IV CONT ×2 (07:35→08:44)
[2024-10-18] MEDS: OXYTOCIN 30 UNITS/NS 500 ML 30 UNITS/500 ML BAG 999 UNITS IV CONT (11:26)
--- NOTE | 2024-10-18 11:46 | P.PCNOB_ITS ---
OB - Vaginal Delivery Note Procedure Delivery date: 10/18/24 Events: Elective Induction of Labor Induction method: Per Cervidil Protocol Delivery augmentation: Rupture of Membranes Delivery monitor: External FHT and External Uterine Route of delivery: Laceration Description: Perineal - 1st Degree and Labial (right) Delivery repair: vicryl Specimen: Yes (placenta) Quantitative Blood Loss (ml): 150 Anesthesia type: Epidural Disposition: Floor Complications: No immediate complications [place] Baby Date of : 10/18/24 Time of : 11:17 Gestational Age by Date: 40 gender: Female Weight (pounds): 7 Weight (ounces): 1 presentation: vertex Placenta delivery description: Expressed Cord Vessel Description: 3 Vessels, Nuchal Cord and Reduced score one minute: 8 score five minutes: 9 Narrative: Alicia progressed to complete dilation with strong desire to push. She pushed for approximately 10 minutes with good maternal effort. She delivered the head over intact perineum. The nuchal cord was noted but loose and reduced. She easily delivered the 's shoulders and body without complication. The was immediately placed skin to skin and had spontaneous cry. Delayed cord clamping was performed. The umbilical cord was then doubly clamped and cut. A segment of the cord was collected for cord gases. The remaining cord blood was collected for typing. With Pitocin running and gentle downward traction on the cord the placenta delivered without complication. Bimanual massage was performed and good uterine tone with minimal bleeding was noted. She was examined and a over a right labial laceration and a small first-degree perineal laceration were identified. They were repaired in the normal fashion using 3-0 Vicryl and good hemostasis was noted. Her uterus remained firm with minimal bleeding. Sponge, lap, instrument, and needle counts were correct at the end the procedure. The infant was taken to the warmer for grunting. Mom remained in the birthing suite in a stable condition.
[2024-10-18] MEDS: OXYTOCIN 30 UNITS/NS 500 ML 30 UNITS/500 ML BAG 125 UNITS IV CONT (11:57)
[2024-10-18] MEDS: WITCH HAZEL 40 PADS 1 PAD TOPICAL (14:30)
[2024-10-18] MEDS: DOCUSATE SODIUM 100 MG CAPSULE PO (15:13)
--- NOTE | 2024-10-18 15:50 | OBPPTRN ---
Patient transferred to post room #[id number] via (wheelchair ). Support person present. Oriented to unit, room, information board, rooming in, admission packet and security measures. Patient verbalizes understanding.
[2024-10-18] MEDS: IBUPROFEN 600 MG TABLET PO (17:02)
[2024-10-18] MEDS: ACETAMINOPHEN 325 MG TABLET 650 MG PO (20:58)
[2024-10-19 05:52] LABS: Hematocrit 37.4 % (37.0-47.0); Hemoglobin 12.3 g/dL (12.0-15.0); Immature Platelet Fraction Pct 4.6 % (0.9-11.2); Mean Corpuscular HGB Conc 32.9 g/dl (32-36); Mean Corpuscular Hemoglobin 31.2 pg (26-34); Mean Corpuscular Volume 94.9 fl (80-100); Mean Platelet Volume 10.6 fl (7.4-10.4); Platelet Count Result 131 k/mm3 (150-375); Red Blood Count 3.94 M/mm3 (4.2-5.4); Red Cell Distribution Width 13.2 % (11.5-14.5); White Blood Count 9.8 K/mm3 (4.5-10.0)
[2024-10-19 06:02] LABS: Alanine Aminotransferase 27 U/L (6-35); Albumin Level 2.8 g/dL (3.5-5.1); Alkaline Phosphatase 102 U/L (38-126); Anion Gap 8 mmol/L (4-12); Aspartate Amino Transferase 33 U/L (14-36); Bilirubin,Total 0.3 mg/dL (0.2-1.3); Blood Urea Nitrogen 7 mg/dL (7-17); Calcium 8.5 mg/dL (8.4-10.2); Carbon Dioxide 21 mmol/L (22-30); Chloride 108 mmol/L (98-107); Estimated CRCL calculation 204 ml/min; Estimated Glomerular Filt Rate > 60; Glucose 86 mg/dL (65-110); Sodium 137 mmol/L (137-145)
[2024-10-19] MEDS: DOCUSATE SODIUM 100 MG CAPSULE PO (07:00)
[2024-10-19] MEDS: MULTIVIT/MIN/PREN/FOL AC/IRON TABLET 1 TAB PO (07:00)
[2024-10-19 07:05] VITALS: BP 121/80; PULSE 69; RESP 16; TEMP 36.6; O2SAT 97
--- NOTE | 2024-10-19 07:18 | P.PNOB_ITS ---
OB - PN: Subj Subjective Date/time seen: 10/19/24 07:18 Narrative: PPD#1 Alicia reports doing well today. Her bleeding is gym supervisor. Her pain is controlled. She is tolerating regular diet, voiding, passing gas, and ambulating without issues. She is breast feeding. She would like to go home today. OB - PN: Obj Data Labs 10/19/24 05:33 10/19/24 05:33 Labs: Laboratory Results - last 24 hr 10/19/24 05:33 WBC 9.8 RBC 3.94 L Hgb 12.3 Hct 37.4 MCV 94.9 MCH 31.2 MCHC 32.9 RDW 13.2 Plt Count 131 L MPV 10.6 H % Immature Plt Fraction 4.6 Sodium 137 Potassium 4.0 Chloride 108 H Carbon Dioxide 21 L Anion Gap 8 BUN 7 Creatinine 0.38 L Estim Creat Clear Calc 204 Estimated GFR > 60 Glucose 86 Calcium 8.5 Total Bilirubin 0.3 AST 33 ALT 27 Alkaline Phosphatase 102 Total Protein 6.0 L Albumin 2.8 L OB - PN A/P Assessment and Plan (1) Normal vaginal delivery of second : Code(s): O80 - Encounter for full-term uncomplicated delivery Status: Acute Plan day: 1 Plan: routine care and discharge home (this pm) Comments: - PO pain meds - Regular diet - Ambulation and hydration encouraged - Continue putting baby to breast q2-3hr - Pelvic rest; take meds as prescribed - ER return precautions: fever, n/v/abd pain, bleeding, HTN Time Spent With Patient Time: Total time spent is greater than 50% in coordination of care (as documented) at patient's floor/unit and/or counseling patient: Review of Systems 2 Constitutional: Constitutional: Denies chills, Denies fever(s) and Denies headache(s) Eyes: Eyes: Denies change in vision ENT: Denies dizziness and Denies headache(s) Cardiovascular: Cardiovascular: Denies chest pain, Denies palpitations and Denies dyspnea Respiratory: Respiratory: Denies cough and Denies dyspnea Gastrointestinal: Gastrointestinal: Denies nausea and Denies vomiting Neurologic: Denies dizziness and Denies headache(s) Endocrine: Endocrine: Denies palpitations Exam 2 Const: General: cooperative, healthy appearing, comfortable and no acute distress Orientation/consciousness: patient oriented x3 Resp: Effort & Inspection: normal respiratory effort Auscultation: clear to auscultation bilaterally Cardio: Rate: regular rate GI: Inspection: non-distended GI Palp: No abdominal tenderness and Yes Soft to palpation Auscultation: normal bowel sounds : Other: fundus firm Skin: General skin exam: normal color Neuro: General: patient oriented x3 Extrem: General: normal to inspection Psych: Appearance: grossly normal Affect: normal affect Attitude: c ooperative
--- NOTE | 2024-10-19 07:21 | P.DS_ITS ---
DS: Admitting Diagnosis Discharge Date 10/19/24 Admitting Diagnosis Elective IOL DS: Discharge Diagnosis Discharge Diagnosis (1) Normal vaginal delivery of second : Code(s): O80 - Encounter for full-term uncomplicated delivery Status: Acute OB - DS: Summary OB Procedures : NST and Ultrasound OB Procedures Intrapartum: Spontaneous Vag Delivery OB Procedures: : None Peripartum Data Infant Delivery Method: Natural Vaginal Laceration Description: Perineal - 1st Degree and Labial (right) Episiotomy description: None complications: none 1: Gender: Female Disposition of : home Status at Discharge Functional status at discharge: independent ambulation Overall status at discharge: patient is back to baseline Time Spent with Patient Time attestation: Total time spent providing and/or coordinating discharge services: Time spent: Less than 30 minutes Exam Const: General: cooperative, healthy appearing, comfortable and no acute distress Orientation/consciousness: patient oriented x3 Resp: Effort & Inspection: normal respiratory effort Auscultation: clear to auscultation bilaterally Cardio: Rate: regular rate GI: Inspection: non-distended GI Palp: No abdominal tenderness and Yes Soft to palpation Auscultation: normal bowel sounds : Other: fundus firm Skin: General skin exam: normal color Neuro: General: patient oriented x3 Extrem: General: normal to inspection Psych: Appearance: grossly normal Affect: normal affect Attitude: cooperative DS: Data Data Completed and Pending Pending studies at discharge: Pending at discharge 10/18/24 12:35 Surgical [PTH] Routine Labs on day of discharge: Labs from last 24 hours 10/19/24 05:33 WBC 9.8 RBC 3.94 L Hgb 12.3 Hct 37.4 MCV 94.9 MCH 31.2 MCHC 32.9 RDW 13.2 Plt Count 131 L MPV 10.6 H % Immature Plt Fraction 4.6 Sodium 137 Potassium 4.0 Chloride 108 H Carbon Dioxide 21 L Anion Gap 8 BUN 7 Creatinine 0.38 L Estim Creat Clear Calc 204 Estimated GFR > 60 Glucose 86 Calcium 8.5 Total Bilirubin 0.3 AST 33 ALT 27 Alkaline Phosphatase 102 Total Protein 6.0 L Albumin 2.8 L Discharge Plan Discharge Attending physician on discharge: Sade Flores Discharging Clinician: Sade Flores Anticipated Discharge Date/Time: 10/19/24 14:00 Patient Disposition: Home, Self-Care Activity: may shower and pelvic rest Diet: regular Discharge Instructions: Education: Mom and Baby Guide Given to: Mother Follow-Up: Call your delivering provider's office for an appointment to be seen in: call and make an appointment Mom and baby should come to the [facility] for the follow-up appointment. Appointment Date/Time: October 20, 2024 at 2:30 pm What to expect at your follow-up visit: Blood Pressure Check Physical Assessment Call [phone] if you are unable to keep your appointment time. BREAST CARE: * Wear a snug supportive bra. * For engorgement discomfort: Breast Feeding: * Apply warm moist washcloths * Express milk as needed to relieve engorgement * Wear loose clothing Bottle Feeding: * May apply ice packs * For sore nipples: * Identify correct latch-on * Apply warm moist washcloths before and after nursing * Air dry nipples after nursing * May apply Lansinoh cream to nipples EPISIOTOMY/PERINEAL CARE: * Until bleeding stops, use your sergio bottle after urinating * Change your pad frequently throughout the day * You may take sitz baths several times a day (fill your bathtub with warm water and soak for 20 minutes.) Do NOT bathe in the water * No tub baths until seen by your physician - You may shower ACTIVITY: * Rest as much as possible. * Do not exercise or lift anything heavier than your baby (such as laundry or other children.) * Avoid stairs or driving as much as possible. * Do not put anything into the vagina. No douching, tampons, or sexual activity until seen by physician. NOTIFY PHYSICIAN IF YOU HAVE ANY QUESTIONS OR IF ANY OF THE FOLLOWING SYMPTOMS OCCUR: * If your episiotomy or incision becomes red, swollen, or more painful than what you have experienced in the hospital. * If your vaginal bleeding becomes foul smelling. * If your vaginal bleeding becomes more heavy than a period or if your bleeding changes from pink to bright red. However, you may pass an occasional walnut-siz ed clot once or twice for the first week . * If you experience a sharp, shooting pain in you calves. * If you discover a hard, reddened area on your breast or if you experience flu- like symptoms. DIET: * Eat regular, well-balanced meals. * Drink plenty of fluids daily. If , drink to thirst. Patient Instructions: Vaginal Delivery (DC) Patient Language: Wolof Stand Alone Forms: General Discharge Information Follow-up/Referrals: Sade Flores MD [Physician] - 4 Weeks Discharge Medications: New acetaminophen 325 mg Tablet 650 mg PO Q6H PRN (Reason: Mild Pain (1-3) Or Headache) Qty: 60 0RF docusate sodium 100 mg Capsule 100 mg PO BID PRN (Reason: Constipation) Qty: 90 0RF ibuprofen 600 mg Tablet 600 mg PO Q6H PRN (Reason: Cramping) Qty: 40 0RF Continued prenat.vits,zaki,[id number] Tablet 1 tablet PO DAILY 90 Days Qty: 90 3RF Discontinued aspirin 81 mg tablet,chewable 81 mg PO DAILY Date of admission: 10/17/24 17:10 Primary Care Provider: Karen Joseph Admitting Provider: Sade Flores Attending physician on admission: Sade Flores Condition: Stable
--- NOTE | 2024-10-19 07:57 | PC.NURSE ---
Consulted with mother concerning needs and she shared her ability to independently latch infant optimally without pain. Mother is feeding appropriately for growth of infant and understands stimulating to eat if needed. Infant has had appropriate feedings in the last 24 hours meets the outcomes for weight, output, blood sugar and jaundice at this time. Reinforced understanding of milk production, transition of milk, signs of adequate intake, transition of stool, prevention/relief of engorgement, plugged ducts, mastitis, responsive watching for feeding cues, the different methods of stimulating infant to breastfeed 1-3 hours after the start of the last feeding, community resources, and when to call a provider using the resource of the feeding sheet along with the mom and baby guide. Discussed position changes to decrease nipple pain along with the use of lanolin and gel cooling pads. Latch observed at this time, infant nursing on the left breast. Mother voiced understanding of the information shared, is confident to continue effectively her at home, when to call for assistance, denies any additional assistance or education at this time. Reported to the Primary RN.
[2024-10-19] MEDS: IBUPROFEN 600 MG TABLET PO (12:30)
--- NOTE | 2024-10-19 13:29 | WPDANLDPN2 ---
Anes-Prog Note L&D Date/Time: 10/19/24 13:29 Comfortable throughout: labor and delivery Neuraxial method: epidural Epidural/Spinal procedure site: clean & non-tender Neuro status: Neuro function grossly intact. Cardiovascular status: normal Respiratory status: normal Airway patency: baseline Mental status: baseline Post-Op hydration status: normal Vital Signs: Last Vital Signs Temp 98 F 10/19/24 07:05 Pulse 69 10/19/24 07:05 Resp 16 10/19/24 07:05 BP 121/80 10/19/24 07:05 Pulse Ox 97 10/19/24 07:05 O2 Del Method Room Air 10/18/24 21:02 Pain score (VAS): 0 Post-procedural complaints: none Patient feedback: Patient satisfied with anesthetic care.
[2024-10-20 14:57] VITALS: BP 129/89; PULSE 81; RESP 18; TEMP 36.6; O2SAT 97
== END 2024-10-19 14:00 | disposition home or self-care (01) | DRG 807 ==
LOC: ANHLDR 17:13 → ANHOB2 10-18 14:39
PROVIDERS: Admitting Provider Obstetrics & Gynecology; PCP Family Medicine; Visit Provider Obstetrics & Gynecology
DX: O69.81X0 Labor and delivery complicated by cord around neck, without compression, not applicable or unspecified (principal); Z37.0 Single live birth; Z3A.40 40 weeks gestation of pregnancy; O70.0 First degree perineal laceration during delivery
CPT/HCPCS: 36415; 80053; 85025; 85027; 85055; 86593; 86703; 86850; 86900; 86901; 88307; A9270; G0432; J2590; J2795; J7120